=== PATIENT | female | born 1965 | race Caucasian/White ===

== ENCOUNTER 2023-04-28 09:40 | Emergency (ER) | payer MEDICARE, MEDICAID, SELFPAY ==
[2023-04-28] VITALS (20 sets, daily range): BP systolic 126; BP diastolic 90; PULSE 71–92; RESP 11–25; TEMP 36.7–37.1; O2SAT 92–97; BMI 32.1
--- NOTE | 2023-04-28 09:54 | XR_ITS ---
The [address] [address] Patient Name: AMALIA FONTAINE MRN: [id number] date: 1965 Sex: F Assigned Patient Location: ED.MAIN Current Patient Location: ER Accession/Order Number: [id number] Exam Date: 04/28/2023 10:30 Report Date: 04/28/2023 10:50 At the request of: VICTORIA DORSEY Procedure: XR chest 2V EXAM: CHEST 2 VIEWS HISTORY: shortness of breath TECHNIQUE: PA and lateral views chest. COMPARISON: 10/12/2022. FINDINGS: Small area of curvilinear atelectasis is seen at the lateral left lower lobe. There is no focal lung consolidation, pleural effusion or pneumothorax. Pulmonary vasculature is within normal limits there is aortic atherosclerosis. Heart size within normal limits. There are degenerative spurs of the thoracic spine. XR/XR chest 2V IMPRESSION: 1. Small area of curvilinear atelectasis at the left lower lobe. Otherwise, clear lungs without acute cardiopulmonary disease. 2. Atherosclerosis and normal heart size. Electronically authenticated by: ADÁN GASCA Date: 04/28/2023 10:50
--- NOTE | 2023-04-28 10:19 | ECG_ITS ---
The [facility] Test Date: 2023-04-28 Pat Name: AMALIA FONTAINE Department: Room: - Gender: Female [employer]: : 1965 Requested By: LUCI CASTRO Order Number: [id number] Reading MD: JORDANA HALL Measurements Intervals [place] Rate: 77 P: 53 PA: 134 QRS: 70 QRSD: 90 T: 48 QT: 378 QTc: 410 Interpretive Statements 1100 Sinus rhythm 9110 normal ECG No previous ECG available for comparison Electronically Signed On 04-29-2023 12:34:50 EDT by JORDANA HALL
[2023-04-28] MEDS: IPRATROPIUM/ALBUTEROL SULFATE 3 ML AMPUL.NEB IH (11:04)
[2023-04-28 12:44] LABS: SARS-CoV-2 Ag NEGATIVE (NEGATIVE)
--- NOTE | 2023-04-28 12:45 | ED.GENADUL1 ---
HPI - General Adult General Chief complaint: Shortness of Breath/Dyspnea Stated complaint: SHORTNESS OF BREATH Time Seen by Provider: 04/28/23 10:18 Source: patient Mode of arrival: walk-in History of Present Illness HPI narrative: Patient is a 57-year-old female who is presenting to the Emergency Room chief complaint flulike symptoms for the past 2 days. Patient's had a cold, sinus congestion, sinus headache, cough, congestion, and short of breath for the past 2 days. Patient does have a history of emphysema and chronic obstructive pulmonary disease. Patient is not a diabetic. Patient does have inhalers and aerosol machines at home. Patient has been taking DayQuil and intermittent aerosol with little relief. Patient has no recent traveling, no other sick contacts. Patient has no chest pain or heaviness. Patient does have shortness of breath with exertion, she can feel herself wheezing. No dental pain, nausea vomiting. No diarrhea. No rash. No acute complaints. Patient was not initially concerned about, but then she did finally agree to take a COVID test. . All systems are negative except as noted/marked. All systems reviewed and otherwise negative. . Nurses note and vital signs reviewed and patient is not hypoxic. General: The patient appears well and in no apparent distress. Patient is resting comfortably on cart. Patient is not toxic, lethargic, or listless Skin: Warm, dry, no pallor noted. There is no rash noted. No petechiae, purpura. Head: Normocephalic, atraumatic, Patient has mild tenderness to palpation to bilateral frontal maxillary sinus. Eye: Normal conjunctiva, no drainage, EOMI. PERRL Ears, Nose, Mouth, and Throat: oral mucosa is moist. Nares patent. Mouth without vesicles. Cardiovascular: Regular Rate and Rhythm, no murmur, gallop, rub Respiratory: Patient is in no distress, no accessory muscle use, lungs are Bilateral expiratory/inspiratory wheezing, NO rales or rhonchi Back: non-tender, no CVA tenderness bilaterally to percussion. No CT LS midline pain GI: soft, no tenderness to palpation, no masses appreciated. No rebound, guarding, or rigidity noted. No flank pain bilateral, No distention Musculoskeletal: Patient has full range of motion of all of the extremities, no motor, sensory, or focal neurological deficits Neurological: A&O x3, normal speech Psychiatric: Cooperative Related Data Previous Rx's Medication Instructions Recorded prednisone 50 mg tablet 50 mg PO DAILY 3 days #3 tabs 04/28/23 Allergies Allergy/AdvReac Type Severity Reaction Status Date / Time theophylline AdvReac Shakiness Verified 04/28/23 09:51 Exam Constitutional Vital Signs, click to edit/add: Last Vital Signs Temp 98.7 F 04/28/23 14:05 Pulse 79 04/28/23 14:05 Resp 18 04/28/23 14:05 BP 126/90 04/28/23 09:45 Pulse Ox 93 L 04/28/23 14:05 O2 Del Method Room Air 04/28/23 14:05 Course Vital Signs Vital signs: Vital Signs Temperature 98.0 F 04/28/23 09:45 Pulse Rate 83 04/28/23 09:45 Respiratory Rate 22 04/28/23 09:45 Blood Pressure 126/90 04/28/23 09:45 Pulse Oximetry 95 04/28/23 09:45 Oxygen Delivery Method Room Air 04/28/23 09:45 Temperature 98.7 F 04/28/23 14:05 Pulse Rate 79 04/28/23 14:05 Respiratory Rate 18 04/28/23 14:05 Blood Pressure 126/90 04/28/23 09:45 Pulse Oximetry 93 L 04/28/23 14:05 Oxygen Delivery Method Room Air 04/28/23 14:05 Medical Decision Making MDM Narrative Medical decision making narrative: Chest x-ray shows no acute cardiopulmonary disease, no infiltrate. Patient COVID test is negative. Patient was educated on using DayQuil, NyQuil, Flonase at home. Patient Was given 3 day prescription for prednisone. Patient will continue using Tylenol and anti-inflammatories. Patient has intermittently used DayQuil and Motrin. Patient will follow-up with PCP, no questions at discharge. Lab Data Labs: Lab Results 04/28/23 Range/Units 12:20 SARS-CoV-2 (PCR) Negative (NEGATIVE) SARS-CoV-2 RNA (JEET) Not detected (NOT DETECTE) ECG Data Attestation: I personally reviewed and interpreted this ECG as follows: (EKG interpretation. Normal sinus rhythm at 77 beats a minute. Normal axis deviation. No acute ST elevation, no acute ectopy. QTC of 410.) Discharge Plan Discharge Chief Complaint: Shortness of Breath/Dyspnea Clinical Impression: URI (upper respiratory infection), Cough, Sinusitis, COPD exacerbation Patient Disposition: Home, Self-Care Condition: Good Prescriptions / Home Meds: New prednisone 50 mg tablet 50 mg PO DAILY 3 Days Qty: 3 0RF Instructions: Sinusitis (ED), Upper Respiratory Infection (ED), COPD (Chronic Obstructive Pulmonary Disease) (ED) Additional Instructions: Use [id number] DayQuil, NyQuil, Flonase. Use and continue using Tylenol and Motrin. 3 days of prednisone have been prescribed to him, continue using inhalers and nebulizers at home. Today work note given. Increase fluids. Stand Alone Forms: Work/School Release, Portal Instructions Referrals: Viridiana Mark [Primary Care Provider] - 1 week Discharge Date/Time: 04/28/23 14:07
[2023-04-28 15:27] LABS: SARS-CoV-2 NAA NOT DETECTED (NOT DETECTE)
== END 2023-04-28 14:07 | disposition home or self-care (01) ==
PROVIDERS: Emergency Provider Emergency Medicine; PCP Nurse Practitioner
DX: J06.9 Acute upper respiratory infection, unspecified (principal); R05.9 Cough, unspecified; J32.9 Chronic sinusitis, unspecified; J43.9 Emphysema, unspecified; Z20.822 Contact with and (suspected) exposure to COVID-19
CPT/HCPCS: 71046; 87635; 87811; 93005; 94640; 99285; U0003

== ENCOUNTER 2023-10-10 12:10 | Emergency (ER) | payer MEDICARE, MEDICAID, SELFPAY ==
[2023-10-10] VITALS (8 sets, daily range): BP systolic 131–143; BP diastolic 75–87; PULSE 71–88; RESP 12–22; TEMP 36.8; O2SAT 95–96; BMI 29.3
--- NOTE | 2023-10-10 12:56 | ECG_ITS ---
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
--- NOTE | 2023-10-10 12:57 | XR_ITS ---
The [address] [address] Patient Name: AMALIA FONTAINE MRN: [id number] date: 1965 Sex: F Assigned Patient Location: ER Current Patient Location: ER Accession/Order Number: [id number] Exam Date: 10/10/2023 13:40 Report Date: 10/10/2023 14:34 At the request of: ABDOUL CORDOVA Procedure: XR chest 2V EXAM: CHEST 2 VIEWS HISTORY: shortness of breath cough and congestion. TECHNIQUE: PA and lateral views chest. COMPARISON: 04/28/2023 FINDINGS: Small area of curvilinear atelectasis in the lingula is unchanged. There is no focal lung consolidation, pleural effusion or pneumothorax. Pulmonary vasculature is within normal limits. The cardiomediastinal silhouette is normal. XR/XR chest 2V IMPRESSION: 1. No acute cardiopulmonary disease. Small area of curvilinear atelectasis in the lingula unchanged. Electronically authenticated by: ADÁN GASCA Date: 10/10/2023 14:34
[2023-10-10 13:33] LABS: Basophils Absolute Auto 0.1 10^3/uL (0.0-0.1); Basophils Percent Auto 1.2 % (0.2-2.0); Eosinophils Absolute Auto 0.1 10^3/uL (0.0-0.7); Eosinophils Percent Auto 1.2 % (0.9-7.0); Hematocrit 43.6 % (36.0-48.0); Hemoglobin 14.7 g/dL (12.0-16.0); Immature Granulocytes Abs Auto 0.01 10^3/uL (0.00-0.03); Immature Granulocytes Pct Auto 0.2 % (0.0-0.5); Lymphocytes Absolute Auto 1.5 10^3/uL (1.2-3.8); Mean Corpuscular HGB Conc 33.7 g/dL (29.9-35.2); Mean Corpuscular Hemoglobin 31.1 pg (26.7-34.0); Mean Corpuscular Volume 92.2 fL (81.0-99.0); Mean Platelet Volume 9.5 fL (9.5-13.5); Monocytes Absolute Auto 0.4 10^3/uL (0.3-0.8); Monocytes Percent Auto 8.4 % (1.7-12.0); Neutrophils Absolute Auto 2.8 10^3/uL (1.4-6.5); Platelet Count 261 10^3/uL (150-450); Red Blood Count 4.73 10^6/uL (4.20-5.40); Red Cell Distribution Width 13.7 % (11.0-15.0); White Blood Count 4.9 10^3/uL (4.0-11.0)
[2023-10-10 14:36] LABS: Anion Gap 15.1; BUN Creatinine Ratio 7.9; Calcium 9.2 mg/dL (8.5-10.1); Carbon Dioxide 24.4 mmol/L (21.0-32.0); Chloride 107 mmol/L (98-107); Estimated GFR (African America >60 (>=60); Estimated GFR (Non-African Ame >60 (>=60); Glucose 92 mg/dL (74-106); Potassium 3.5 mmol/L (3.5-5.1); Sodium 143 mmol/L (136-145)
--- NOTE | 2023-10-10 19:47 | ED.GENADUL1 ---
HPI - General Adult General Chief complaint: Upper Respiratory Infection Stated complaint: COUGH/CONGESTION Time Seen by Provider: 10/10/23 12:55 Source: patient Mode of arrival: walk-in Limitations: no limitations History of Present Illness HPI narrative: 57-year-old female to the emergency department with chief complaint of cough. Patient reports she has a history of chronic obstructive pulmonary disease. She is on prednisone a few weeks ago and had improved however she continues to have a productive cough she is using breathing treatments at home with minimal relief. She denies any chest pain. She denies any fever, sweats, chills. She denies any leg swelling. Related Data Home Medications Medication Instructions Recorded Confirmed albuterol sulfate 2.5 mg/3 mL 2.5 mg continuous nebulization Q4H 10/10/23 10/10/23 (0.083 %) solution for nebulization budesonide 160 mcg-glycopyr 9 2 inh inhalation BID 10/10/23 10/10/23 mcg-formot 4.8 mcg/actuation HFA inhaler ([employer]) Previous Rx's Medication Instructions Recorded azithromycin 250 mg tablet See Rx Instructions PO .COMPLEX #6 10/10/23 (Zithromax Z-Gilson) tabs prednisone 20 mg tablet 60 mg (3 x 20 mg) PO DAILY 5 days 10/10/23 #15 tabs Allergies Allergy/AdvReac Type Severity Reaction Status Date / Time theophylline AdvReac Shakiness Verified 10/10/23 12:20 Review of Systems ROS Status of ROS 10 or more systems reviewed and unremarkable except as noted in history and below [facility] Social History Smoking status: Current every day smoker Exam Narrative Exam Narrative: VITALS: I have reviewed the triage vital signs. GENERAL: Well developed, well appearing adult in no acute distress. NEURO: Alert and oriented. Moves all extremities. Face is symmetric and expressive. EYES: PERRL. No scleral icterus or conjunctival injection. No discharge. HENT: Normocephalic, atraumatic. Hearing is grossly intact. Nares grossly patent and without discharge. Mucous membranes moist. NECK: No JVD. Patient moves neck without restriction. CARDIO: Rhythm regular. Normal rate. No murmur, rub, or gallop. Pulses equal bilaterally in the upper and lower extremity. No lower extremity edema. PULM:Dry cough on exam. Trace wheezes. No conversational dyspnea. No increased work of breathing. GI/: Abdomen is soft and non-tender. Normoactive bowel sounds. EXTREMITIES: Symmetric muscle bulk. No joint swelling. No clubbing, cyanosis, or deformity. SKIN: Warm and dry. Normal turgor. No rash or lesions appreciated. PSYCH: Mood, affect, and interaction is appropriate to the setting. Constitutional Vital Signs, click to edit/add: Last Vital Signs Temp 98.3 F 10/10/23 12:21 Pulse 79 10/10/23 13:30 Resp 21 10/10/23 13:30 BP 131/75 10/10/23 13:09 Pulse Ox 96 10/10/23 13:50 O2 Del Method Room Air 10/10/23 12:21 Course Vital Signs Vital signs: Vital Signs Temperature 98.3 F 10/10/23 12:21 Pulse Rate 77 10/10/23 12:21 Blood Pressure 143/87 H 10/10/23 12:21 Pulse Oximetry 96 10/10/23 12:21 Oxygen Delivery Method Room Air 10/10/23 12:21 Temperature 98.3 F 10/10/23 12:21 Pulse Rate 79 10/10/23 13:30 Respiratory Rate 21 10/10/23 13:30 Blood Pressure 131/75 10/10/23 13:09 Pulse Oximetry 96 10/10/23 13:50 Oxygen Delivery Method Room Air 10/10/23 12:21 Medical Decision Making MDM Narrative Medical decision making narrative: 57-year-old female chronic obstructive pulmonary disease to the emergency Department chief complaint of cough and mild shortness of breath. Vital stable, patient is afebrile. Chest x-ray with lingular infiltrate by my read. She does have productive cough. This may correlate to a infiltrative pneumonia. Labwork otherwise unremarkable. EKG without acute findings. Z-Gilson and prednisone are prescribed. She'll continue breathing treatments at home. Return precautions were discussed. All questions were answered. The patient was discharged home. Medical Records Medical records reviewed: Yes I reviewed the patient's medical records Lab Data Lab results reviewed: Yes I reviewed the patient's lab results Labs: Lab Results 10/10/23 Range/Units 13:20 WBC 4.9 (4.0-11.0) 10^3/uL RBC 4.73 (4.20-5.40) 10^6/uL Hgb 14.7 (12.0-16.0) g/dL Hct 43.6 (36.0-48.0) % MCV 92.2 (81.0-99.0) fL MCH 31.1 (26.7-34.0) pg MCHC 33.7 (29.9-35.2) g/dL RDW 13.7 (11.0-15.0) % Plt Count 261 (150-450) 10^3/uL MPV 9.5 (9.5-13.5) fL Neut % (Auto) 58.0 (43.0-75.0) % Lymph % (Auto) 31.0 (20.5-60.0) % [place] % (Auto) 8.4 (1.7-12.0) % Eos % (Auto) 1.2 (0.9-7.0) % Baso % (Auto) 1.2 (0.2-2.0) % Neut # (Auto) 2.8 (1.4-6.5) 10^3/uL Lymph # (Auto) 1.5 (1.2-3.8) 10^3/uL [place] # (Auto) 0.4 (0.3-0.8) 10^3/uL Eos # (Auto) 0.1 (0.0-0.7) 10^3/uL Baso # (Auto) 0.1 (0.0-0.1) 10^3/uL Abs Immat Gran (auto) 0.01 (0.00-0.03) 10^3/uL Imm/Tot Granulo (auto) 0.2 (0.0-0.5) % Sodium 143 (136-145) mmol/L Potassium 3.5 (3.5-5.1) mmol/L Chloride 107 (98-107) mmol/L Carbon Dioxide 24.4 (21.0-32.0) mmol/L Anion Gap 15.1 BUN 5.0 L (7.0-18.0) mg/dL Creatinine 0.63 (0.55-1.02) mg/dL Est GFR ( Amer) >60 (>=60) Est GFR (Non-Af Amer) >60 (>=60) BUN/Creatinine Ratio 7.9 Glucose 92 (74-106) mg/dL Calcium 9.2 (8.5-10.1) mg/dL NT-Pro-B Natriuret Pep 99.0 (<=900.0) pg/mL ECG Data Attestation: ?I have reviewed the pertinent ECG results. (No STEMI. Normal QTC. Normal rate.) Discharge Plan Discharge Chief Complaint: Upper Respiratory Infection Clinical Impression: COPD exacerbation, Pneumonia Patient Disposition: Home, Self-Care Time of Disposition Decision: 15:20 Condition: Good Mode of Transportation: Private Vehicle Prescriptions / Home Meds: New azithromycin [Zithromax Z-Gilson] 250 mg tablet See Rx Instructions .ROUTE .COMPLEX Qty: 6 0RF Rx Instructions: For 250 mg dose pack: take 500 mg today (day 1), then 250 mg for 4 days (days 2-5) prednisone 20 mg tablet 60 mg PO DAILY 5 Days Qty: 15 0RF No Action albuterol sulfate 2.5 mg /3 mL (0.083 %) solution for nebulization 2.5 mg continuous nebulization Q4H [facility] [employer] 160-9-4.8 mcg/actuation HFA aerosol inhaler 2 inh INHALATION BID Print Language: [place] Instructions: COPD (Chronic Obstructive Pulmonary Disease) (ED), Community Acquired Pneumonia (ED) Referrals: Viridiana Mark NP [Primary Care Provider] - 1 week Discharge Date/Time: 10/10/23 15:32 Stand Alone Forms: Portal Instructions
== END 2023-10-10 15:32 | disposition home or self-care (01) ==
PROVIDERS: Emergency Provider Student in an Organized Health Care Education/Training Program; PCP Nurse Practitioner
DX: J18.9 Pneumonia, unspecified organism (principal); J44.1 Chronic obstructive pulmonary disease with (acute) exacerbation; J44.0 Chronic obstructive pulmonary disease with (acute) lower respiratory infection; Z79.51 Long term (current) use of inhaled steroids; F17.200 Nicotine dependence, unspecified, uncomplicated; R06.02 Shortness of breath
CPT/HCPCS: 36415; 71046; 80048; 83880; 85025; 93005; 99285

== ENCOUNTER 2024-05-17 08:40 | Outpatient (OUT) | payer MEDICARE, MEDICAID, SELFPAY ==
--- OUTSIDE RECORDS SUMMARY | 2024-05-17 08:43 | XMS_ITS | CCD ---
Author Organization [facility] [place] [facility] Care Team Providers Care Safety Director Name Role Phone Ale Victoria Unavailable AICHHOLZ, LEGAL SUPPORT SPECIALIST LUCI Primary Care Unavailable MARKER ., DR TUCKER Admitting Unavailable MARKER ., DR TUCKER Attending Unavailable MARKER ., DR TUCKER Consulting Unavailable TRISTIAN GASPAR Consulting Unavailable AICHHOLZ, LEGAL SUPPORT SPECIALIST LUCI Admitting Unavailable AICHHOLZ, LEGAL SUPPORT SPECIALIST LUCI Attending Unavailable AICHHOLZ, LEGAL SUPPORT SPECIALIST LUCI Primary Care Unavailable AICHHOLZ, LEGAL SUPPORT SPECIALIST LUCI Consulting Unavailable AICHHOLZ, LEGAL SUPPORT SPECIALIST LUCI Admitting Unavailable AICHHOLZ, LEGAL SUPPORT SPECIALIST LUCI Attending Unavailable AICHHOLZ, LEGAL SUPPORT SPECIALIST LUCI Primary Care Unavailable TRISH, DR CANDI Ramirez Consulting Unavailable AICHHOLZ, LEGAL SUPPORT SPECIALIST LUCI Consulting Unavailable AICHHOLZ, LEGAL SUPPORT SPECIALIST LUCI Primary Care Unavailable TENZIN LONGO Admitting Unavailable JAMES ., TENZIN Attending Unavailable TENZIN LONGO Consulting Unavailable CANDI LANGFORD Consulting Unavailable AICHHOLZ, LEGAL SUPPORT SPECIALIST LUCI Primary Care Unavailable JOSHUA ., DR NOE Admitting Unavailable HAY ., DR NOE Attending Unavailable HAY ., DR NOE Consulting Unavailable AICHHOLZ, LEGAL SUPPORT SPECIALIST LUCI Primary Care Unavailable HAY ., DR NOE Admitting Unavailable JOSHUA ., DR NOE Attending Unavailable KOLTON .NEGIN Consulting UnavailLOWELL De Santiago Consulting Unavailable Magdalena Carrington Unavailable Saad Boyce MD Primary Care Provider AICHHOLZ, LUCI J Primary Care Unavailable SONAL JIM Attending Unavailable SONAL JIM Attending Unavailable SONAL JIM Referring Unavailable AICHHOLZ, LUCI J Primary Care Unavailable AICHHOLZ, LUCI J Primary Care Unavailable ALEC BASS Attending Unavailable ALEC BASS Attending Unavailable ALEC BASS Referring Unavailable AICHHOLZ, LUCI J Primary Care Unavailable ZANDRA BAI Attending Unavailable ZANDRA BAI Referring Unavailable LUCI CASTRO Attending Unavailable LUCI CASTRO Attending Unavailable Allergies Allergy Classification Reported Allergen(s) Allergy Type Date of Onset Reaction(s) Facility (3 sources) Theophylline; Translations: [THEOPHYLLINE] Drug Allergy 11-29-2023 pavan [facility] Repository (1 source) Theophylline Drug Allergy [facility] Repository Medications Current Medications Medication Drug Class(es) Dates Sig (Normalized) Sig (Original) Albuterol (4 sources) beta2-Adrenergic Agonist Ventolin HFA Act anand Albuterol Active Breztri Aerosphere (2 sources) Breztri Aerosphe re Active Budesonide / formoterol (2 sources) Corticosteroid, beta2-Adrenergic Agonist Symbicort Active cetirizine hydrochloride 10 mg oral tablet (1 source) Histamine-1 Receptor Antagonist Start: 10-04-2022 take 1 tablet by mouth every twenty-four hours Cetirizine HCl 10 MG 1 tablet Orally Once a day for 30 day(s) Sep, Active methylPREDNISolone (2 sources) Corticosteroid methylPREDNISolo ne Not-Taking Phentermine (1 source) Sympathomimetic Amine Anorectic Adipex-P Active Completed/Discontinued Medications Medication Drug Class(es) Dates Sig (Normalized) Sig (Original) azelastine (1 source) Histamine-1 Receptor Antagonist Azelastine HCl Not-Taking cephalexin 500 mg oral capsule (1 source) Cephalosporin Antibacterial Start: 02-20-2019 take 1 capsule by mouth every twelve hours Cephalexin 500 MG 1 capsule Orally every 12 hrs for 10 day(s) Feb, Not-Taking fluticasone (1 source) Corticosteroid Fluticasone Propionate Not-Taking lidocaine hydrochloride 20 mg/ml mucous membrane topical solution (1 source) Antiarrhythmic, Amide Local Anesthetic Start: 02-20-2019 take 10 mL by mouth every three hours Lidocaine Viscous 2 % 10 ml swish in mouth, gargle, and spit. every 3 hrs for 2 days Feb, Not-Taking naproxen 500 mg oral tablet (1 source) Nonsteroidal Anti-inflammatory Drug Start: 2016 take 1 tablet by mouth every twelve hours Naproxen 500 MG 1 tablet as needed Orally every 12 hrs Nov, Not-Taking Theophylline (1 source) Methylxanthine Theophylline ER Not-Taking triamcinolone acetonide 40 mg/ml injectable suspension (1 source) Corticosteroid Start: 10-04-2022 Kenalog-40 28 Sep, 2022 40 mg Problems Active Problems Problem Classification Problem Date Documented Da te Episodic/Chronic Anxiety disorders (4 sources) Anxiety disorder, unspecified; Translations: [ANXIETY DISORDER UNSPECIFIED] Onset: 08-01-2022 Chronic Chronic obstructive pulmonary disease and bronchiectasis (4 sources) Chronic obstructive pulmonary disease with (acute) exacerbation; Translations: [Chronic obstructive pulmonary disease, unspecified] Onset: 08-02-2022 Chronic E Codes: Fall (1 source) Unspecified fall, initial encounter; Translations: [Unspecified fall, initial encounter] Onset: 04-07-2024 Episodic E Codes: Fall (1 source) Fall Onset: 04-07-2024 Headache; including migraine (3 sources) Headache; including migraine; Translations: [HEADACHE UNSPECIFIED] Onset: 01-13-2022 Other aftercare (1 source) Other buttermaker helper (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) drug therapy; Translations: [OTH MIXER AND SCALER CURRENT DRUG THERAPY] Onset: 08-02-2022 Episodic Other lower respiratory disease (4 sources) Shortness of breath; Translations: [SHORTNESS OF BREATH] Onset: 04-11-2022 Episodic Other lower respiratory disease (1 source) Rib pain Onset: 02-28-2024 Episodic Other non-traumatic joint disorders (1 source) Pain in left knee; Translations: [Pain in left knee] Onset: 04-07-2024 Episodic Respiratory failure; insufficiency; arrest (adult) (1 source) Dependence on supplemental oxygen; Translations: [DEPENDENCE ON SUPPLEMENTAL OXYGEN] Onset: 04-14-2022 Chronic Screening and history of mental health and substance abuse codes (1 source) Personal history of nicotine dependence; Translations: [PERSONAL HISTORY OF NICOTINE DEPEND] Onset: 10-14-2022 Episodic Sprains and strains (1 source) Strain of muscle and tendon of front wall of thorax, initial encounter; Translations: [Strain of muscle and tendon of front wall of thorax, initial encounter] Onset: 02-28-2024 Episodic Superficial injury; contusion (1 source) Contusion of eyeball and orbital tissues, left eye, initial encounter; Translations: [Contusion of eyeball and orbital tissues, left eye, initial encounter] Onset: 04-07-2024 Episodic Unclassified (2 sources) COUGH, UNSPECIFIED; Translations: [COUGH, UNSPECIFIED] Onset: 10-14-2022 Unclassified (1 source) PAIN RT RIBS Onset: 02-28-2024 Viral infection (1 source) COVID-19; Translations: [COVID-19] Onset: 01-16-2022 Past or Other Problems Problem Classification Problem Date Documented Da te Episodic/Chronic Nonspecific chest pain (4 sources) Chest pain, unspecified; Translations: [CHEST PAIN UNSPECIFIED] Onset: 05-16-2022 Episodic Open wounds of extremities (1 source) Laceration without foreign body of right middle finger without damage to nail, initial encounter Onset: 04-08-2022 Resolved: 04-08-2022 Episodic Unclassified (1 source) COUGH, UNSPECIFIED; Translations: [COUGH, UNSPECIFIED] Onset: 10-12-2022 Results Test Name Value Interpretation Reference Range Facility CT BRAIN WO CONTon CT BRAIN WO CONT CT BRAIN WO CONT Examination: Noncontrast brain CT Date of Exam:04/07/2024 Clinical History:Fall head pain Comparison:None Procedure: Multi-detector CT performed through the brain without IV contrast. Automatic exposure control (AEC) was utilized. Findings: There is no intracranial hemorrhage, extra-axial fluid collection, mass effect, or hydrocephalus. Ballesteros-white matter differentiation is appropriate. Infarcts may be occult on CT, but grossly no acute infarct identified There is no midline shift. There is a prominent CSF space at the posterior aspect of the posterior fossa in the midline which could represent a congenital variant. IMPRESSION: 1. No acute findings. All CT scans at this facility use dose modulation, iterative reconstruction, and/or weight based dosing when appropriate to reduce radiation dose to as low as reasonably achievable. Finalized by Fermín Porras MD on 04/07/2024 11:01 AM [facility] CT CERVICAL SPINE WO CONTon 04-07-2024 CT CERVICAL SPINE WO CONT CT CERVICAL SPINE WO CONT Examination: CT cervical spine without contrast. Date of Exam:04/07/2024 Clinical History:Trauma neck pain Comparison:None Procedure: Multi-detector CT performed through the cervical spine in the axial projection with coronal and sagittal reconstructions. Automatic exposure control (AEC) was utilized. Findings: There is no prevertebral soft tissue swelling. There is no fracture, malalignment or destructive lesion. IMPRESSION: 1. No acute findings. All CT scans at this facility use dose modulation, iterative reconstruction, and/or weight based dosing when appropriate to reduce radiation dose to as low as reasonably achievable. Finalized by Fermín Porras MD on 04/07/2024 11:05 AM Normal [facility] CT FACIAL BONES WO CONTon CT FACIAL BONES WO CONT CT FACIAL BONES WO CONT Examination: CT facial bones without contrast. History:Trauma facial pain Procedure: Multidetector CT is performed through the face in the axial projection with coronal reconstructions. Automatic exposure control (AEC) was utilized. Comparison:None Findings: There is no fracture or destructive lesion with attention to orbits, zygomatic arch, nasal bones, and paranasal sinuses. No soft tissue mass within the orbits. Extraocular muscles are symmetric. IMPRESSION: 1. No acute changes. All CT scans at this facility use dose modulation, iterative reconstruction, and/or weight based dosing when appropriate to reduce radiation dose to as low as reasonably achievable. Finalized by Fermín Porras MD on 04/07/2024 11:06 AM Normal [facility] XR RIBS RT 3 VWS W PA CHESTo n 02-28-2024 XR RIBS RT 3 VWS W PA CHEST XR RIBS RT 3 VWS W PA CHEST Right RIBS: HISTORY: Right rib pain. 3 views of the right ribs were obtained. No acute osseous abnormality is seen. No obvious displaced rib fracture. Superior grossly clear. Left hemidiaphragm is slightly eventrated. IMPRESSION: No acute findings. Finalized by Mayo Springer MD on 02/28/2024 10:57 PM Normal [facility] XR CHEST 2 VIEWSon 4 XR CHEST 2 VIEWS FINDINGS: Lung volumes are slightly increased consistent with early COPD changes. No focal infiltrates, nodules or suspicious mass lesions are seen. Mild right lower lobe and lingular subsegmental atelectasis. Bilateral hilar calcified granulomas. Cardiac silhouette and skeletal structure are unremarkable. IMPRESSION: COPD, no localizing of infiltrates. Lingular and basilar findings may represent an interstitial pneumonia if clinically suspect. This can serve as a baseline for follow-up examinations following appropriate medical management TRANSCRIBED BY: ELECTRONICALLY SIGNED BY: Leonardo Metcalf MD Normal Not Available BNPon 10-12-2022 Natriuretic peptide B (Bld) [Mass/Vol] 31.0 pg/mL Normal <=900.0 [facility] Comment on above: Performed By: #### H STROPN, CMP, BNP ####[facility] [address] [place] [address]Dr. Josafat Love CBC AUTO DIFFon 10-12-2022 BASO # 0.0 103/ul Normal 0.0-0.1 [facility] Comment on above: Performed By: #### C BC ####[facility] [address] [place], [place] [address]Dr. Josafat Love Basophils/100 WBC (Bld) 0.4 % Normal 0.2-2.0 [facility] Comment on above: Performed By: #### C BC ####[facility] [address] [place], [place] [address]Dr. Josafat Love EO # 0.1 103/ul Normal 0.0-0.7 [facility] Comment on above: Performed By: #### C BC ####[facility] [address] [place], [place] [address]Dr. Josafat Love Eosinophils/100 WBC (Bld) 1.3 % Normal 0.9-7.0 [facility] Comment on above: Performed By: #### C BC ####[facility] [address] [place], [place] [address]Dr. Josafat Love Erythrocyte distribution width (RBC) [Ratio] 13.1 % Normal 11.0-15.0 [facility] Comment on above: Performed By: #### C BC ####[facility] [address] [place], [place] [address]Dr. Josafat Love Hematocrit (Bld) [Volume fraction] 45.0 % Normal 36.0-48.0 [facility] Comment on above: Performed By: #### C BC ####[facility] [address] [place], [place] [address]Dr. Josafat Love Hemoglobin (Bld) [Mass/Vol] 15.0 g/dL Normal 12.0-16.0 [facility] Comment on above: Performed By: #### C BC ####[facility] [address] [place] [address]Dr. Aprilgeo Love IG # 0.03 10e3/ul Normal 0.00-0.03 [facility] Comment on above: Performed By: #### C BC ####[facility] [address] [place] [address]Dr. Josafat Love IG % 0.3 % Normal 0.0-0.5 [facility] Comment on above: Performed By: #### C BC ####[facility] [address] [place] [address]DrAllyssa Love LYMPH # 1.9 103/ul Normal 1.2-3.8 [facility] Comment on above: Performed By: #### C BC ####[facility] [address] [place] [address]Dr. Josafat Love Lymphocytes/100 WBC (Bld) 19.5 % Critically low 20.5-60.0 [facility] Comment on above: Performed By: #### C BC ####[facility] [address] [place] [address]Dr. Aprilgeo Love MANUAL DIFF REQ NO Normal [facility] Comment on above: Performed By: #### C BC ####[facility] [address] [place] [address]DrAllyssa Josafat Ivan MCH (RBC) [Entitic mass] 29.8 pg Normal 26.7-34.0 [facility] Comment on above: Performed By: #### C BC ####[facility] [address] [place] [address]DrAllyssa Love MCHC (RBC) [Mass/Vol] 33.3 g/dL Normal 29.9-35.2 [facility] Comment on above: Performed By: #### C BC ####[facility] [address] [place] [address]Dr. Josafat Ivan MCV (RBC) [Entitic vol] 89.3 fL Normal 81.0-99.0 [facility] Comment on above: Performed By: #### C BC ####[facility] [address] [place] [address]DrAllyssa Josafat Love MONO # 0.5 103/ul Normal 0.3-0.8 [facility] Comment on above: Performed By: #### C BC ####[facility] [address] [place], [place] [address]DrAlylssa Josafat Ivan Monocytes/100 WBC (Bld) 5.3 % Normal 1.7-12.0 [facility] Comment on above: Performed By: #### C BC ####[facility] [address] [place], [place] [address]Dr. Josafat Love NEUT # 7.2 103/ul Critically high 1.4-6.5 [facility] Comment on above: Performed By: #### C BC ####[facility] [address] [place], [place] [address]Dr. Aprilgeo Love Neutrophils/100 WBC (Bld) 73.2 % Normal 43.0-75.0 [facility] Comment on above: Performed By: #### C BC ####[facility] [address] [place], [place] [address]DrAllyssa Josafat Ivan Platelet mean volume (Bld) [Entitic vol] 8.9 fL Critically low 9.5-13.5 [facility] Comment on above: Performed By: #### C BC ####[facility] [address] [place], [place] [address]Dr. Aprilgeo Ivan PLT 282 103/ul Normal 150-450 [facility] Comment on above: Performed By: #### C BC ####[facility] [address] [place], [place] [address]DrAllyssa Love RBC 5.04 106/ul Normal 4.20-5.40 [facility] Comment on above: Performed By: #### C BC ####[facility] [address] [place], [place] [address]DrAllyssa Love WBC 9.9 103/ul Normal 4.0-11.0 [facility] Comment on above: Performed By: #### C BC ####[facility] [address] [place] [address]Dr. Josafat Love LACTATE/LACTIC ACIDon 2022 Lactate [Moles/Vol] 2.2 mmol/L Critically high 0.4-1.9 [facility] Comment on above: Performed By: #### L ACT #### [facility] [id number] Josafat Love PH VENOUS BLOODon 10-12-2022 PCO2 VENOUS 35.3 mmHg Critically low 40.0-52.0 [facility] Comment on above: Performed By: #### P HVEN ####[facility] [address] [place] [address]DrAllyssa Love pH VENOUS 7.426 Normal 7.330-7.430 [facility] Comment on above: Performed By: #### P HVEN ####[facility] [address] [place] [address]Dr. Josafat Love PROF 14(COMP METB)on 023 Albumin [Mass/Vol] 3.8 g/dL Normal 3.4-5.0 [facility] Comment on above: Performed By: #### H STROPN, CMP, BNP ####[facility] [address] [place] [id number]. Josafat Love Albumin/Globulin [Mass ratio] 1.2 {ratio} Normal [facility] Comment on above: Performed By: #### H STROPN, CMP, BNP ####[facility] [address] [place] [id number] Love ALP [Catalytic activity/Vol] 90 U/L Normal 46-116 [facility] Comment on above: Performed By: #### H STROPN, CMP, BNP ####[facility] [address] [place] [id number] Love ALT [Catalytic activity/Vol] 31 U/L Normal 14-59 [facility] Comment on above: Performed By: #### H STROPN, CMP, BNP ####[facility] [address] [place] [address]Dr. Josafat Love Anion gap [Moles/Vol] 16.3 mmol/L Normal [facility] Comment on above: Performed By: #### H STROPN, CMP, BNP ####[facility] [address] [place] [address]Dr. Josafat Love AST [Catalytic activity/Vol] 18 U/L Normal 15-37 [facility] Comment on above: Performed By: #### H STROPN, CMP, BNP ####[facility] [address] [place] [address]Dr. Josafat Love Bilirubin [Mass/Vol] 0.3 mg/dL Normal 0.2-1.0 [facility] Comment on above: Performed By: #### H STROPN, CMP, BNP ####[facility] [address] [place], [place] [address]Dr. Josafat Love Calcium [Mass/Vol] 9.1 mg/dL Normal 8.5-10.1 [facility] Comment on above: Performed By: #### H STROPN, CMP, BNP ####[facility] [address] [place], [place] [address]Dr. Josafat oLve Chloride [Moles/Vol] 106 mmol/L Normal 98-107 [facility] Comment on above: Performed By: #### H STROPN, CMP, BNP ####[facility] [address] [place] [address]Dr. Josafat Love CO2 [Moles/Vol] 23.8 mmol/L Normal 21.0-32.0 [facility] Comment on above: Performed By: #### H STROPN, CMP, BNP ####[facility] [address] [place] [address]Dr. Josafat Love Creatinine [Mass/Vol] 1.00 mg/dL Normal 0.55-1.02 [facility] Comment on above: Performed By: #### H STROPN, CMP, BNP ####[facility] [address] [place] [address]Dr. Josafat Love EGFR-AF ESTONIAN >60 Normal >=60 [facility] Comment on above: Performed By: #### H STROPN, CMP, BNP ####[facility] [address] [place] [address]Dr. Josafat Love EGFR-NON AF ESTONIAN 57 mL/min/1.73m2 Critically low >=60 [facility] Comment on above: Performed By: #### H STROPN, CMP, BNP ####[facility] [address] [place] [address]Dr. Josafat Love Globulin (S) [Mass/Vol] 3.3 g/dL Normal [facility] Comment on above: Performed By: #### H STROPN, CMP, BNP ####[facility] [address] [place], [place] [address]Dr. Josafat Love Glucose [Mass/Vol] 128 mg/dL Critically high 74-106 [facility] Comment on above: Performed By: #### H STROPN, CMP, BNP ####[facility] [address] [place], [place] [address]Dr. Josafat Love Potassium [Moles/Vol] 4.1 mmol/L Normal 3.5-5.1 [facility] Comment on above: Performed By: #### H STROPN, CMP, BNP ####[facility] [address] [place] [address]Dr. Josafat Love Protein [Mass/Vol] 7.1 g/dL Normal 6.4-8.2 [facility] Comment on above: Performed By: #### H STROPN, CMP, BNP ####[facility] [address] [place] [address]Dr. Josafat Love Sodium [Moles/Vol] 142 mmol/L Normal 136-145 [facility] Comment on above: Performed By: #### H STROPN, CMP, BNP ####[facility] [address] [place] [address]Dr. Josafat Love Urea nitrogen [Mass/Vol] 20.0 mg/dL Critically high 7.0-18.0 [facility] Comment on above: Performed By: #### H STROPN, CMP, BNP ####[facility] [address] [place] [address]Dr. Josafat Love Urea nitrogen/Creatinine [Mass ratio] 20.0 mg/mg Normal [facility] Comment on above: Performed By: #### H STROPN, CMP, BNP ####[facility] [address] [place] [id number]. Josafat Love PROTIMEon 10-12-2022 INR Coag (PPP) [Relative time] {INR} Normal [facility] Comment on above: Performed By: #### P TT, PT #### [facility] [address] [address] [address] Josafat Love INR GUIDELINES SEE BELOW Normal [facility] Comment on above: Result Comment: LIZETH RED INR: 2.0 - 3.0 CONDITIONS NOT LISTED BELOW 2.5 - 3.5 FOR PROSTHETIC HEART VALVE REPLACEMENT 2.5 - 3.5 RECURRENT THROMBOSIS Performed By: #### P TT, PT #### [facility] [address] [address] [address] Josafat Love PT Coag (PPP) [Time] 9.8 s Normal 9.0-11.6 [facility] Comment on above: Performed By: #### P TT, PT #### [facility] [address] [address] [address] Josafat Love PTTon 10-12-2022 aPTT Coag (Bld) [Time] 26.9 s Normal 22.3-36.2 [facility] Comment on above: Performed By: #### P TT, PT #### [facility] [address] [place] [address] Dr. Josafat Love TROPONIN, HIGH SENSITIVITYon 10-12-2022 HSTROP <4.0 Normal 4.0-51.3 [facility] Comment on above: Result Comment: CUT- OFF POINTS HAVE BEEN ESTABLISHED BASED ON THE FOURTH UNIVERSAL DEFINITIONS OF MYOCARDIAL INFARCTION. THE UPPER REFERENCE LIMIT (URL) OF TROPONIN, DEFINED THE 99TH PERCENTILE OF cTnI DISTRIBUTION IN A REFERENCE POPULATION, HAS BEEN CONFIRMED THE DECISION THRESHOLD FOR CO DIAGNOSIS. Performed By: #### H STROPN, CMP, BNP ####[facility] [address] [place], [place] [address]VtAllyssa Love XR CHEST 1 Von 10-12-2022 XR CHEST 1 V EXAM: XR CHEST 1 V REASON FOR EXAM: Female, 56 years, SHORTNESS OF BREATH. TECHNIQUE: A single AP view of the chest is performed. COMPARISON: 04/11/2022. FINDINGS: Cardiac monitoring leads project over the chest. There is minimal linear atelectasis or scar at the lung bases. Normal pleura. Normal size heart. Normal mediastinum and jluis. Normal visualized pulmonary arteries. Normal visualized aortic arch and descending thoracic aorta. Normal visualized thoracic spine. Normal visualized ribs, clavicles, and shoulders. There is no demonstrated abnormality of the visualized soft tissue structures of the upper abdomen. IMPRESSION: Minimal by basilar atelectasis or scar. No significant change from 04/11/2022. Electronically authenticated by: LOWELL VASQUES Date: 2022-10-12 17:11 Normal [facility] STRESS/REST MULTIon 05-16 NM STRESS/REST MULTI Patient: AMALIA FONTAINE Exam Date: 05/16/2022 : 1965 Gender:F Ordering : YA CASTRO [facility] Admission #: [id number] Family : Order #: [id number] CLICK HERE TO VIEW EXAM RADIOLOGY REPORT PROCEDURE: RADIONUCLIDE IMAGING STRESS/REST MULTI COMPARISON: NM STRESS/REST MULTI, 09/14/2017. NM STRESS/REST MULTI, 05/19/2015. INDICATIONS: Chest pain TECHNIQUE: Exam Description: Rest/Stress one day protocol gated SPECT Rest Imagin.7 mCi Tc-99m Cardiolite IV on 05/16/2022 Stress Imaging 30.8 mCi Tc-99m Cardiolite IV on 05/16/2022 Exercise Protocol: 0.4 mg Lexiscan given IV Heart Rate (bpm): Rest: 67 Max: 96 PMHR: 58 Blood Pressure: Rest: 120/82 Max: 124/80 Symptoms: Rest and peak stress ECG findings were normal and the exercise portion of the study was normal per attending physician Dr. Jimenes . For more details please see separate cardiac stress test report. FINDINGS: QUALITY OF STUDY: Good. PERFUSION DEFECT: None. LOCATION: N/A SIZE: N/A. SEVERITY: N/A. TYPE: N/A. WALL MOTION: Normal. LV SIZE: Normal. 55 mL. TID / TCD: None; 0.9 LVEF: Normal. Calculated EF 73%. SUMMARY: Myocardial perfusion imaging study is NORMAL. CONCLUSION: 1. Normal myocardial perfusion scan 2. Normal exercise test Dictated by: Candi Beyer MD on 05/17/2022 at 07:15 Approved by: Candi Beyer MD on 05/17/2022 at 07:17 Normal [facility] XR CHEST 1 Von 04-11-2022 XR CHEST 1 V EXAMINATION: XR CHES T 1 V HISTORY: Soreness of breath COMPARISON: Portable chest 01/13/2022 TECHNIQUE: Portable chest FINDINGS: The lung parenchyma is free of consolidation or infiltrate. No pneumothorax or pleural effusion. The cardiac, mediastinal and hilar contours are normal. The visualized osseous structures exhibit no gross abnormality. IMPRESSION: No acute cardiopulmonary abnormality. Electronically authenticated by: CANDI LANGFORD Date: 2022-04-11 16:00 Normal [facility] XR CHEST 1 Von 01-14-2022 XR CHEST 1 V EXAMINATION: XR CHES T 1 V, 01/13/2022 8:36 PM EDT HISTORY: COUGH COMPARISON: CT chest 09/21/2020. TECHNIQUE: Chest x-ray: One view. FINDINGS: SUPPORT APPARATUS/POST-SURGIC AL CHANGES: None. CARDIOMEDIASTINAL SILHOUETTE: Normal. AIRWAYS/LUNGS: Low lung volumes with mild to moderate bibasilar atelectasis but no focal consolidation. PLEURAL SPACES: No pleural effusion or pneumothorax. BONES AND SOFT TISSUES: No acute abnormality. IMPRESSION: 1. No acute process. 2. Bibasilar atelectasis/scarring. Electronically authenticated by: TRISTIAN GASPAR Date: 2022-01-13 23:23 Normal [facility] CBC AUTO DIFFon 01-13-2022 BASO # 0.0 103/ul Normal 0.0-0.1 [facility] Comment on above: Performed By: #### C BC #### [facility] [address] [address] [address] Josafat Love Basophils/100 WBC (Bld) 0.4 % Normal 0.2-2.0 [facility] Comment on above: Performed By: #### C BC #### [facility] [address] [address] [address] Josafat Love EO # 0.0 103/ul Normal 0.0-0.7 [facility] Comment on above: Performed By: #### C BC #### [facility] [address] [place] [address] Dr. Josafat Love Eosinophils/100 WBC (Bld) 0.6 % Critically low 0.9-7.0 [facility] Comment on above: Performed By: #### C BC #### [facility] [address] [place] [address] Dr. Josafat Love Erythrocyte distribution width (RBC) [Ratio] 13.0 % Normal 11.0-15.0 [facility] Comment on above: Performed By: #### C BC #### [facility] [address] [place] [address] Dr. Josafat Love Hematocrit (Bld) [Volume fraction] 42.6 % Normal 36.0-48.0 [facility] Comment on above: Performed By: #### C BC #### [facility] [address] [place] [address] Dr. Josafat Love Hemoglobin (Bld) [Mass/Vol] 14.4 g/dL Normal 12.0-16.0 [facility] Comment on above: Performed By: #### C BC #### [facility] [address] [place] [address] Dr. Josafat Love IG # 0.02 10e3/ul Normal 0.00-0.03 [facility] Comment on above: Performed By: #### C BC #### [facility] [address] [place] [address] Dr. Josafat Love IG % 0.3 % Normal 0.0-0.5 [facility] Comment on above: Performed By: #### C BC #### [facility] [address] [place] [address] Dr. Josafat Love LYMPH # 0.4 103/ul Critically low 1.2-3.8 [facility] Comment on above: Performed By: #### C BC #### [facility] [address] [place] [address] Dr. Josafat Love Lymphocytes/100 WBC (Bld) 6.4 % Critically low 20.5-60.0 [facility] Comment on above: Performed By: #### C BC #### [facility] [address] [place] [address] Dr. Josafat Love MANUAL DIFF REQ NO Normal [facility] Comment on above: Performed By: #### C BC #### [facility] [address] [place] [address] Dr. Josafat Love MCH (RBC) [Entitic mass] 30.8 pg Normal 26.7-34.0 [facility] Comment on above: Performed By: #### C BC #### [facility] [address] [place] [address] Dr. Josafat Love MCHC (RBC) [Mass/Vol] 33.8 g/dL Normal 29.9-35.2 [facility] Comment on above: Performed By: #### C BC #### [facility] [address] [place] [address] Dr. Josafat Love MCV (RBC) [Entitic vol] 91.2 fL Normal 81.0-99.0 [facility] Comment on above: Performed By: #### C BC #### [facility] [address] [place] [address] Dr. Josafat Love MONO # 0.5 103/ul Normal 0.3-0.8 [facility] Comment on above: Performed By: #### C BC #### [facility] [address] [place] [address] Dr. Josafat Love Monocytes/100 WBC (Bld) 7.9 % Normal 1.7-12.0 [facility] Comment on above: Performed By: #### C BC #### [facility] [address] [place] [address] Dr. Josafat Love NEUT # 5.7 103/ul Normal 1.4-6.5 [facility] Comment on above: Performed By: #### C BC #### [facility] [address] [address] [address] Josafat Love Neutrophils/100 WBC (Bld) 84.4 % Critically high 43.0-75.0 [facility] Comment on above: Performed By: #### C BC #### [facility] [address] [address] [address] Josafat Love Platelet mean volume (Bld) [Entitic vol] 8.5 fL Critically low 9.5-13.5 [facility] Comment on above: Performed By: #### C BC #### [facility] [address] [address] [address] Josafat Love PLT 242 103/ul Normal 150-450 [facility] Comment on above: Performed By: #### C BC #### [facility] [address] [address] [address] Josafat Love RBC 4.67 106/ul Normal 4.20-5.40 [facility] Comment on above: Performed By: #### C BC #### [facility] [address] [address] [address] Josafat Love WBC 6.7 103/ul Normal 4.0-11.0 [facility] Comment on above: Performed By: #### C BC #### [facility] [address] [id number] Josafat Love CULTURE BLOODon 01-13-2022 Microscopic examination of blood, culture Culture Observations: NO GROWTH AT 5 DAYS. Normal [facility] Comment on above: Performed By: #### B LDCX1 ####[facility] [address] [id number] Josafat Love Covid-19 PCR (CVDTBH)on SARS-CoV-2 (COVID-19) RNA JEET+probe Ql (Unsp spec) Detected Critically abnormal NOT DETECTED [facility] Comment on above: Result Comment: This test is not yet approved or cleared by the [place] FDA. When there are no FDA-approved or cleared tests available, and other criteria are met, FDA can make tests available under an emergency access mechanism called an Emergency Use Authorization (EUA). The EUA for this test is supported by the [place] of Health and Human Service's declaration that circumstances exist to justify the emergency use of in vitro diagnostics for the detection and/or diagnosis of the virus that causes COVID-19. This EUA will remain in effect for the duration of the COVID-19 declaration justifying emergency of IVDs, unless it is terminated or revoked by the FDA (after which the test may no longer be used). Performed By: #### C VDTB #### [facility] [address] [place] [address] Dr. Josafat Love INFLUENZA A AND B AGon 01-13 [facility] Normal [facility] Comment on above: Result Comment: Nega tive for Flu A protein angiten. Infection due to Flu A cannot be ruled out. Flu A angiten in the sample may be below the detection limit of the test. Performed By: #### I NFLUAB #### [facility] [address] [place] [address] Dr. Josafat Love INFLUBNEG SEE BELOW Normal [facility] Comment on above: Result Comment: Nega tive for Flu B protein antigen. Infection due to Flu B cannot be ruled out. Flu B antigen in the sample may be below the detection limit of the test. Performed By: #### I NFLUAB #### [facility] [address] [place] [address] Dr. Josafat Love INFLUENZA A AG Negative Normal NEGATIVE SEE COMMENT [facility] Comment on above: Performed By: #### I NFLUAB #### [facility] [address] [place] [address] Dr. Josafat Love INFLUENZA B AG Negative Normal NEGATIVE SEE COMMENT [facility] Comment on above: Performed By: #### I NFLUAB #### [facility] [address] [place] [address] Dr. Josafat Love INTERNAL CONTROLS Within Normal Limits Normal Wi thin Normal Limits [facility] Comment on above: Performed By: #### I NFLUAB #### [facility] [address] [place] [address] Dr. Josafat Love LACTATE/LACTIC ACIDon 2021 Lactate [Moles/Vol] 0.8 mmol/L Normal 0.4-1.9 [facility] Comment on above: Performed By: #### L ACT ####[facility] [address] [address] Josafat Love PROF 14(COMP METB)on 022 Albumin [Mass/Vol] 3.9 g/dL Normal 3.4-5.0 [facility] Comment on above: Performed By: #### C MP #### [facility] [address] [address] [address] Josafat Love Albumin/Globulin [Mass ratio] 1.2 {ratio} Normal [facility] Comment on above: Performed By: #### C MP #### [facility] [address] [place] [address] Dr. Josafat Love ALP [Catalytic activity/Vol] 80 U/L Normal 46-116 [facility] Comment on above: Performed By: #### C MP #### [facility] [address] [address] [address] Josafat Love ALT [Catalytic activity/Vol] 33 U/L Normal 14-59 [facility] Comment on above: Performed By: #### C MP #### [facility] [address] [place] [address] Dr. Josafat Love Anion gap [Moles/Vol] 14.0 mmol/L Normal [facility] Comment on above: Performed By: #### C MP #### [facility] [address] [address] [address] Josafat Love AST [Catalytic activity/Vol] 15 U/L Normal 15-37 [facility] Comment on above: Performed By: #### C MP #### [facility] [address] [place] [address] Dr. Josafat Love Bilirubin [Mass/Vol] 0.3 mg/dL Normal 0.2-1.0 [facility] Comment on above: Performed By: #### C MP #### [facility] [address] [place] [address] Dr. Josafat Love Calcium [Mass/Vol] 9.0 mg/dL Normal 8.5-10.1 [facility] Comment on above: Performed By: #### C MP #### [facility] [address] [address] [address] Josafat Love Chloride [Moles/Vol] 105 mmol/L Normal 98-107 [facility] Comment on above: Performed By: #### C MP #### [facility] [address] [address] [address] Josafat Love CO2 [Moles/Vol] 23.0 mmol/L Normal 21.0-32.0 [facility] Comment on above: Performed By: #### C MP #### [facility] [address] [place] [address] Dr. Josafat Love Creatinine [Mass/Vol] 0.98 mg/dL Normal 0.55-1.02 [facility] Comment on above: Performed By: #### C MP #### [facility] [address] [place] [address] Dr. Josafat Love EGFR-AF ESTONIAN >60 Normal >=60 [facility] Comment on above: Performed By: #### C MP #### [facility] [address] [place] [address] Dr. Josafat Love EGFR-NON AF ESTONIAN 59 mL/min/1.73m2 Critically low >=60 [facility] Comment on above: Performed By: #### C MP #### [facility] [address] [place] [address] Dr. Josafat Love Globulin (S) [Mass/Vol] 3.3 g/dL Normal [facility] Comment on above: Performed By: #### C MP #### [facility] [address] [address] [address] Josafat Love Glucose [Mass/Vol] 109 mg/dL Critically high 74-106 [facility] Comment on above: Performed By: #### C MP #### [facility] [address] [place] [address] Dr. Josafat Love Potassium [Moles/Vol] 4.0 mmol/L Normal 3.5-5.1 [facility] Comment on above: Performed By: #### C MP #### [facility] [address] [address] [address] Josafat Love Protein [Mass/Vol] 7.2 g/dL Normal 6.4-8.2 [facility] Comment on above: Performed By: #### C MP #### [facility] [address] [address] [address] Josafat Love Sodium [Moles/Vol] 138 mmol/L Normal 136-145 [facility] Comment on above: Performed By: #### C MP #### [facility] [address] [address] [address] Josafat Love Urea nitrogen [Mass/Vol] 16.0 mg/dL Normal 7.0-18.0 [facility] Comment on above: Performed By: #### C MP #### [facility] [address] [address] [address] Josafat Love Urea nitrogen/Creatinine [Mass ratio] 16.3 mg/mg Normal [facility] Comment on above: Performed By: #### C MP #### [facility] [address] [address] [address] Josafat Love Q - LXWGK-3-SVTSNYWMUBIhn WGNGZ-2-GNGCLGUSOTA QN 156 mg/dL Normal 83-199 [facility] [employer] General Manager Comment on above: Order Comment: [facility] performed at: [employer] [facility], [address] [place] [address], [address] [place] [address], [address], Manufacturing Engineering Professor: Sal Rosenberg MD [facility] Collection Date/Time: [id number] [facility] Results Received Date/Time: [id number] [facility] Reported Date/Time: [id number] Performed By: #### 6 [id number], 20330, [id number], 425X #### [facility] Default [address] [place] [address] Q - ASPERGILLUS ABon 021 ASPERGILLUS FLAVUS Negative Normal Negative [facility] Retail General Manager Comment on above: Order Comment: [facility] performed at: [facility], [address], [place], [place], , Manufacturing Engineering Professor: Silverio Hall M.D.,PhD [facility] Collection Date/Time: [facility] Results Received Date/Time: [facility] Reported Date/Time: Performed By: #### 6 7710E, , [id number], 425X #### [facility] [address] [place] [address] ASPERGILLUS FUMIGATUS Negative Normal Negative [facility] Comment on above: Order Comment: [facility] performed at: [facility], [address], [place], [place], , Manufacturing Engineering Professor: Silverio Hall M.D.,PhD [facility] Collection Date/Time: [facility] Results Received Date/Time: [facility] Reported Date/Time: Result Comment: Inte rpretive Criteria: Negative: Antibody not detected Positive: Antibody detected A positive result is represented by 1 or more precipitin bands, and may indicate fungus ball, allergic bronchopulmonary aspergillosis (FRAN) or invasive aspergillosis. Generally, the appearance of 3-4 bands indicates either fungus ball or FRAN. Performed By: #### 6 7710E, , 53355K, 425X #### [facility] [address] [place] [address] ASPERGILLUS NIGER Negative Normal Negative [facility] Comment on above: Order Comment: [facility] performed at: [facility], [address], [place], [place], , Manufacturing Engineering Professor: Silverio Hall M.D.,PhD [facility] Collection Date/Time: [facility] Results Received Date/Time: [facility] Reported Date/Time: Performed By: #### 6 7710E, 89988, 86275H, 425X #### [facility] [address] [place] [address] Q - EOSINOPHIL COUNTon 07-12 EOSABS 150 cells/uL Normal 15-500 [facility] Comment on above: Order Comment: [facility] performed at: [employer] [facility], [address] [facility], [address] [place] [address], [address] [place] [address], Manufacturing Engineering Professor: Sal Rosenberg MD [facility] Collection Date/Time: [facility] Results Received Date/Time: [id number] [facility] Reported Date/Time: Performed By: #### 6 7710E, 86099, 95325I, 425X #### [facility] Default [address] [place] [address] Eosinophils/100 WBC (Bld) 2.5 % Normal [facility] Comment on above: Order Comment: [facility] performed at: [employer] [facility], [address] [facility], [address] [place] [address], [address] [place] [address], Manufacturing Engineering Professor: Sal Rosenberg MD [facility] Date/Time: [facility] Results Received Date/Time: [id number] [facility] Reported Date/Time: Performed By: #### 6 7710E, , 68382K, 425X #### [facility] Default [address] [place] [address] WBC (Bld) [#/Vol] 6.0 10*3/uL Normal 3.8-10.8 [facility] Comment on above: Order Comment: [facility] performed at: [employer] [facility], [address] [facility], [address] [place] [address], [address] [place] [address], Manufacturing Engineering Professor: Sal Rosenberg MD [facility] Date/Time: [id number] [facility] Results Received Date/Time: [id number] [facility] Reported Date/Time: Performed By: #### 6 7710E, , [id number], 425X #### [facility] Default [address] [place] [address] Q - IGE,SERUMon 07-12-2021 IMMUNOGLOBULIN E 16 kU/L Normal [facility] Comment on above: Order Comment: [facility] performed at: [facility], [address], [address] [facility], [place], [address], Manufacturing Engineering Professor: Sal Rosenberg MD [facility] Date/Time: [id number] [facility] Results Received Date/Time: [id number] [facility] Reported Date/Time: [id number] Performed By: #### 6 7710E, 59599, 84690L, 425X #### [facility] Default [address] [place] [address] Vital Signs Date Time Vital Sign Value Performing Clinician Facility 10-04-2022 09:15-0500 Body height 153.67 cm Magdalena Khanault Other [facility] Other 10-04-2022 09:15-0500 Body mass index (BMI) [Ratio] 32.65 kg/m2 Magdalena Charissa Other [facility] Other 10-04-2022 09:15-0500 Body temperature 97.8 [degF] Magdalena Khanault Other [facility] [facility] Other 10-04-2022 09:15-0500 Body weight 77.11 kg Magdalena Khanault Other [facility] Other 10-04-2022 09:15-0500 Respiratory rate 18 /min Magdalena Charissa Other [facility] Other 10-04-2022 09:15-0500 SaO2% (BldA) [Mass fraction] 95 % Magdalena Charissa Other [facility] Other 04-08-2022 19:10-0400 Body height 153.67 cm Ale Victoria Other [facility] Other 04-08-2022 19:10-0400 Body mass index (BMI) [Ratio] 34.38 kg/m2 Ale Victoria Other [facility] Other 04-08-2022 19:10-0400 Body temperature 97.8 [degF] Ale Victoria Other [facility] Other 04-08-2022 19:10-0400 Body weight 81.19 kg Ale Victoria Other [facility] Other 04-08-2022 19:10-0400 Diastolic blood pressure 77 mm[Hg] Ale Victoria Other [facility] Other 04-08-2022 19:10-0400 Respiratory rate 18 /min Ale Victoria Other [facility] Other 04-08-2022 19:10-0400 SaO2% (BldA) [Mass fraction] 96 % Ale Victoria Other [facility] Other 04-08-2022 19:10-0400 Systolic blood pressure 120 mm[Hg] Ale Victoria Other [facility] Other Encounters Encounter Date Encounter Type Care Provider Facility Start: 05-14-2024 End: 05-14-2024 ambulatory LUCI AICHHOLZ Not Available Start: 04-07-2024 End: 04-08-2024 Emergency department patient visit ALEC BASS [facility] Start: 03-07-2024 End: 03-07-2024 ambulatory LUCI AICHHOLZ Not Available Start: 02-28-2024 End: 02-29-2024 Emergency department patient visit SONAL JIM [facility] Start: 12-06-2023 End: 12-06-2023 ambulatory ZANDRA BAI Not Available Start: 09-14-2023 Telephone encounter Zandra cyr DO Work Phone: [facility] Start: 10-12-2022 End: 10-12-2022 ambulatory LEGAL SUPPORT SPECIALIST LUCI GLORIA Facility:[facility] Start: 10-04-2022 End: 10-04-2022 ambulatory Magdalena Carrington Other [facility] Other Start: 10-04-2022 Office outpatient visit 15 minutes Magdalena Khanault [facility] Start: 08-01-2022 End: 08-01-2022 ambulatory LEGAL SUPPORT SPECIALIST LUCI AICPRATIMAZ Facility:[facility] Start: 05-16-2022 End: 05-17-2022 ambulatory LEGAL SUPPORT SPECIALIST LUCI AICPRATIMAZ Facility:[facility] Start: 04-19-2022 End: 04-20-2022 ambulatory LEGAL SUPPORT SPECIALIST LUCI ELENAZ Facility:[facility] Start: 04-11-2022 End: 04-11-2022 ambulatory LEGAL SUPPORT SPECIALIST LUCI GLORIA Facility:[facility]1 Start: 04-08-2022 End: 04-08-2022 ambulatory Ale Victoria Other [facility] ([facility] [employer]) Other Start: 04-08-2022 Office outpatient visit 15 minutes Ale Victoria [facility] Start: 01-13-2022 End: 01-14-2022 ambulatory LEGAL SUPPORT SPECIALIST LUCI AICHHELADIOZ Facility:[facility] Plan of Treatment Date Care Activity Detail Author Start: 04-07-2023 Influenza vaccination Influenza Vacc ine (#1) [facility] Start: 2005 Screening for malign ant neoplasm of breast Mammogram [facility] Start: 11-24-1995 Screening for malign ant neoplasm of cervix [facility] Start: 1986 Screening for malign ant neoplasm of cervix Pap Smear [facility] Start: 1965 Screening for malign ant neoplasm of colon [facility] Immunizations Immunization Date Immunization Notes Care Provider Philipp jacobsen 06-20-2022 influenza virus vacc ine, unspecified formulation Zandra Bai DO Work Phone: [facility] Payers Date Payer Category Payer Medicare [id number] 2022 Medicaid [employer] [place] [id number] 2022-Present [address] [place] [address] [id number] 1965 Unknown [id number] 2.16.840.1.726970.3.579.2.593 1965 Unknown [id number] 2.16.840.1.566058.3.579.2.593 1965 Unknown [id number] 2.16.840.1.287630.3.579.2.593 1965 Unknown [id number] 2.16.840.1.655512.3.579.2.593 1965 Unknown [id number] 2.16.840.1.521097.3.579.2.593 1965 Unknown [id number] 2.16.840.1.135795.3.579.2.593 1965 Unknown [id number] 2.16.840.1.252664.3.579.2.1286 1965 Unknown [id number] 2.16.840.1.079809.3.579.2.1286 1965 Unknown [id number] 2.16.840.1.503628.3.579.2.128 1965 Unknown [id number] 2.16.840.1.717839.3.579.2.128 1965 Unknown [id number] 2.16.840.1.702705.3.579.2.128 1965 Unknown [id number] 2.16.840.1.242135.3.579.2.128 1965 Unknown [id number] 2.16.840.1.357919.3.579.2.1286 1965 Unknown [id number] 2.16.840.1.359224.3.579.2.1259 1965 Unknown [id number] 2.16.840.1.896641.3.579.2.1258 1965 Unknown [id number] 2.16.840.1.208667.3.579.2.9 1965 Unknown [id number] 2.16.840.1.630387.3.579.2.9 1959 Medicaid [id number] 2.16.840.1.402838.19 1959 Medicare [id number] 2.16. 840.1.821363.19 1959 Medicare [id number] Social History Date Type Detail Facility Unknown if ever smoked [facility] [employer] Other Sex Assigned At NCR [employer] [facility] [employer] Other Tobacco smoking status NHIS Tobacco smoking consumption unknown [facility] Start: 1965 Sex Assigned At Not on file [facility] Clinical Note 04-07-2024 Note Date & Type Note Facility 04-07-2024 Note XR KNEE LT 3 VWS Procedure: Left knee radiographs performed Number of views:3 History:Trauma knee pain Comparison:None Findings: There is no fracture, dislocation, effusion, or destructive lesion. Impression: No acute findings. Finalized by Fermín Porras MD on 04/07/2024 11:04 AM [facility] Telephone encounter Note 09-14-2023 Telephone Encounter - Josie Vazquez - 09/14/2023 3:12 PM EST Note Date & Type Note Facility 09-14-2023 Telephone encount er Note Patient called [facility] at 2:38pm saying her breathing machine stopped working and needs a prescription order for a new machine sent to [facility] pharmacy. Thank you [facility] Healthcare Note 09-14-2023 Telephone Encounter - Josie Vazquez - 09/14/2023 3:12 PM EST Note Date & Type Note Facility 09-14-2023 Miscellaneous Notes Formattin g of this note might be different from the original. Patient called [facility] at 2:38pm saying her breathing machine stopped working and needs a prescription order for a new machine sent to [facility]. Thank you documented in this encounter [facility] Evaluation note 10-04-2022 Note Date & Type Note Facility 10-04-2022 Evaluation note Encounter Date Diagnosis Assessment Notes Sep, Chronic obstructive pulmonary disease with acute exacerbation (ICD-10 - J44.1) Kenalog IM given in office and recommend patient to start oral antihistamine [facility] ([facility] [employer]) Other Evaluation note 04-08-2022 Note Date & Type Note Facility 04-08-2022 Evaluation note Encounter Date Diagnosis Assessment Notes Apr, Laceration of right middle finger without foreign body without damage to nail, initial encounter (ICD-10 - S61.212A) Pt's tetanus status is up to date. Wound care & lac repair done in clinic, pt tolerated well. Wound care as discussed - keep clean, dry and covered for the first 48 hours. May leave [place] after 48 hours, cover if risk of getting dirty or irritated. Pt may shower and get steri-stips wet with clean water only, thoroughly pat dry. No ointments, lotions or creams. Do not submerge in water. Steri-strips should fall off by self in 5-7 days. Pt education sheet provided on s/s of infection and steri-stip home care. RTC if s/s of infection. Apr, Other Due to infection control protocols for COVID-19 virus, direct physical contact with patient was limited to only the absolute essential needed assessments. [facility] [employer]) Other History general Narrative - Reported Note Date & Type Note Facility History general Narrative - Reported Type Medical History COPD Medical History asthma Medical History chronic bronchitis Medical History Gastroesophageal ref lux disease, esophagitis presence not specified Medical History Seasonal allergic rh initis, unspecified chronicity, unspecified trigger Medical History Obesity, unspecified classification, unspecified obesity type, unspecified whether serious comorbidity present Surgical History C section Surgical History hand surgery Surgical History Foot Surgery Hospitalization History See Above [facility] [employer]) Other Summary Purpose Family History No Family History Records FoundNo Family History Records FoundNo Family History Records FoundNo Family History Records Found Advance Directives No Advanced Directives Records FoundNo Advanced Directives Records FoundNo Advanced Directives Records FoundNo Advanced Directives Records Found Additional Source Comments INFORMATION SOURCE (unrecogn ized section and content) DATE CREATED AUTHOR 07/17/2021 [facility] dical Specialist DATE CREATED AUTHOR AUTHOR'S ORGANIZ ATION 10/14/2022 [facility] DATE CREATED AUTHOR AUTHOR'S ORGANIZ ATION 04/08/2024 [facility] DATE CREATED AUTHOR AUTHOR'S ORGANIZ ATION 05/15/2024 [facility] dical Specialists EPIC REASON FOR VISIT (unrecogniz ed section and content) FINGER LACERATION, CUT ON PI EMILY OF [place] 4PM TODAYHISTORY OF COPD; SORE THROAT, SINUS CONGESTION, EARACHE Care Teams (unrecognized sec tion and content) Safety Director Relationship Specialty Start Date End Date Saad Boyce MD PCP - General Family Medicine 02/01/23 FOR RECORDS PERTAINING TO PATIENTS WHO ARE OR HAVE BEEN ENROLLED IN A CHEMICAL DEPENDENCY/SUBSTANCEABUSE PROGRAM, SOME INFORMATION MAY BE OMITTED. This clinical summary was aggregated from multiple sources. Caution should be exercised in using it in the provision of clinical care. This summary normalizes information from multiple sources, and as a consequence, information in this document may materially change the coding, format and clinical context of patient data. In addition, data may be omitted in some cases. CLINICAL DECISIONS SHOULD BE BASED ON THE PRIMARY CLINICAL RECORDS. [facility] [employer] [facility]. provides no warranty or guarantee of the accuracy or completeness of information in this document.
--- NOTE | 2024-05-17 08:47 | US_ITS ---
The [address] [address] Patient Name: AMALIA FONTAINE MRN: [id number] date: 1965 Sex: F Assigned Patient Location: [place] Current Patient Location: Accession/Order Number: [id number] Exam Date: 05/17/2024 08:50 Report Date: 05/19/2024 04:38 At the request of: LUCI CASTRO Procedure: US right upper quadrant EXAMINATION: US right upper quadrant HISTORY: Unexplained Weight Loss, Nausea And Vomiting COMPARISON: No relevant comparison available. TECHNIQUE: Transabdominal evaluation of the right upper quadrant. FINDINGS: LIVER: 2 small hypoechoic areas within liver favoring benign cysts, largest is 1.2 cm.. Color Doppler demonstrates patent hepatic veins. PORTAL VEIN: Duplex Doppler demonstrates normal hepatopetal flow pattern with flow velocity averaging 40 cm/s. GALLBLADDER: No visible gallstones, wall thickening, or pericholecystic free fluid. Negative sonographic Muñoz's sign. BILIARY: No abnormal dilation or stones. Common bile duct diameter is within normal limits. PANCREAS: No visible mass, abnormal atrophy, or duct dilation. KIDNEY: No hydronephrosis. No visible mass or stones. Size: 9.6 x 5.1 x 4.4 cm US/US right upper quadrant IMPRESSION: 1. No abnormal or suspicious findings to account for patient's symptoms. Electronically authenticated by: TRISTIAN RAMÍREZ Date: 05/19/2024 04:38
== END 2024-05-17 08:41 | disposition home or self-care (01) ==
LOC: US 08:40
PROVIDERS: PCP Nurse Practitioner; Visit Provider Nurse Practitioner
DX: R63.4 Abnormal weight loss (principal); R11.2 Nausea with vomiting, unspecified
CPT/HCPCS: 76705

== ENCOUNTER 2024-06-12 08:20 | Outpatient (OUT) | payer MEDICARE, MEDICAID, SELFPAY ==
--- NOTE | 2024-06-12 08:20 | NM_ITS ---
The [address] [address] Patient Name: AMALIA FONTAINE MRN: [id number] date: 1965 Sex: F Assigned Patient Location: [place] Current Patient Location: [place] Accession/Order Number: [id number] Exam Date: 06/12/2024 08:20 Report Date: 06/12/2024 14:18 At the request of: LUCI CASTRO Procedure: RI hepatobiliary w pharm EXAMINATION: RI hepatobiliary w pharm HISTORY: NAUSEA AND VOMITING COMPARISON: No relevant comparison available. TECHNIQUE: Radionuclide hepatobiliary imaging was performed after intravenous injection of 4.6 mCi Tc-99m mebrofenin with sequential acquisitions every 1 minute for one hour. Hepatobiliary imaging with gallbladder ejection fraction analysis was then performed with sequential imaging every 1 minute for 60 minutes after the patient drank 8 ounces of ensure. FINDINGS: LIVER: Normal, prompt and uniform radiotracer uptake and clearing. BILIARY DUCTS: Normal radioisotopic biliary excretion. GALLBLADDER: Normal with no evidence of cystic duct obstruction. INTESTINE: Normal with no evidence of common biliary ductal obstruction. EJECTION FRACTION: 33 % within 60 minutes. (Normal EF > 38%). OTHER: Negative. RI/RI hepatobiliary w pharm IMPRESSION: Patent biliary tree with no obstruction Biliary dyskinesia with low gallbladder ejection fraction of 33% Electronically authenticated by: CANDI CHAMBERS Date: 06/12/2024 14:18
--- OUTSIDE RECORDS SUMMARY | 2024-06-12 08:32 | XMS_ITS | CCD ---
Author Organization [facility] CliniSyhi Care Team Providers Care Carbon Brush Maker Name Role Phone Ale Victoria Unavailable AICHHOLZ, LASTER HAND VIRIDIANA Primary Care Unavailable MARKER ., DR TUCKER Admitting Unavailable MARKER ., DR TUCKER Attending Unavailable MARKER ., DR TUCKER Consulting Unavailable TRISTIAN GASPAR Consulting Unavailable AICHHOLZ, LASTER HAND VIRIDIANA Admitting Unavailable AICHHOLZ, LASTER HAND VIRIDIANA Attending Unavailable AICHHOLZ, LASTER HAND VIRIDIANA Primary Care Unavailable AICHHOLZ, LASTER HAND VIRIDIANA Consulting Unavailable AICHHOLZ, LASTER HAND VIRIDIANA Admitting Unavailable AICHHOLZ, LASTER HAND VIRIDIANA Attending Unavailable AICHHOLZ, LASTER HAND VIRIDIANA Primary Care Unavailable TRISH, DR CANDI Ramirez Consulting Unavailable AICHHOLZ, LASTER HAND VIRIDIANA Consulting Unavailable AICHHOLZ, LASTER HAND VIRIDIANA Primary Care Unavailable JAMES .TENZIN Admitting Unavailable JAMES ., TENZIN Attending Unavailable JAMES Spivey, TENZIN Consulting Unavailable CANDI LANGFORD Consulting Unavailable AICHHOLZ, LASTER HAND VIRIDIANA Primary Care Unavailable JOSHUA ., DR NOE Admitting Unavailable HAY ., DR NOE Attending Unavailable HAY ., DR NOE Consulting Unavailable AICHHOLZ, LASTER HAND VIRIDIANA Primary Care Unavailable HAY ., DR NOE Admitting Unavailable HAY ., DR NOE Attending Unavailable KOLTON .NEGIN Consulting UnavailLOWELL De Santiago Consulting Unavailable Magdalena Carrington Unavailable Saad Boyce MD Primary Care Provider [phone] ZANDRA BAI Attending Unavailable ZANDRA BAI Referring Unavailable AICHHOLZ, VIRIDIANA Attending Unavailable AICHHOLZ, VIRIDIANA Attending Unavailable Saad Boyce MD Primary Care Provider [phone] Aichholz STOCK TRACER, Viridiana Unavailable AICHHOLZ, VIRIDIANA J Primary Care Unavailable SONAL JIM Attending Unavailable SONAL JIM Attending Unavailable SONAL JIM Referring Unavailable VIRIDIANA MARK Primary Care Unavailable VIRIDIANA MARK Primary Care Unavailable ALEC BLAKE Attending Unavailable ALEC BLAKE Attending Unavailable ALEC BLAKE Referring Unavailable VIRIDIANA MARK Primary Care Unavailable VIRIDIANA MARK Primary Care Unavailable Allergies Allergy Classification Reported Allergen(s) Allergy Type Date of Onset Reaction(s) Facility (7 sources) Theophylline; Translations: [THEOPHYLLINE] Drug Allergy 4 Unknown [facility] Work Phone: (1 source) Theophylline Drug Allergy [facility] Repository (4 sources) Acetaminophen / oxyCODONE Drug Allergy 4 Other, GI intolerance, Dizziness [facility] Medications Current Medications Medication Drug Class(es) Dates Sig (Normalized) Sig (Original) acetaminophen 300 mg / codeine phosphate 30 mg oral tablet (3 sources) Opioid Agonist Start: 03-04-2024 End: 05-14-2024 acetaminophen-codei ne (Tylenol w/ Codeine #3) 300-30 MG tablet TAKE 1 TABLET BY MOUTH EVERY 6 HOURS NEEDED FOR PAIN MAX DAILY DOSE OF FOUR TABLETS 03/04/2024 05/14/2024 Discontinued albuterol 0.83 mg/ml inhalation solution (12 sources) beta2-Adrenergic Agonist Start: 12-06-2023 albuterol (2.5 MG/3ML) 0.083% nebulizer solution Indications: Chronic obstructive pulmonary disease, unspecified COPD type (CMS/HCC) Take 3 mL (2.5 mg) by nebulization 4 (four) times a day as needed for wheezing or shortness of breath 225 mL 5 12/06/2023 Active Start: 12-06-2023 End: 12-05-2024 take 2 puff(s) by inhalation every four hours for wheezing albuterol HFA (Ventolin HFA) 90 mcg/act inhaler Indications: Chronic obstructive pulmonary disease, unspecified COPD type (CMS/HCC) Inhale 2 puffs every 4 (four) hours if needed for wheezing or shortness of breath 18 g 5 12/06/2023 12/05/2024 Active Ventolin HFA Act anand Albuterol Active Breztri Aerosphere (2 sources) Breztri Aerosphe re Active Budesonide / formoterol (2 sources) Corticosteroid, beta2-Adrenergic Agonist Symbicort Active 120 actuat budesonide 0.16 mg/actuat / formoterol fumarate 0.0048 mg/actuat / glycopyrrolate 0.009 mg/actuat metered dose inhaler (4 sources) Corticosteroid, beta2-Adrenergic Agonist Start: 12-06-2023 take 2 puff(s) by inhalation in the morning Tzggmxm-Eptyzizlgkv-Jlvhktiyvk (Breztri Aerosphere) 160-9-4.8 MCG/ACT aerosol Indications: Chronic obstructive pulmonary disease, unspecified COPD type (CMS/HCC) Inhale 2 puffs in the morning and 2 puffs before bedtime. 10.7 g 5 12/06/2023 Active cetirizine hydrochloride 10 mg oral tablet (1 source) Histamine-1 Receptor Antagonist Start: 10-04-2022 take 1 tablet by mouth every twenty-four hours Cetirizine HCl 10 MG 1 tablet Orally Once a day for 30 day(s) Sep, Active ibuprofen 600 mg oral tablet (3 sources) Nonsteroidal Anti-inflammatory Drug Start: 02-28-2024 End: 05-14-2024 take 1 tablet by mouth every six hours as needed ibuprofen 600 MG tablet Take 600 mg by mouth every 6 (six) hours if needed 02/28/2024 05/14/2024 Discontinued lidocaine 0.05 mg/mg medicated patch (4 sources) Antiarrhythmic, Amide Local Anesthetic Start: 02-28-2024 End: 05-14-2024 apply 1 dose transdermal route once daily lidocaine (Lidoderm) 5 % patch Place 1 patch on the skin 1 (one) time each day at the same time 02/28/2024 05/14/2024 Discontinued Start: 02-20-2019 take 10 mL by mouth every three hours Lidocaine Viscous 2 % 10 ml swish in mouth, gargle, and spit. every 3 hrs for 2 days Feb, Not-Taking methylPREDNISolone (2 sources) Corticosteroid methylPREDNISolo ne Not-Taking nystatin 248896 unt/ml oral suspension (3 sources) Polyene Antifungal Start: 05-14-2024 End: 05-28-2024 nystatin (Mycostatin) [id number] UNIT/ML suspension Indications: Oral thrush Take 5 mL (500,000 Units) by mouth in the morning and 5 mL (500,000 Units) at noon and 5 mL (500,000 Units) in the evening and 5 mL (500,000 Units) before bedtime. Do all this for 14 days. Swish around and spit out. 280 mL 05/14/2024 05/28/2024 Active ondansetron 4 mg disintegrating oral tablet (3 sources) Serotonin-3 Receptor Antagonist Start: 05-14-2024 End: 05-24-2024 take 1 tablet by mouth every eight hours for nausea ondansetron ODT (Zofran-ODT) 4 MG disintegrating tablet Indications: Nausea and vomiting, unspecified vomiting type Take 1 tablet (4 mg) by mouth every 8 (eight) hours if needed for vomiting or nausea for up to 10 days 30 tablet 05/14/2024 05/24/2024 Active pantoprazole 40 mg delayed release oral tablet (3 sources) Proton Pump Inhibitor Start: 05-14-2024 End: 06-13-2024 take 1 tablet by mouth before mealtime pantoprazole (Protonix) 40 MG EC tablet Indications: Gastroesophageal reflux disease, unspecified whether esophagitis present Take 1 tablet (40 mg) by mouth in the morning. Take before meals. Do not crush, chew, or split.. 30 tablet 1 05/14/2024 06/13/2024 Active Phentermine (1 source) Sympathomimetic Amine Anorectic Adipex-P Active traZODone hydrochloride 50 mg oral tablet (4 sources) Serotonin Reuptake Inhibitor Start: 01-11-2023 traZODone (Desyrel) 50 MG tablet Take 50 mg by mouth as needed at bedtime for sleep 01/11/2023 Active Completed/Discontinued Medications Medication Drug Class(es) Dates Sig (Normalized) Sig (Original) azelastine (1 source) Histamine-1 Receptor Antagonist Azelastine HCl Not-Taking cephalexin 500 mg oral capsule (1 source) Cephalosporin Antibacterial Start: 02-20-2019 take 1 capsule by mouth every twelve hours Cephalexin 500 MG 1 capsule Orally every 12 hrs for 10 day(s) Feb, Not-Taking fluticasone (1 source) Corticosteroid Fluticasone Propionate Not-Taking naproxen 500 mg oral tablet (1 source) Nonsteroidal Anti-inflammatory Drug Start: 2016 take 1 tablet by mouth every twelve hours Naproxen 500 MG 1 tablet as needed Orally every 12 hrs Nov, Not-Taking Theophylline (1 source) Methylxanthine Theophylline ER Not-Taking triamcinolone acetonide 40 mg/ml injectable suspension (1 source) Corticosteroid Start: 10-04-2022 Kenalog-40 Sep, 40 mg Problems Active Problems Problem Classification Problem Date Documented Date Episodic/Chronic Allergic reactions (4 sources) Atopic dermatitis; Translations: [Other atopic dermatitis] Onset: 11-29-2023 11-29-2023 Chronic Asthma (8 sources) Asthma; Translations: [Unspecified asthma, uncomplicated] Onset: 05-10-2017 11-29-2023 Chronic Chronic obstructive pulmonary disease and bronchiectasis (18 sources) Chronic obstructive pulmonary disease with (acute) exacerbation; Translations: [Chronic obstructive pulmonary disease, unspecified] Onset: 05-10-2017 Resolved: 03-04-2024 Chronic E Codes: Fall (1 source) Unspecified fall, initial encounter; Translations: [Unspecified fall, initial encounter] Onset: 04-07-2024 Episodic E Codes: Fall (1 source) Fall Onset: 04-07-2024 Esophageal disorders (6 sources) Gastroesophageal reflux disease; Translations: [Gastro-esophageal reflux disease without esophagitis] Onset: 05-10-2017 11-29-2023 Chronic Headache; including migraine (3 sources) Headache; including migraine; Translations: [HEADACHE UNSPECIFIED] Onset: 01-13-2022 Miscellaneous mental health disorders (4 sources) Primary insomnia; Translations: [Primary insomnia] Onset: 11-29-2023 11-29-2023 Chronic Mycoses (5 sources) Candidiasis of mouth; Translations: [Candidal stomatitis] Onset: 05-14-2024 05-14-2024 Episodic Nausea and vomiting (7 sources) Nausea and vomiting; Translations: [Nausea with vomiting, unspecified] Onset: 05-14-2024 05-14-2024 Episodic Other aftercare (1 source) Other middle or intermediate school principal (current) drug therapy; Translations: [OTH CIGARETTE EXAMINER CURRENT DRUG THERAPY] Onset: 08-02-2022 Episodic Other lower respiratory disease (4 sources) Shortness of breath; Translations: [SHORTNESS OF BREATH] Onset: 04-11-2022 Episodic Other non-traumatic joint disorders (1 source) Pain in left knee; Translations: [Pain in left knee] Onset: 04-07-2024 Episodic Other nutritional; endocrine; and metabolic disorders (7 sources) Unexplained weight loss ; Translations: [Abnormal weight loss] Onset: 05-14-2024 05-14-2024 Episodic Other upper respiratory disease (4 sources) Allergic rhinitis; Translations: [Allergic rhinitis, unspecified] Onset: 11-29-2023 11-29-2023 Chronic Residual codes; unclassified (4 sources) Hypoxia; 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] Onset: 09-16-2021 11-29-2023 Chronic Residual codes; unclassified (4 sources) Obstructive sleep apnea syndrome; Translations: [Obstructive sleep apnea (adult) (pediatric)] Onset: 09-16-2021 11-29-2023 Chronic Respiratory failure; insufficiency; arrest (adult) (1 source) Dependence on supplemental oxygen; Translations: [DEPENDENCE ON SUPPLEMENTAL OXYGEN] Onset: 04-14-2022 Chronic Screening and history of mental health and substance abuse codes (1 source) Personal history of nicotine dependence; Translations: [PERSONAL HISTORY OF NICOTINE DEPEND] Onset: 10-14-2022 Episodic Sprains and strains (2 sources) Sprain of unspecified ligament of right ankle, initial encounter; Translations: [Strain of muscle and tendon of front wall of thorax, initial encounter] Onset: 02-28-2024 Episodic Substance-related disorders (6 sources) Tobacco dependence syndrome; Translations: [Nicotine dependence, unspecified, uncomplicated] Onset: 05-14-2024 05-14-2024 Chronic Superficial injury; contusion (1 source) Contusion of eyeball and orbital tissues, left eye, initial encounter; Translations: [Contusion of eyeball and orbital tissues, left eye, initial encounter] Onset: 04-07-2024 Episodic Unclassified (2 sources) COUGH, UNSPECIFIED; Translations: [COUGH, UNSPECIFIED] Onset: 10-14-2022 Unclassified (1 source) Ankle Injury Onset: 06-10-2024 Unclassified (1 source) PAIN RT RIBS Onset: 02-28-2024 Viral infection (1 source) COVID-19; Translations: [COVID-19] Onset: 01-16-2022 Past or Other Problems Problem Classification Problem Date Documented Da te Episodic/Chronic Anxiety disorders (8 sources) Anxiety disorder, unspecified; Translations: [Generalized anxiety disorder] Onset: 08-01-2022 Resolved: 03-07-2024 Chronic Genitourinary symptoms and ill-defined conditions (4 sources) Asymptomatic microscopic hematuria; Translations: [Asymptomatic microscopic hematuria] Onset: 11-29-2023 11-29-2023 Episodic Mood disorders (4 sources) Major depressive disorder; Translations: [Major depressive disorder, single episode, unspecified] Onset: 11-29-2023 Resolved: 03-07-2024 03-07-2024 Chronic Mood disorders (3 sources) Mood disorders Onset: 05-14-2024 05-14-2024 Nonspecific chest pain (4 sources) Chest pain, unspecified; Translations: [CHEST PAIN UNSPECIFIED] Onset: 05-16-2022 Episodic Open wounds of extremities (1 source) Laceration without foreign body of right middle finger without damage to nail, initial encounter Onset: 04-08-2022 Resolved: 04-08-2022 Episodic Other lower respiratory disease (5 sources) Rib pain; Translations: [Pleurodynia] Onset: 02-28-2024 03-07-2024 Episodic Other nutritional; endocrine; and metabolic disorders (4 sources) Body mass index 30+ - obesity; Translations: [Obesity, unspecified] Onset: 11-29-2023 Resolved: 03-07-2024 03-07-2024 Chronic Spondylosis; intervertebral disc disorders; other back problems (4 sources) Thoracic back pain; Translations: [Pain in thoracic spine] Onset: 11-29-2023 11-29-2023 Episodic Unclassified (1 source) COUGH, UNSPECIFIED; Translations: [COUGH, UNSPECIFIED] Onset: 10-12-2022 Results Test Name Value Interpretation Reference Range Facility XR ANKLE RT MIN 3 VWSon 11-0 XR ANKLE RT MIN 3 VWS XR ANKLE RT MIN 3 VWS XR ANKLE RT MIN 3 VWS HISTORY: swelling. pain. COMPARISON: none IMPRESSION: 1. No acute fracture or dislocation. Symmetric ankle mortise. Soft tissue swelling about the ankle. Finalized by Wesly Grant MD on 06/10/2024 10:50 AM [facility] XR FOOT RT MIN 3 VWSon 06-10 XR FOOT RT MIN 3 VWS XR FOOT RT MIN 3 VWS XR FOOT RT MIN 3 VWS HISTORY: pain, swelling. COMPARISON: none IMPRESSION: 1. No acute fracture or dislocation. Nonspecific linear sclerotic observation extending through the fifth metatarsal diaphysis, possibly sequelae remote injury or bone island. Finalized by Wesly Grant MD on 06/10/2024 10:51 AM Normal [facility] CT BRAIN WO CONTon CT BRAIN WO [...] Fermín Porras MD on 04/07/2024 11:01 AM Normal [facility] CT CERVICAL SPINE WO CONTon 04-07-2024 CT [...] Porras MD on 04/07/2024 11:05 AM Normal [facility] CT FACIAL BONES WO CONTon CT FACIAL [...] Porras MD on 04/07/2024 11:06 AM Normal [facility] XR RIBS RT 3 VWS W PA [...] Springer MD on 02/28/2024 10:57 PM Normal [facility] XR CHEST 2 VIEWSon XR CHEST 2 VIEWS FINDINGS: Lung volumes [...] B (Bld) [Mass/Vol] 31.0 pg/mL Normal <=900.0 [facility] Comment on above: Performed By: #### H STROPN, CMP, BNP ####[facility] [address] [place] [phone]. Josafat Ivan CBC AUTO DIFFon 10-12-2022 BASO # 0.0 103/ul Normal 0.0-0.1 [facility] Comment on above: Performed By: #### C BC ####[facility] [address] [place] [phone]. Josafat Love Basophils/100 WBC (Bld) 0.4 % Normal 0.2-2.0 [facility] Comment on above: Performed By: #### C BC ####[facility] [address] [place], [place] [address]Dr. Josafat Love EO # 0.1 103/ul Normal 0.0-0.7 [facility] Comment on above: Performed By: #### C BC ####[facility] [address] [place], [place] [address]Dr. Josafat Love Eosinophils/100 WBC (Bld) 1.3 % Normal 0.9-7.0 [facility] Comment on above: Performed By: #### C BC ####[facility] [address] [place], [place] [address]Dr. Aprilgeo Love Erythrocyte distribution width (RBC) [Ratio] 13.1 % Normal 11.0-15.0 [facility] Comment on above: Performed By: #### C BC ####[facility] [address] [place], [place] [address]Dr. Josafat Love Hematocrit (Bld) [Volume fraction] 45.0 % Normal 36.0-48.0 [facility] Comment on above: Performed By: #### C BC ####[facility] [address] [place], [place] [address]Dr. Aprilgeo Love Hemoglobin (Bld) [Mass/Vol] 15.0 g/dL Normal 12.0-16.0 [facility] Comment on above: Performed By: #### C BC ####[facility] [address] [place], [place] [address]Dr. Josafat Love IG # 0.03 10e3/ul Normal 0.00-0.03 [facility] Comment on above: Performed By: #### C BC ####[facility] [address] [place] [phone]. Aprilgeo Love IG % 0.3 % Normal 0.0-0.5 [facility] Comment on above: Performed By: #### C BC ####[facility] [address] [place] [phone]. Aprilgeo Love LYMPH # 1.9 103/ul Normal 1.2-3.8 [facility] Comment on above: Performed By: #### C BC ####[facility] [address] [place] [phone]. Aprilgeo Love Lymphocytes/100 WBC (Bld) 19.5 % Critically low 20.5-60.0 [facility] Comment on above: Performed By: #### C BC ####[facility] [address] [place] [address]Dr. Josafat Love MANUAL DIFF REQ NO Normal [facility] Comment on above: Performed By: #### C BC ####[facility] [address] [place] [phone]. Josafat Ivan MCH (RBC) [Entitic mass] 29.8 pg Normal 26.7-34.0 [facility] Comment on above: Performed By: #### C BC ####[facility] [address] [place] [phone]. Josafat Ivan MCHC (RBC) [Mass/Vol] 33.3 g/dL Normal 29.9-35.2 [facility] Comment on above: Performed By: #### C BC ####[facility] [address] [place] [phone] Aprilgeo Love MCV (RBC) [Entitic vol] 89.3 fL Normal 81.0-99.0 [facility] Comment on above: Performed By: #### C BC ####[facility] [address] [place] [phone] Love MONO # 0.5 103/ul Normal 0.3-0.8 [facility] Comment on above: Performed By: #### C BC ####[facility] [address] [place] [phone]. Josafat Love Monocytes/100 WBC (Bld) 5.3 % Normal 1.7-12.0 [facility] Comment on above: Performed By: #### C BC ####[facility] [address] [place] [phone]. Josafat Love NEUT # 7.2 103/ul Critically high 1.4-6.5 [facility] Comment on above: Performed By: #### C BC ####[facility] [address] [place] [phone]. Josafat Love Neutrophils/100 WBC (Bld) 73.2 % Normal 43.0-75.0 [facility] Comment on above: Performed By: #### C BC ####[facility] [address] [place] [address]Dr. Josafat Love Platelet mean volume (Bld) [Entitic vol] 8.9 fL Critically low 9.5-13.5 [facility] Comment on above: Performed By: #### C BC ####[facility] [address] [place] [address]Dr. Josafat Love PLT 282 103/ul Normal 150-450 [facility] Comment on above: Performed By: #### C BC ####[facility] [address] [place] [phone]. Josafat Love RBC 5.04 106/ul Normal 4.20-5.40 [facility] Comment on above: Performed By: #### C BC ####[facility] [address] [place] [phone]. Josafat Love WBC 9.9 103/ul Normal 4.0-11.0 [facility] Comment on above: Performed By: #### C BC ####[facility] [address] [place] [phone]. Josafat Love LACTATE/LACTIC ACIDon 2022 Lactate [Moles/Vol] 2.2 mmol/L Critically high 0.4-1.9 [facility] Comment on above: Performed By: #### L ACT #### [facility] [address] [address] [address] Josafat Love PH VENOUS BLOODon 10-12-2022 PCO2 VENOUS 35.3 mmHg Critically low 40.0-52.0 [facility] Comment on above: Performed By: #### P HVEN ####[facility] [address] [place] [address]DrAllyssa Love pH VENOUS 7.426 Normal 7.330-7.430 [facility] Comment on above: Performed By: #### P HVEN ####[facility] [address] [place] [address]Dr. Josafat Love PROF 14(COMP METB)on 023 Albumin [Mass/Vol] 3.8 g/dL Normal 3.4-5.0 [facility] Comment on above: Performed By: #### H STROPN, CMP, BNP ####[facility] [address] [place] [address]DrAllyssa Love Albumin/Globulin [Mass ratio] 1.2 {ratio} Normal [facility] Comment on above: Performed By: #### H STROPN, CMP, BNP ####[facility] [address] [place] [address]DrAllyssa Love ALP [Catalytic activity/Vol] 90 U/L Normal 46-116 [facility] Comment on above: Performed By: #### H STROPN, CMP, BNP ####[facility] [address] [place] [address]DrAllyssa Love ALT [Catalytic activity/Vol] 31 U/L Normal 14-59 [facility] Comment on above: Performed By: #### H STROPN, CMP, BNP ####[facility] [address] [place] [address]DrAllyssa Love Anion gap [Moles/Vol] 16.3 mmol/L Normal [facility] Comment on above: Performed By: #### H STROPN, CMP, BNP ####[facility] [address] [place] [address]Dr. Josafat Love AST [Catalytic activity/Vol] 18 U/L Normal 15-37 [facility] Comment on above: Performed By: #### H STROPN, CMP, BNP ####[facility] [address] [place] [address]Dr. Josafat Love Bilirubin [Mass/Vol] 0.3 mg/dL Normal 0.2-1.0 [facility] Comment on above: Performed By: #### H STROPN, CMP, BNP ####[facility] [address] [place] [address]Dr. Josafat Love Calcium [Mass/Vol] 9.1 mg/dL Normal 8.5-10.1 [facility] Comment on above: Performed By: #### H STROPN, CMP, BNP ####[facility] [address] [place], [place] [address]Dr. Josafat Love Chloride [Moles/Vol] 106 mmol/L Normal 98-107 [facility] Comment on above: Performed By: #### H STROPN, CMP, BNP ####[facility] [address] [place] [address]Dr. Josafat Love CO2 [Moles/Vol] 23.8 mmol/L Normal 21.0-32.0 [facility] Comment on above: Performed By: #### H STROPN, CMP, BNP ####[facility] [address] [place] [address]Dr. Josafat Love Creatinine [Mass/Vol] 1.00 mg/dL Normal 0.55-1.02 [facility] Comment on above: Performed By: #### H STROPN, CMP, BNP ####[facility] [address] [place] [address]Dr. Josafat Love EGFR-AF MOZAMBICAN >60 Normal >=60 [facility] Comment on above: Performed By: #### H STROPN, CMP, BNP ####[facility] [address] [place] [address]Dr. Josafat Ivan EGFR-NON AF MOZAMBICAN 57 mL/min/1.73m2 Critically low >=60 [facility] Comment on above: Performed By: #### H STROPN, CMP, BNP ####[facility] [address] [place] [address]Dr. Josafat Love Globulin (S) [Mass/Vol] 3.3 g/dL Normal [facility] Comment on above: Performed By: #### H STROPN, CMP, BNP ####[facility] [address] [place] [address]Dr. Josafat Love Glucose [Mass/Vol] 128 mg/dL Critically high 74-106 [facility] Comment on above: Performed By: #### H STROPN, CMP, BNP ####[facility] [address] [place], [place] [address]Dr. Josafat Love Potassium [Moles/Vol] 4.1 mmol/L Normal 3.5-5.1 [facility] Comment on above: Performed By: #### H STROPN, CMP, BNP ####[facility] [address] [place], [place] [address]Dr. Josafat Love Protein [Mass/Vol] 7.1 g/dL Normal 6.4-8.2 [facility] Comment on above: Performed By: #### H STROPN, CMP, BNP ####[facility] [address] [place], [place] [address]Dr. Josafat Love Sodium [Moles/Vol] 142 mmol/L Normal 136-145 [facility] Comment on above: Performed By: #### H STROPN, CMP, BNP ####[facility] [address] [place], [place] [address]Dr. Josafat Love Urea nitrogen [Mass/Vol] 20.0 mg/dL Critically high 7.0-18.0 [facility] Comment on above: Performed By: #### H STROPN, CMP, BNP ####[facility] [address] [place], [place] [address]Dr. Josafat Love Urea nitrogen/Creatinine [Mass ratio] 20.0 mg/mg Normal [facility] Comment on above: Performed By: #### H STROPN, CMP, BNP ####[facility] [id number] [id number]. Joasfat Love PROTIMEon 10-12-2022 INR Coag (PPP) [Relative time] {INR} Normal [facility] Comment on above: Performed By: #### P TT, PT #### [facility] [address] [address] [address] Josafat Love INR GUIDELINES SEE BELOW Normal [facility] Comment on above: Result Comment: LIZETH RED INR: 2.0 - 3.0 CONDITIONS NOT LISTED BELOW 2.5 - 3.5 FOR PROSTHETIC HEART VALVE REPLACEMENT 2.5 - 3.5 RECURRENT THROMBOSIS Performed By: #### P TT, PT #### [facility] [address] [place] [address] Dr. Josafat Love PT Coag (PPP) [Time] 9.8 s Normal 9.0-11.6 [facility] Comment on above: Performed By: #### P TT, PT #### [facility] [address] [place] [address] Dr. Josafat Love PTTon 10-12-2022 aPTT Coag (Bld) [Time] 26.9 s Normal 22.3-36.2 [facility] Comment on above: Performed By: #### P TT, PT #### [facility] [address] [place] [address] Dr. Josafat Love TROPONIN, HIGH SENSITIVITYon 10-12-2022 HSTROP <4.0 Normal 4.0-51.3 [facility] Comment on above: Result Comment: CUT- OFF POINTS HAVE BEEN ESTABLISHED BASED ON THE FOURTH UNIVERSAL DEFINITIONS OF MYOCARDIAL INFARCTION. THE UPPER REFERENCE LIMIT (URL) OF TROPONIN, DEFINED THE 99TH PERCENTILE OF cTnI DISTRIBUTION IN A REFERENCE POPULATION, HAS BEEN CONFIRMED THE DECISION THRESHOLD FOR CO DIAGNOSIS. Performed By: #### H STROPN, CMP, BNP ####[facility] [address] [id number]. Josafat Love XR CHEST 1 Von 10-12-2022 XR [...] by: LOWELL VASQUES Date: 2022-10-12 17:11 Normal [facility] STRESS/REST MULTIon 05-16 [place] STRESS/REST MULTI Patient: AMALIA JEFFERY Exam Date: 05/16/2022 : 1965 Gender:F Ordering : YA [facility] Admission #: [id number] Family : Order #: [id number] CLICK HERE TO VIEW EXAM RADIOLOGY REPORT PROCEDURE: RADIONUCLIDE IMAGING STRESS/REST MULTI COMPARISON: [place] STRESS/REST MULTI, 09/14/2017. [place] STRESS/REST MULTI, 05/19/2015. [...] Beyer MD on 05/17/2022 at 07:17 Normal [facility] XR CHEST 1 Von 04-11-2022 [...] by: CANDI LANGFORD Date: 2022-04-11 16:00 Normal [facility] XR CHEST 1 Von 01-14-2022 [...] by: TRISTIAN GASPAR Date: 2022-01-13 23:23 Normal [facility] CBC AUTO DIFFon 01-13-2022 BASO # 0.0 103/ul Normal 0.0-0.1 [facility] Comment on above: Performed By: #### C BC #### [facility] [address] [place] [address] Dr. Josafat Love Basophils/100 WBC (Bld) 0.4 % Normal 0.2-2.0 [facility] Comment on above: Performed By: #### C BC #### [facility] [address] [place] [address] Dr. Josafat Love EO # 0.0 103/ul Normal 0.0-0.7 [facility] Comment on above: Performed By: #### C BC #### [facility] [address] [place] [address] Dr. Josafat Love Eosinophils/100 WBC (Bld) 0.6 % Critically low 0.9-7.0 [facility] Comment on above: Performed By: #### C BC #### [facility] [address] [place] [address] Dr. Josafat Love Erythrocyte distribution width (RBC) [Ratio] 13.0 % Normal 11.0-15.0 [facility] Comment on above: Performed By: #### C BC #### [facility] [address] [place] [address] Dr. Josafat Love Hematocrit (Bld) [Volume fraction] 42.6 % Normal 36.0-48.0 [facility] Comment on above: Performed By: #### C BC #### [facility] [address] [place] [address] Dr. Josafat Love Hemoglobin (Bld) [Mass/Vol] 14.4 g/dL Normal 12.0-16.0 [facility] Comment on above: Performed By: #### C BC #### [facility] [address] [place] [address] Dr. Josafat Love IG # 0.02 10e3/ul Normal 0.00-0.03 [facility] Comment on above: Performed By: #### C BC #### [facility] [address] [place] [address] Dr. Josafat Love IG % 0.3 % Normal 0.0-0.5 [facility] Comment on above: Performed By: #### C BC #### [facility] [address] [place] [address] Dr. Josafat Love LYMPH # 0.4 103/ul Critically low 1.2-3.8 [facility] Comment on above: Performed By: #### C BC #### [facility] [address] [place] [address] Dr. Josafat Love Lymphocytes/100 WBC (Bld) 6.4 % Critically low 20.5-60.0 [facility] Comment on above: Performed By: #### C BC #### [facility] [address] [place] [address] Dr. Josafat Love MANUAL DIFF REQ NO Normal [facility] Comment on above: Performed By: #### C BC #### [facility] [address] [place] [address] Dr. Josafat Love MCH (RBC) [Entitic mass] 30.8 pg Normal 26.7-34.0 [facility] Comment on above: Performed By: #### C BC #### [facility] [address] [place] [address] Dr. Josafat Love MCHC (RBC) [Mass/Vol] 33.8 g/dL Normal 29.9-35.2 [facility] Comment on above: Performed By: #### C BC #### [facility] [address] [place] [address] Dr. Josafat Love MCV (RBC) [Entitic vol] 91.2 fL Normal 81.0-99.0 [facility] Comment on above: Performed By: #### C BC #### [facility] [address] [place] [address] Dr. Josafat Love MONO # 0.5 103/ul Normal 0.3-0.8 [facility] Comment on above: Performed By: #### C BC #### [facility] [address] [place] [address] Dr. Josafat Love Monocytes/100 WBC (Bld) 7.9 % Normal 1.7-12.0 [facility] Comment on above: Performed By: #### C BC #### [facility] [address] [place] [address] Dr. Josafat Love NEUT # 5.7 103/ul Normal 1.4-6.5 [facility] Comment on above: Performed By: #### C BC #### [facility] [address] [place] [address] Dr. Josafat Love Neutrophils/100 WBC (Bld) 84.4 % Critically high 43.0-75.0 [facility] Comment on above: Performed By: #### C BC #### [facility] [address] [place] [address] Dr. Josafat Love Platelet mean volume (Bld) [Entitic vol] 8.5 fL Critically low 9.5-13.5 [facility] Comment on above: Performed By: #### C BC #### [facility] [address] [address] [address] Josafat Love PLT 242 103/ul Normal 150-450 [facility] Comment on above: Performed By: #### C BC #### [facility] [address] [address] [address] Josafat Love RBC 4.67 106/ul Normal 4.20-5.40 [facility] Comment on above: Performed By: #### C BC #### [facility] [address] [address] [address] Josafat Love WBC 6.7 103/ul Normal 4.0-11.0 [facility] Comment on above: Performed By: #### C BC #### [facility] [address] [address] [address] Josafat Love CULTURE BLOODon 01-13-2022 Microscopic examination of blood, culture Culture Observations: NO GROWTH AT 5 DAYS. Normal [facility] Comment on above: Performed By: #### B [id number] ####[facility] [address] [id number]. Josafat Love Covid-19 PCR (CVDTB)on SARS-CoV-2 (COVID-19) RNA JEET+probe Ql (Unsp spec) Detected Critically abnormal NOT DETECTED [facility] Comment on above: Result Comment: This test is not yet approved or cleared by the [place] FDA. When there are no FDA-approved or cleared tests available, and other criteria are met, FDA can make tests available under an emergency access mechanism called an Emergency Use Authorization (EUA). The EUA for this test is supported by the [place] of Health and Human Service's declaration that [...] longer be used). Performed By: #### C VDTBH #### [facility] [address] [place] [address] Dr. Josafat Love INFLUENZA A AND B AGon 01-13 INFLUANE SEE BELOW Normal [facility] Comment on above: Result Comment: Nega tive for Flu A protein angiten. Infection due to Flu A cannot be ruled out. Flu A angiten in the sample may be below the detection limit of the test. Performed By: #### I NFLUAB #### [facility] [address] [place] [address] Dr. Josafat [facility] SEE BELOW Normal [facility] Comment on above: Result Comment: Nega tive for Flu B protein antigen. Infection due to Flu B cannot be ruled out. Flu B antigen in the sample may be below the detection limit of the test. Performed By: #### I NFLUAB #### [facility] [address] [place] [address] Dr. Josafat Love INFLUENZA A AG Negative Normal NEGATIVE SEE COMMENT [facility] Comment on above: Performed By: #### I NFLUAB #### [facility] [address] [place] [address] Dr. Josafat Love INFLUENZA B AG Negative Normal NEGATIVE SEE COMMENT [facility] Comment on above: Performed By: #### I NFLUAB #### [facility] [address] [place] [address] Dr. Josafat Love INTERNAL CONTROLS Within Normal Limits Normal Wi thin Normal Limits [facility] Comment on above: Performed By: #### I NFLUAB #### [facility] [address] [place] [address] Dr. Josafat Love LACTATE/LACTIC ACIDon 2021 Lactate [Moles/Vol] 0.8 mmol/L Normal 0.4-1.9 [facility] Comment on above: Performed By: #### L ACT ####[facility] [address] [address]. Josafat Love PROF 14(COMP METB)on 022 Albumin [Mass/Vol] 3.9 g/dL Normal 3.4-5.0 [facility] Comment on above: Performed By: #### C MP #### [facility] [address] [place] [address] Dr. Josafat Love Albumin/Globulin [Mass ratio] 1.2 {ratio} Normal [facility] Comment on above: Performed By: #### C MP #### [facility] [address] [place] [address] Dr. Josafat Love ALP [Catalytic activity/Vol] 80 U/L Normal 46-116 [facility] Comment on above: Performed By: #### C MP #### [facility] [address] [place] [address] Dr. Josafat Love ALT [Catalytic activity/Vol] 33 U/L Normal 14-59 [facility] Comment on above: Performed By: #### C MP #### [facility] [address] [place] [address] Dr. Josafat Love Anion gap [Moles/Vol] 14.0 mmol/L Normal [facility] Comment on above: Performed By: #### C MP #### [facility] [address] [place] [address] Dr. Josafat Love AST [Catalytic activity/Vol] 15 U/L Normal 15-37 [facility] Comment on above: Performed By: #### C MP #### [facility] [address] [place] [address] Dr. Josafat Love Bilirubin [Mass/Vol] 0.3 mg/dL Normal 0.2-1.0 [facility] Comment on above: Performed By: #### C MP #### [facility] [address] [place] [address] Dr. Josafat Love Calcium [Mass/Vol] 9.0 mg/dL Normal 8.5-10.1 [facility] Comment on above: Performed By: #### C MP #### [facility] [address] [place] [address] Dr. Josafat Love Chloride [Moles/Vol] 105 mmol/L Normal 98-107 [facility] Comment on above: Performed By: #### C MP #### [facility] [address] [address] [address] Josafat Love CO2 [Moles/Vol] 23.0 mmol/L Normal 21.0-32.0 [facility] Comment on above: Performed By: #### C MP #### [facility] [address] [address] [address] Josafat Love Creatinine [Mass/Vol] 0.98 mg/dL Normal 0.55-1.02 [facility] Comment on above: Performed By: #### C MP #### [facility] [address] [address] [address] Josafat Love EGFR-AF MOZAMBICAN >60 Normal >=60 [facility] Comment on above: Performed By: #### C MP #### [facility] [address] [place] [address] Dr. Josafat Love EGFR-NON AF MOZAMBICAN 59 mL/min/1.73m2 Critically low >=60 [facility] Comment on above: Performed By: #### C MP #### [facility] [address] [place] [address] Dr. Josafat Love Globulin (S) [Mass/Vol] 3.3 g/dL Normal [facility] Comment on above: Performed By: #### C MP #### [facility] [address] [place] [address] Dr. Josafat Love Glucose [Mass/Vol] 109 mg/dL Critically high 74-106 [facility] Comment on above: Performed By: #### C MP #### [facility] [address] [place] [address] Dr. Josafat Love Potassium [Moles/Vol] 4.0 mmol/L Normal 3.5-5.1 [facility] Comment on above: Performed By: #### C MP #### [facility] [address] [place] [address] Dr. Josafat Love Protein [Mass/Vol] 7.2 g/dL Normal 6.4-8.2 [facility] Comment on above: Performed By: #### C MP #### [facility] [address] [place], [place] [address] Dr. Josafat Love Sodium [Moles/Vol] 138 mmol/L Normal 136-145 [facility] Comment on above: Performed By: #### C MP #### [facility] [address] [place], [place] [address] Dr. Josafat Love Urea nitrogen [Mass/Vol] 16.0 mg/dL Normal 7.0-18.0 [facility] Comment on above: Performed By: #### C MP #### [facility] [address] [address] [address] Josafat Love Urea nitrogen/Creatinine [Mass ratio] 16.3 mg/mg Normal [facility] Comment on above: Performed By: #### C MP #### [facility] [address] [address] [address] Josafat Love Q - [id number] QN 156 mg/dL Normal 83-199 [facility] Chief Nurse Executive Comment on above: Order Comment: [facility] performed at: [facility], [employer] [facility], [address] [facility], [address] [place] [address], [place], [address], Anesthesiologists' Assistant: Sal Rosenberg MD [facility] Collection Date/Time: [facility] Results Received Date/Time: [facility] Reported Date/Time: Performed By: #### 6 [id number], [id number], [id number], 425X #### [facility] Default [address] [place] [address] Q - ASPERGILLUS ABon 021 ASPERGILLUS FLAVUS Negative Normal Negative [facility] Chief Nurse Executive Comment on above: Order Comment: [facility] performed at: [facility], [employer], [address], [place], [place], , Anesthesiologists' Assistant: Silverio Hall M.D.,PhD [facility] Date/Time: [facility] Results Received Date/Time: [facility] Reported Date/Time: Performed By: #### 6 [id number], 74911, 66901S, 425X #### [facility] [address] [place] [address] ASPERGILLUS FUMIGATUS Negative Normal Negative [facility] Comment on above: Order Comment: [facility] performed at: [employer], [address], [place], [place], , Anesthesiologists' Assistant: Silverio Hall M.D.,PhD [facility] Date/Time: [facility] [...] FRAN. Performed By: #### 6 [id number], , [id number], 425X #### [facility] [address] [place] [address] ASPERGILLUS NIGER Negative Normal Negative [facility] [place] Comment on above: Order Comment: [facility] performed at: [facility], [address] [place], [place], , Anesthesiologists' Assistant: Silverio Hall M.D.,PhD [facility] Date/Time: [facility] Results Received Date/Time: [facility] Reported Date/Time: Performed By: #### 6 [id number], , [id number], 425X #### [facility] [address] [place] [address] Q - EOSINOPHIL COUNTon 07-12 EOSABS 150 cells/uL Normal 15-500 [facility] Comment on above: Order Comment: [facility] performed at: [facility], [employer] [facility], [address] [facility], [address] [facility], [place], [address], Anesthesiologists' Assistant: Sal Rosenberg MD [facility] Date/Time: [facility] Results Received Date/Time: [facility] Reported Date/Time: Performed By: #### 6 [id number], , [id number], 425X #### [facility] [address] [place] [address] Eosinophils/100 WBC (Bld) 2.5 % Normal [facility] Comment on above: Order Comment: [facility] performed at: [employer], [employer] [facility], [address] [facility], [address] [place] [address], [address] [place] [address], Anesthesiologists' Assistant: Sal Rosenberg MD [facility] Date/Time: [facility] Results Received Date/Time: [facility] Reported Date/Time: Performed By: #### 6 [id number], , 17755E, 425X #### [facility] [address] [place] [address] WBC (Bld) [#/Vol] 6.0 10*3/uL Normal 3.8-10.8 [facility] Comment on above: Order Comment: [facility] performed at: [employer] [facility], [address] [place] [address], [address] [place] [address], [address] [place] [address], Anesthesiologists' Assistant: Sal Rosenberg MD [facility] Date/Time: [facility] Results Received Date/Time: [facility] Reported Date/Time: Performed By: #### 6 [id number], , [id number], 425X #### [facility] [address] [place] [address] Q - IGE,SERUMon 07-12-2021 IMMUNOGLOBULIN E 16 kU/L Normal [facility] Comment on above: Order Comment: [facility] performed at: [employer] [facility], [address] [place] [address], [address] [place] [address], [address] [place] [address], Anesthesiologists' Assistant: Sal Rosenberg MD [facility] Date/Time: [facility] Results Received Date/Time: [facility] Reported Date/Time: Performed By: #### 6 [id number], 62912, 55391O, 425X #### [facility] Default [address] [place] [address] Vital Signs Date Time Vital Sign Value Performing Clinician Facility 05-14-2024 10:34-0400 Body height 154.9 cm Viridiana Mark STOCK TRACER Work Phone: [facility] 05-14-2024 10:34-0400 Body mass index (BMI) [Ratio] 22.94 kg/m2 Viridianaallan Estevezz STOCK TRACER Work Phone: [facility] 05-14-2024 10:34-0400 Body temperature 98.01 [degF] Viridianaallan Estevezz STOCK TRACER Work Phone: [facility] 05-14-2024 10:34-0400 Body weight 55.07 kg Viridianaallan Estevezz STOCK TRACER Work Phone: [facility] 05-14-2024 10:34-0400 Diastolic blood pressure 80 mm[Hg] Viridiana Estevezz STOCK TRACER Work Phone: [facility] 05-14-2024 10:34-0400 Heart rate 77 /min Viridianaallan Estevezz STOCK TRACER Work Phone: [facility] 05-14-2024 10:34-0400 Respiratory rate 19 /min Viridianaallan Estevezz STOCK TRACER Work Phone: [facility] 05-14-2024 10:34-0400 SaO2% (BldA) [Mass fraction] 99 % Viridianaallan Estevezz STOCK TRACER Work Phone: [facility] 05-14-2024 10:34-0400 Systolic blood pressure 120 mm[Hg] Viridiana Tammiholz STOCK TRACER Work Phone: [facility] 10-04-2022 09:15-0500 Body height 153.67 cm Magdalena Carrington Other [facility] Other 10-04-2022 09:15-0500 Body mass index (BMI) [Ratio] 32.65 kg/m2 Magdalena Charissa Other [facility] Other 10-04-2022 09:15-0500 Body temperature 97.8 [degF] Magdalena Carrington Other [facility] Other 10-04-2022 09:15-0500 Body weight 77.11 kg Magdalena Carrington Other [facility] Other 10-04-2022 09:15-0500 Respiratory rate 18 /min Magdalena Carrington Other [facility] Other 10-04-2022 09:15-0500 SaO2% (BldA) [Mass fraction] 95 % Magdalena Carrington Other [facility] Other 04-08-2022 19:10-0400 Body height 153.67 cm Ale Victoria Other [facility] Other 04-08-2022 19:10-0400 Body mass index (BMI) [Ratio] 34.38 kg/m2 Ale Victoria Other [facility] Other 04-08-2022 19:10-0400 Body temperature 97.8 [degF] Ale Victoria Other [facility] Other 04-08-2022 19:10-0400 Body weight 81.19 kg Ale Victoria Other [facility] Other 04-08-2022 19:10-0400 Diastolic blood pressure 77 mm[Hg] Ale Victoria Other [facility] Other 04-08-2022 19:10-0400 Respiratory rate 18 /min Ale Victoria Other [facility] Other 04-08-2022 19:10-0400 SaO2% (BldA) [Mass fraction] 96 % Ale Victoria Other [facility] Other 04-08-2022 19:10-0400 Systolic blood pressure 120 mm[Hg] Ale Victoria Other [facility] Other Encounters Encounter Date Encounter Type Care Provider Facility Start: 06-10-2024 End: 06-10-2024 Emergency department patient visit VIRIDIANA MARK [facility] Start: 05-20-2024 End: 05-20-2024 Orders Only Viridiana Mark STOCK TRACER Work Phone: [facility] Comment on above: Nausea and vomiting, unspecified vomiting type (Primary Dx); Unexplained weight loss Start: 05-14-2024 End: 05-14-2024 Bamboo flowsheet Viridiana Mark STOCK TRACER Work Phone: [facility] Start: 05-14-2024 End: 05-14-2024 Bamboo flowsheet Viridiana Mark STOCK TRACER Work Phone: [facility] Start: 05-14-2024 End: 05-14-2024 Patient encounter procedure Viridiana Mark STOCK TRACER Work Phone: [facility] Comment on above: Encounter for subseq uent annual wellness visit (AWV) in Medicare patient (Primary Dx); Tobacco dependence; Centrilobular emphysema (CMS/HCC); Unexplained weight loss; Gastroesophageal reflux disease, unspecified whether esophagitis present; Nausea and vomiting, unspecified vomiting type; Oral thrush Start: 05-14-2024 End: 05-14-2024 ambulatory VIRIDIANA MARK Not Available Start: 04-07-2024 End: 04-08-2024 Emergency department patient visit ALEC BLAKE [facility] Start: 03-07-2024 End: 03-07-2024 ambulatory VIRIDIANA FORRESTERHELADIOZ Not Available Start: 02-28-2024 End: 02-29-2024 [facility] Start: 12-06-2023 End: 12-06-2023 ambulatory ZANDRA BAI Not Available Start: 09-14-2023 Telephone encounter Zandra cyr DO Work Phone: [facility] Start: 10-12-2022 End: 10-12-2022 ambulatory [facility] VIRIDIANA AICAilynHOLZ Facility:[facility] Start: 10-04-2022 End: 10-04-2022 ambulatory Magdalenaalexei Carrington Other [facility] Other Start: 10-04-2022 Office outpatient vi sit 15 minutes Magdalenaalexei Carrington [facility] Start: 08-01-2022 End: 08-01-2022 ambulatory [facility] VIRIDIANA AICHHOLZ Facility:[facility] Start: 05-16-2022 End: 05-17-2022 ambulatory [facility] VIRIDIANA AICHHOLZ Facility:[facility] Start: 04-19-2022 End: 04-20-2022 ambulatory [facility] VIRIDIANA AICHHOLZ Facility:[facility] Start: 04-11-2022 End: 04-11-2022 ambulatory [facility] VIRIDIANA AICHHOLZ Facility:[facility] Start: 04-08-2022 End: 04-08-2022 ambulatory Ale Victoria Other [facility] Other Start: 04-08-2022 Office outpatient vi sit 15 minutes Ale Victoria [facility] Start: 01-13-2022 End: 01-14-2022 ambulatory [facility] VIRIDIANA AICHHOLZ Facility:[facility] Procedures Date Procedure Procedure Detail Performing Clinician Start: 03-07-2024 Mammography Viridiana hernández STOCK TRACER Work Phone: Start: 03-07-2024 Microscopic observat ion [Identifier] in Cervix by Cyto stain Viridiana Mark STOCK TRACER Work Phone: Plan of Treatment Date Care Activity Detail Author Start: 03-07-2027 Screening for malign ant neoplasm of cervix [facility] Start: 05-14-2025 Medicare Annual Well ness (AWV) Medicare Annual Wellness (AWV) [facility] Start: 03-07-2025 Screening for malign ant neoplasm of breast Mammogram [facility] Start: 03-07-2025 Screening for malign ant neoplasm of colon Colorectal Cancer Screening [facility] Comment on above: Postponed from 11/23 (Patient Refused) Start: 06-18-2024 End: 06-18-2024 Patient encounter procedure 06/18/2024 2:00 PM EST Office Visit [facility] [address] [place] [phone] Viridiana Mark NP [address] [place] [phone] [facility] Start: 06-06-2024 Influenza vaccination Influenza Vacc ine (#1) [facility] Comment on above: Postponed from 04/07 (Patient Does Not Have Time) Start: 05-20-2024 End: 05-20-2025 NM Gallbladder Views W cholecystokinin and W radionuclide IV NM hepatobiliary w cholecystokinin Imaging Routine Nausea and vomiting, unspecified vomiting type Unexplained weight loss Expected: 05/20/2024 (Approximate), Expires: 05/20/2025 [facility] Work Phone: Comment on above: Expected: 05/20/2024 (Approximate), Expires: 05/20/2025 Start: 05-14-2024 End: 05-14-2025 Amylase [Enzymatic activity/volume] in Serum or Plasma Amylase Lab Routine Nausea and vomiting, unspecified vomiting type Expected: 05/14/2024 (Approximate), Expires: 05/14/2025 [facility] Comment on above: Expected: 05/14/2024 (Approximate), Expires: 05/14/2025 Start: 05-14-2024 End: 05-14-2025 C reactive protein [Mass/volume] in Serum or Plasma C-reactive protein Lab Routine Unexplained weight loss Expected: 05/14/2024 (Approximate), Expires: 05/14/2025 [facility] Work Phone: Comment on above: Expected: 05/14/2024 (Approximate), Expires: 05/14/2025 Start: 05-14-2024 End: 05-14-2025 Erythrocyte sedimentation rate Sedimentation rate, automated Lab Routine Unexplained weight loss Expected: 05/14/2024 (Approximate), Expires: 05/14/2025 [facility] Comment on above: Expected: 05/14/2024 (Approximate), Expires: 05/14/2025 Start: 05-14-2024 End: 05-14-2025 Lipase [Enzymatic activity/volume] in Serum or Plasma Lipase Lab Routine Nausea and vomiting, unspecified vomiting type Expected: 05/14/2024 (Approximate), Expires: 05/14/2025 [facility] Comment on above: Expected: 05/14/2024 (Approximate), Expires: 05/14/2025 Start: 05-14-2024 End: 05-14-2025 Thyroxine (T4) free [Mass/volume] in Serum or Plasma T4, free Lab Routine Unexplained weight loss Expected: 05/14/2024 (Approximate), Expires: 05/14/2025 [facility] Comment on above: Expected: 05/14/2024 (Approximate), Expires: 05/14/2025 Start: 05-14-2024 End: 05-14-2025 Triiodothyronine (T3) Free [Mass/volume] in Serum or Plasma T3, free Lab Routine Unexplained weight loss Expected: 05/14/2024 (Approximate), Expires: 05/14/2025 [facility] Comment on above: Expected: 05/14/2024 (Approximate), Expires: 05/14/2025 Start: 05-14-2024 End: 05-14-2025 US Gallbladder US gallbladder Imaging Routine Unexplained weight loss Nausea and vomiting, unspecified vomiting type Expected: 05/14/2024 (Approximate), Expires: 05/14/2025 [facility] Comment on above: Expected: 05/14/2024 (Approximate), Expires: 05/14/2025 Start: 05-14-2024 End: 05-14-2024 Patient encounter procedure 05/14/2024 10:30 AM EDT Office Visit [facility] [address] [place] [id number] Viridiana Mark, FRANCES [address] [place] [id number] Tobacco dependence (Primary Dx) [facility] Comment on above: Tobacco dependence ( Primary Dx) Start: 04-07-2023 Influenza vaccination Influenza Vacc ine (#1) [facility] Start: 2005 Screening for malign ant neoplasm of breast Mammogram [facility] Start: 11-24-1995 Screening for malign ant neoplasm of cervix [facility] Start: 1986 Screening for malign ant neoplasm of cervix Pap Smear [facility] Start: 1965 Medicare Annual Well ness (AWV) Medicare Annual Wellness (AWV) [facility] Start: 1965 Screening for malign ant neoplasm of colon [facility] Immunizations Immunization Date Immunization Notes Care Provider Fa [facility] 06-20-2022 Influenza, injectabl e, [employer] Canine Kidney, preservative free, quadrivalent Viridiana Mark STOCK TRACER Work Phone: [facility] 06-20-2022 influenza virus vacc ine, unspecified formulation Zandra Bai DO Work Phone: [facility] 04-22-2011 influenza, seasonal, injectable Viridiana Mark STOCK TRACER Work Phone: [facility] 04-22-2011 pneumococcal polysaccharide vaccine, 23 valent Viridiana Mark STOCK TRACER Work Phone: [facility] Payers Date Payer Category Payer Medicare [facility] MEDICARE UHC DUAL COMPLETE [id number] 2023-Present [address] [place] [address] [id number] 2023 Medicare (Managed Care) [facility] MEDICARE [id number] 2023 Medicare [id number] 2020 Medicaid [id number] 1965 Unknown [id number] 2.16.840.1.908931.3.579.2. 593 1965 Unknown [id number] 2.16.840.1.709305.3.579.2. 593 1965 Unknown [id number] 2.16.840.1.331378.3.579.2. 593 1965 Unknown [id number] 2.16.840.1.302277.3.579.2. 593 1965 Unknown [id number] 2.16.840.1.613845.3.579.2. 593 1965 Unknown [id number] 2.16.840.1.799229.3.579.2. 593 1965 Unknown [id number] 2.16.840.1.896312.3.579.2. 1259 1965 Unknown [id number] 2.16.840.1.498577.3.579.2. 1259 1965 Unknown [id number] 2.16.840.1.987444.3.579.2. 1259 1965 Unknown [id number] 2.16.840.1.469001.3.579.2. 1259 1965 Unknown [id number] 2.16.840.1.129670.3.579.2. 1286 1965 Unknown [id number] 2.16.840.1.795297.3.579.2. 1285 1965 Unknown [id number] 2.16.840.1.196994.3.579.2. 1285 1965 Unknown [id number] 2.16.840.1.553391.3.579.2. 1285 1965 Unknown [id number] 2.16.840.1.501783.3.579.2. 1285 1965 Unknown [id number] 2.16.840.1.010624.3.579.2. 1285 1965 Unknown [id number] 2.16.840.1.635768.3.579.2. 1285 1965 Unknown [id number] 2.16.840.1.020295.3.579.2. 6 1959 Medicaid [id number] 2.16.840.1.537310.19 1959 Medicare [id number] [id number] 1959 Medicare [id number] Social History Date Type Detail Facility Unknown if ever smoked [facility] Other Start: 03-07-2024 End: 05-14-2024 Sex Assigned At Always Prepped Other Tobacco smoking status [facility] Tobacco smoking consumption unknown [facility] Start: 1965 Sex Assigned At Not on file [facility] Start: 12-06-2023 Tobacco smoking status [facility] Smokes tobacco daily [facility] History of tobacco use Cigarette Smoker [facility] Start: 03-07-2024 End: 05-14-2024 Alcoholic beverage intake Lifetime non-drinker (finding) [facility] Start: 03-07-2024 End: 05-14-2024 History of Social function [facility] History of Present illness Narrative 05-14-2024 Viridiana Mark NP - 05/14/2024 1:05 PM Bryan Mark NP - 05/14/2024 1:03 PM Bryan Mark NP - 05/14/2024 1:03 PM Bryan Mark NP - 05/14/2024 1:02 PM EDT Note Date & Type Note Facility 05-14-2024 History of Presen t illness Narrative Associated Problem(s): Oral thrush Nystatin Urged to rinse mouth after use of inhaler Associated Problem(s): Nausea and vomiting Prn zofran and check GBUS, possible HIDA Fu in 4 weeks Associated Problem(s): GERD (gastroesophageal reflux disease) Limit caffeine Start PPI Associated Problem(s): Centrilobular emphysema (CMS/HCC) May continue ICS/LABA/LAMA And prn albuterol Urged to quit smoking Associated Problem(s): Unexplained weight loss Will check labs, order GBUS and HIDA if needed Associated Problem(s): Tobacco dependence The patient has been advised of the risks of continued smoking: stroke, CO, all forms of cancer, lung disease, and . Options for quitting smoking include: cold turkey, hypnosis, acupuncture, nicotine replacement meds (gum, lozenges, and patches), Buproprion, and Varenicline. At this time pt is encouraged to evaluate their goals for wanting to quit smoking, and reach out to provider when ready to start this process Associated Problem(s): Encounter for subsequent annual wellness visit (AWV) in Medicare patient Reviewed Ht/Wt/BMI Recommend eye exam yearly Recommend dental exams twice a year Balance work/leisure activities Exercises is recommended most days of the week (appropriate as chronic conditions allow) Follow up yearly and prn Pt has been having episodes daily of vomiting and nausea, pt was taking omeprazole 20mg caps prescribed from [facility] for GERD. Images from the original note were not included. Amalia Jeffery is a 58 y.o. female presents with chief complaint of No chief complaint on file. HPI: Here for AWV: Diet: variety, feels full sooner and has NV Activity: no issues Mental: no acute depression/anxiety Living will or HCPOA:none Concerns:weight loss SUBJECTIVE: MEDICATIONS: Current Outpatient Medications Medication Instructions albuterol HFA (Ventolin HFA) 90 mcg/act inhaler 2 puffs, Inhalation, Every 4 hours PRN albuterol 2.5 mg, Nebulization, 4 times daily PRN Mgsosbq-Tdtplgadmhl-Gdzypacamr (Breztri Aerosphere) 160-9-4.8 MCG/ACT aerosol 2 puffs, Inhalation, 2 times daily nystatin (MYCOSTATIN) 500,000 Units, Oral, 4 times daily, Swish around and spit out ondansetron ODT (ZOFRAN-ODT) 4 mg, Oral, Every 8 hours PRN pantoprazole (PROTONIX) 40 mg, Oral, Daily before breakfast, Do not crush, chew, or split. traZODone (DESYREL) 50 mg, Oral, Nightly PRN ALLERGIES: Allergies Allergen Reactions Percocet [Oxycodone-Acetaminophen] Other, GI intolerance and Dizziness Pt experienced: SOB, spinning, dizziness, out of body feeling, pressure/weight on top of her, and nausea. Theophylline Unknown REVIEW OF SYMPTOMS: Review of Systems Constitutional: Positive for unexpected weight change. Negative for appetite change, chills and fever. HENT: Negative for congestion, ear pain and sore throat. Eyes: Negative for pain, discharge, redness and visual disturbance. Respiratory: Positive for cough. Negative for shortness of breath and wheezing. Cardiovascular: Negative for chest pain, palpitations and leg swelling. Gastrointestinal: Positive for nausea and vomiting. Negative for abdominal pain, blood in stool, constipation and diarrhea. Genitourinary: Negative for difficulty urinating, dysuria and frequency. Musculoskeletal: Negative for arthralgias, back pain, joint swelling and myalgias. Skin: Negative for rash and wound. Neurological: Negative for dizziness, tremors, seizures, syncope and headaches. Psychiatric/Behavioral: Negative for behavioral problems, self-injury and suicidal ideas. The patient is not nervous/anxious. Hematological: Does not bruise/bleed easily. Endocrine: Negative for polydipsia, polyphagia and polyuria. Allergic/Immunologic: Negative for environmental allergies and food allergies. PAST MEDICAL HISTORY Past Medical History: Diagnosis Date Anxiety COPD (chronic obstructive pulmonary disease) ([facility]) History reviewed. No pertinent surgical history. family history is not on file. OBJECTIVE: Visit Vitals BP 120/80 (BP Location: Left arm, Patient Position: Sitting, BP Cuff Size: Adult long) Pulse 77 Temp 98 F (Temporal) Resp 19 Ht 5' 1 Wt 121 lb 6.4 oz SpO2 99% BMI 22.94 kg/m Smoking Status Every Day BSA 1.54 m Physical Exam Vitals and nursing note reviewed. Constitutional: General: She is not in acute distress. Appearance: Normal appearance. HENT: Head: Normocephalic and atraumatic. Right Ear: Tympanic membrane, ear canal and external ear normal. Left Ear: Tympanic membrane, ear canal and external ear normal. Nose: Nose normal. No congestion or rhinorrhea. Mouth/Throat: Mouth: Mucous membranes are moist. Pharynx: No oropharyngeal exudate or posterior oropharyngeal erythema. Eyes: Extraocular Movements: Extraocular movements intact. Conjunctiva/sclera: Conjunctivae normal. Neck: Vascular: No carotid bruit. Cardiovascular: Rate and Rhythm: Normal rate and regular rhythm. Pulses: Normal pulses. Heart sounds: Normal heart sounds. Pulmonary: Effort: Pulmonary effort is normal. No respiratory distress. Breath sounds: Normal breath sounds. No wheezing or rales. Abdominal: General: Bowel sounds are normal. There is no distension. Palpations: Abdomen is soft. There is no mass. Tenderness: There is no abdominal tenderness. Musculoskeletal: General: Normal range of motion. Cervical back: Normal range of motion and neck supple. Right lower leg: No edema. Left lower leg: No edema. Lymphadenopathy: Cervical: No cervical adenopathy. Skin: General: Skin is warm and dry. Capillary Refill: Capillary refill takes 2 to 3 seconds. Findings: No rash. Neurological: General: No focal deficit present. Mental Status: She is alert and oriented to person, place, and time. Psychiatric: Mood and Affect: Mood normal. Behavior: Behavior normal. Thought Content: Thought content normal. Judgment: Judgment normal. ASSESSMENT AND PLAN: No follow-ups on file. Problem List Items Addressed This Visit GERD (gastroesophageal reflux disease) Limit caffeine Start PPI Relevant Medications pantoprazole (Protonix) 40 MG EC tablet Centrilobular emphysema (CMS/HCC) May continue ICS/LABA/LAMA And prn albuterol Urged to quit smoking Tobacco dependence The patient has been advised of the risks of continued smoking: stroke, CO, all forms of cancer, lung disease, and . Options for quitting smoking include: cold turkey, hypnosis, acupuncture, nicotine replacement meds (gum, lozenges, and patches), Buproprion, and Varenicline. At this time pt is encouraged to evaluate their goals for wanting to quit smoking, and reach out to provider when ready to start this process Encounter for subsequent annual wellness visit (AWV) in Medicare patient - Primary Reviewed Ht/Wt/BMI Recommend eye exam yearly Recommend dental exams twice a year Balance work/leisure activities Exercises is recommended most days of the week (appropriate as chronic conditions allow) Follow up yearly and prn Unexplained weight loss Will check labs, order GBUS and HIDA if needed Relevant Orders C-reactive protein Sedimentation rate, automated T4, free T3, free US gallbladder Nausea and vomiting Prn zofran and check GBUS, possible HIDA Fu in 4 weeks Relevant Medications ondansetron ODT (Zofran-ODT) 4 MG disintegrating tablet Other Relevant Orders Amylase Lipase US gallbladder Oral thrush Nystatin Urged to rinse mouth after use of inhaler Relevant Medications nystatin (Mycostatin) 382163 UNIT/ML suspension documented in this encounter [facility] Clinical Note 04-07-2024 Note Date & Type Note Facility 04-07-2024 Note XR KNEE LT 3 VWS Procedure: Left knee radiographs performed Number of views:3 History:Trauma knee pain Comparison:None Findings: There is no fracture, dislocation, effusion, or destructive lesion. Impression: No acute findings. Finalized by Fermín Porras MD on 04/07/2024 11:04 AM [facility] Telephone encounter Note 09-14-2023 Telephone Encounter - Josie Vazquez - 09/14/2023 3:12 PM EST Note Date & Type Note Facility 09-14-2023 Telephone encount er Note Patient called lvm at 2:38pm saying her breathing machine stopped working and needs a prescription order for a new machine sent to [facility]. Thank you [facility] Note 09-14-2023 Telephone Encounter - Josie Vazquez - 09/14/2023 3:12 PM EST Note Date & Type Note Facility 09-14-2023 Miscellaneous Notes Formattin g of this note might be different from the original. Patient called lvm at 2:38pm saying her breathing machine stopped working and needs a prescription order for a new machine sent to [facility]. Thank you documented in this encounter [facility] Evaluation note 10-04-2022 Note Date & Type Note Facility 10-04-2022 Evaluation note Encounter Date Diagnosis Assessment Notes Sep, Chronic obstructive pulmonary disease with acute exacerbation (ICD-10 - J44.1) Kenalog IM given in office and recommend patient to start oral antihistamine [facility] Other Evaluation note 04-08-2022 Note Date & [...] to only the absolute essential needed assessments. [facility] Other Evaluation note Note Date & Type Note Facility Evaluation note Diagnosis Encounter for subsequent annual wellness visit (AWV) in Medicare patient- Primary Tobacco dependence Tobacco use disorder Centrilobular emphysema ([facility]) Unexplained weight loss Loss of weight Gastroesophageal reflux disease, unspecified whether esophagitis present Nausea and vomiting, unspecified vomiting type Oral thrush Candidiasis of mouth documented in this encounter [facility] Evaluation note Note Date & Type Note Facility Evaluation note Diagnosis Rib pain on right side- Primary Centrilobular emphysema ([facility]) Moderate persistent asthma without complication ([facility]) Encounter for subsequent annual wellness visit (AWV) in Medicare patient- Primary Tobacco dependence Tobacco use disorder Centrilobular emphysema ([facility]) Unexplained weight loss Loss of weight Gastroesophageal reflux disease, unspecified whether esophagitis present Nausea and vomiting, unspecified vomiting type Oral thrush Candidiasis of mouth Nausea and vomiting, unspecified vomiting type- Primary Unexplained weight loss Loss of weight documented in this encounter [facility] History general Narrative - Reported Note Date [...] History Foot Surgery Hospitalization History See Above [facility] Other Summary Purpose Family History No Family History Records FoundNo Family History Records FoundNo Family History Records FoundNo Family History Records Found Advance Directives No Advanced Directives Records FoundNo Advanced Directives Records FoundNo Advanced Directives Records FoundNo Advanced Directives Records Found Additional Source Comments INFORMATION SOURCE (unrecogn ized section and content) DATE CREATED AUTHOR 07/17/2021 [facility] dical Specialist DATE CREATED AUTHOR AUTHOR'S ORGANIZ ATION 10/14/2022 [facility] DATE CREATED AUTHOR AUTHOR'S ORGANIZ ATION 05/15/2024 [facility] dical Specialists EPIC DATE CREATED AUTHOR AUTHOR'S ORGANIZ ATION 06/11/2024 [facility] REASON FOR VISIT (unrecogniz ed section and content) FINGER LACERATION, CUT ON PI EMILY OF [place] 4PM TODAYHISTORY OF COPD; SORE THROAT, SINUS CONGESTION, EARACHE Care Teams (unrecognized sec tion and content) [employer] Relationship Specialty Start Date End Date Saad Boyce MD PCP - General Family Medicine 02/01/23 [employer] Relationship Specialty Start Date End Date Saad Boyce MD [address] [place] [phone] PCP - General Family Medicine 12/06/23 Viridiana Mark NP [address] [place] [phone] [facility] 03/07/24 08/06/24 [employer] Br[employer] Maker Relationship Specialty Start Date End Date Saad Boyce MD [address] [place] [phone] PCP General Family Medicine 12/06/23 Viridiana Mark NP [address] [place] [phone] PCP [facility] 03/07/24 08/06/24 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 [facility]. provides no warranty or guarantee of the accuracy or completeness of information in this document.
== END 2024-06-12 08:21 | disposition home or self-care (01) ==
LOC: NM 08:20
PROVIDERS: PCP Nurse Practitioner; Visit Provider Nurse Practitioner
DX: R11.2 Nausea with vomiting, unspecified (principal); R63.4 Abnormal weight loss; K82.8 Other specified diseases of gallbladder
CPT/HCPCS: 78227; A9537

== ENCOUNTER 2024-06-17 09:38 | Outpatient (OUT) | payer MEDICARE, MEDICAID, SELFPAY | END 2024-06-17 09:39 | disposition home or self-care (01) | LOC: LAB 09:38 | PROVIDERS: PCP Nurse Practitioner; Visit Provider Nurse Practitioner | DX: R11.2 Nausea with vomiting, unspecified (principal) | CPT/HCPCS: 36415; 83690 ==

== ENCOUNTER 2024-06-24 11:20 | Outpatient (OUT) | payer MEDICARE, MEDICAID, SELFPAY ==
--- OUTSIDE RECORDS SUMMARY | 2024-06-24 11:29 | XMS_ITS | CCD ---
Author Organization [facility] CliniSyva Care Team Providers Care Metal Die Finisher Name Role Phone Ale Victoria Unavailable AICHHOLZ, MEDICAL DOCTOR MD VIRIDIANA Primary Care Unavailable MARKER ., DR TUCKER Admitting Unavailable MARKER ., DR TUCKER Attending Unavailable MARKER ., DR TUCKER Consulting Unavailable TRISTIAN GASPAR Consulting Unavailable AICHHOLZ, MEDICAL DOCTOR MD VIRIDIANA Admitting Unavailable AICHHOLZ, MEDICAL DOCTOR MD VIRIDIANA Attending Unavailable AICHHOLZ, MEDICAL DOCTOR MD VIRIDIANA Primary Care Unavailable AICHHOLZ, MEDICAL DOCTOR MD VIRIDIANA Consulting Unavailable AICHHOLZ, MEDICAL DOCTOR MD VIRIDIANA Admitting Unavailable AICHHOLZ, MEDICAL DOCTOR MD VIRIDIANA Attending Unavailable AICHHOLZ, MEDICAL DOCTOR MD VIRIDIANA Primary Care Unavailable TRISH, DR CANDI Ramirez Consulting Unavailable AICHHOLZ, MEDICAL DOCTOR MD VIRIDIANA Consulting Unavailable AICHHOLZ, MEDICAL DOCTOR MD VIRIDIANA Primary Care Unavailable TENZIN LONGO Admitting Unavailable JAMES ., TENZIN Attending Unavailable TENZIN LONGO Consulting Unavailable CANDI LANGFORD Consulting Unavailable AICHHOLZ, MEDICAL DOCTOR MD VIRIDIANA Primary Care Unavailable JOSHUA ., DR NOE Admitting Unavailable HAY ., DR NOE Attending Unavailable HAY ., DR NOE Consulting Unavailable AICHHOLZ, MEDICAL DOCTOR MD VIRIDIANA Primary Care Unavailable HAY ., DR NOE Admitting Unavailable JOSHUA ., DR NOE Attending Unavailable KOLTON .NEGIN Consulting UnavailLOWELL De Santiago Consulting Unavailable Magdalena Carrington Unavailable Austen HATCH, Saad Primary Care Provider Austen HATCH, Saad Primary Care Provider [phone] Aichtaryn FIRE RANGE TECHNICIAN, Viridiana Unavailable AICHTARYN, VIRIDIANA J Primary Care Unavailable SONAL JIM Attending Unavailable SONAL JIM Attending Unavailable SONAL JIM Referring Unavailable AICHHOLZ, VIRIDIANA J Primary Care Unavailable AICHHOLZ, VIRIDIANA J Primary Care Unavailable ALEC BLAKE Attending Unavailable ALEC BLAKE Attending Unavailable ALEC BLAKE Referring Unavailable VIRIDIANA MARK Primary Care Unavailable VIRIDIANA MARK Primary Care Unavailable ZANDRA BAI Attending Unavailable ZANDRA BAI Referring Unavailable VIRIDIANA MARK Attending Unavailable VIRIDIANA MARK Attending Unavailable VIRIDIANA MARK Attending Unavailable Allergies Allergy Classification Reported Allergen(s) Allergy Type Date of Onset Reaction(s) Facility (8 sources) Theophylline; Translations: [THEOPHYLLINE] Drug Allergy 4 Unknown [facility] Work Phone: (1 source) Theophylline Drug Allergy [facility] Repository (5 sources) Acetaminophen / oxyCODONE Drug Allergy 4 [...] 05/14/2024 Discontinued albuterol 0.83 mg/ml inhalation solution (14 sources) beta2-Adrenergic Agonist Start: 12-06-2023 albuterol (2.5 [...] / glycopyrrolate 0.009 mg/actuat metered dose inhaler (5 sources) Corticosteroid, beta2-Adrenergic Agonist Start: 12-06-2023 take 2 puff(s) by inhalation in the morning Dydbyud-Faddddwkthm-Bhjtzkkzsi (Breztri Aerosphere) 160-9-4.8 MCG/ACT aerosol Indications: Chronic [...] (2 sources) Corticosteroid methylPREDNISolo ne Not-Taking nystatin 932748 unt/ml oral suspension (3 sources) Polyene Antifungal Start: 05-14-2024 End: 05-28-2024 nystatin (Mycostatin) [id number] UNIT/ML suspension Indications: Oral thrush Take 5 [...] pantoprazole 40 mg delayed release oral tablet (4 sources) Proton Pump Inhibitor Start: 05-14-2024 End: 06-13-2024 take 1 tablet by mouth before mealtime pantoprazole (Protonix) 40 MG EC tablet Indications: Gastroesophageal reflux disease, unspecified whether esophagitis present Take 1 tablet (40 mg) by mouth in the morning. Take before meals. Do not crush, chew, or split.. 30 tablet 1 05/14/2024 Active Phentermine (1 source) Sympathomimetic Amine Anorectic Adipex-P Active traZODone hydrochloride 50 mg oral tablet (5 sources) Serotonin Reuptake Inhibitor Start: 01-11-2023 traZODone [...] Problem Date Documented Date Episodic/Chronic Allergic reactions (5 sources) Atopic dermatitis; Translations: [Other atopic dermatitis] Onset: 11-29-2023 11-29-2023 Chronic Asthma (10 sources) Asthma; Translations: [Unspecified asthma, uncomplicated] Onset: 05-10-2017 11-29-2023 Chronic Biliary tract disease (3 sources) Biliary dyskinesia; Translations: [Other specified diseases of gallbladder] Onset: 06-13-2024 06-13-2024 Episodic Chronic obstructive pulmonary disease and bronchiectasis (20 sources) Chronic obstructive pulmonary disease with (acute) exacerbation; Translations: [Chronic obstructive pulmonary disease, unspecified] Onset: 05-10-2017 Resolved: 03-04-2024 Chronic E Codes: Fall (1 source) Unspecified fall, initial encounter; Translations: [Unspecified fall, initial encounter] Onset: 04-07-2024 Episodic E Codes: Fall (1 source) Fall Onset: 04-07-2024 Esophageal disorders (7 sources) Gastroesophageal reflux disease; Translations: [Gastro-esophageal reflux disease without esophagitis] Onset: 05-10-2017 11-29-2023 Chronic Headache; including migraine (3 sources) Headache; including migraine; Translations: [HEADACHE UNSPECIFIED] Onset: 01-13-2022 Miscellaneous mental health disorders (5 sources) Primary insomnia; Translations: [Primary insomnia] Onset: 11-29-2023 11-29-2023 Chronic Mycoses (6 sources) Candidiasis of mouth; Translations: [Candidal stomatitis] Onset: 05-14-2024 05-14-2024 Episodic Nausea and vomiting (8 sources) Nausea and vomiting; Translations: [Nausea with vomiting, unspecified] Onset: 05-14-2024 05-14-2024 Episodic Other aftercare (1 source) Other intermediate frame tender (current) drug therapy; Translations: [OTH GLASS ENGRAVER CURRENT DRUG THERAPY] Onset: 08-02-2022 Episodic Other lower respiratory disease (4 sources) Shortness of breath; Translations: [SHORTNESS OF BREATH] Onset: 04-11-2022 Episodic Other non-traumatic joint disorders (1 source) Pain in left knee; Translations: [Pain in left knee] Onset: 04-07-2024 Episodic Other nutritional; endocrine; and metabolic disorders (8 sources) Unexplained weight loss ; Translations: [Abnormal weight loss] Onset: 05-14-2024 05-14-2024 Episodic Other upper respiratory disease (5 sources) Allergic rhinitis; Translations: [Allergic rhinitis, unspecified] Onset: 11-29-2023 11-29-2023 Chronic Residual codes; unclassified (5 sources) Hypoxia; 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] Onset: 09-16-2021 11-29-2023 Chronic Residual codes; unclassified (5 sources) Obstructive sleep apnea syndrome; Translations: [Obstructive [...] initial encounter] Onset: 02-28-2024 Episodic Substance-related disorders (7 sources) Tobacco dependence syndrome; Translations: [Nicotine dependence, [...] Date Documented Da te Episodic/Chronic Anxiety disorders (9 sources) Anxiety disorder, unspecified; Translations: [Generalized anxiety disorder] Onset: 08-01-2022 Resolved: 03-07-2024 Chronic Genitourinary symptoms and ill-defined conditions (5 sources) Asymptomatic microscopic hematuria; Translations: [Asymptomatic microscopic hematuria] Onset: 11-29-2023 11-29-2023 Episodic Mood disorders (5 sources) Major depressive disorder; Translations: [Major depressive disorder, single episode, unspecified] Onset: 11-29-2023 Resolved: 03-07-2024 03-07-2024 Chronic Mood disorders (4 sources) Mood disorders Onset: 05-14-2024 05-14-2024 Nonspecific chest pain (4 sources) Chest pain, unspecified; Translations: [CHEST PAIN UNSPECIFIED] Onset: 05-16-2022 Episodic Open wounds of extremities (1 source) Laceration without foreign body of right middle finger without damage to nail, initial encounter Onset: 04-08-2022 Resolved: 04-08-2022 Episodic Other lower respiratory disease (6 sources) Rib pain; Translations: [Pleurodynia] Onset: 02-28-2024 03-07-2024 Episodic Other nutritional; endocrine; and metabolic disorders (5 sources) Body mass index 30+ - obesity; Translations: [Obesity, unspecified] Onset: 11-29-2023 Resolved: 03-07-2024 03-07-2024 Chronic Spondylosis; intervertebral disc disorders; other back problems (5 sources) Thoracic back pain; Translations: [Pain in [...] Wesly Grant MD on 06/10/2024 10:50 AM Normal [facility] XR FOOT RT MIN 3 VWSon [...] Grant MD on 06/10/2024 10:51 AM Normal [facility] CT BRAIN WO CONTon CT BRAIN WO [...] Porras MD on 04/07/2024 11:01 AM Normal [facility] CT CERVICAL SPINE WO CONTon 04-07-2024 [...] Porras MD on 04/07/2024 11:05 AM Normal [facility] CT FACIAL BONES WO CONTon CT FACIAL [...] Porras MD on 04/07/2024 11:06 AM Normal [facility] XR RIBS RT 3 VWS W PA [...] Springer MD on 02/28/2024 10:57 PM Normal [facility] XR CHEST 2 VIEWSon XR CHEST 2 [...] (Bld) [Mass/Vol] 31.0 pg/mL Normal <=900.[address] [facility] Comment on above: Performed By: #### H STROPN, CMP, BNP ####[facility] [address] [place] [address]Dr. Josafat Love CBC AUTO DIFFon 10-12-2022 BASO # 0.0 103/ul Normal 0.0-0.[address] [facility] Comment on above: Performed By: #### C BC ####[facility] [address] [place], [place] [address]Dr. Aprilgeo Love Basophils/100 WBC (Bld) 0.4 % Normal 0.2-2.[address] [facility] Comment on above: Performed By: #### C BC ####[facility] [address] [place], [place] [address]Dr. Josafat Love EO # 0.1 103/ul Normal 0.0-0.[address] [facility] Comment on above: Performed By: #### C BC ####[facility] X[address] [place], [place] [address]Dr. Josafat Love Eosinophils/100 WBC (Bld) 1.3 % Normal 0.9-7.[address] [facility] Comment on above: Performed By: #### C BC ####[facility] [address] [place], [place] [address]Dr. Josafat Love Erythrocyte distribution width (RBC) [Ratio] 13.1 % Normal 11.0-15.[address] [facility] Comment on above: Performed By: #### C BC ####[facility] [address] [place], [place] [address]Dr. Josafat Love Hematocrit (Bld) [Volume fraction] 45.0 % Normal 36.0-48.[address] [facility] Comment on above: Performed By: #### C BC ####[facility] [address] [place], [place] [address]Dr. Josafat Love Hemoglobin (Bld) [Mass/Vol] 15.0 g/dL Normal 12.0-16.[address] [facility] Comment on above: Performed By: #### C BC ####[facility] [address] [place] [id number]. Josafat Love IG # 0.03 10e3/ul Normal 0.00-0.[address] [facility] Comment on above: Performed By: #### C BC ####[facility] [address] [place] [address]Dr. Josafat Love IG % 0.3 % Normal 0.0-0.[address] [facility] Comment on above: Performed By: #### C BC ####[facility] [address] [place] [address]Dr. Josafat Love LYMPH # 1.9 103/ul Normal 1.2-3.[address] [facility] Comment on above: Performed By: #### C BC ####[facility] [address] [place] [address]Dr. Josafat Ivan Lymphocytes/100 WBC (Bld) 19.5 % Critically low 20.5-60.[address] [facility] Comment on above: Performed By: #### C BC ####[facility] [address] [place] [address]Dr. Josafat Love MANUAL DIFF REQ NO Normal [facility] Comment on above: Performed By: #### C BC ####[facility] [address] [place] [address]Dr. Josafat Love MCH (RBC) [Entitic mass] 29.8 pg Normal 26.7-34.[address] [facility] Comment on above: Performed By: #### C BC ####[facility] [address] [place] [address]Dr. Josafat Love MCHC (RBC) [Mass/Vol] 33.3 g/dL Normal 29.9-35.[address] [facility] Comment on above: Performed By: #### C BC ####[facility] [address] [place] [address]Dr. Josafat Love MCV (RBC) [Entitic vol] 89.3 fL Normal 81.0-99.[address] [facility] Comment on above: Performed By: #### C BC ####[facility] [address] [place] [id number]. Josafat Love MONO # 0.5 103/ul Normal 0.3-0.[address] [facility] Comment on above: Performed By: #### C BC ####[facility] [address] [place] [id number]. Josafat Love Monocytes/100 WBC (Bld) 5.3 % Normal 1.7-12.[address] [facility] Comment on above: Performed By: #### C BC ####[facility] [address] [place] [phone]. Josafat Love NEUT # 7.2 103/ul Critically high 1.4-6.5 [facility] Comment on above: Performed By: #### C BC ####[facility] [address] [place] [address]Dr. Josafat Love Neutrophils/100 WBC (Bld) 73.2 % Normal 43.0-75.[address] [facility] Comment on above: Performed By: #### C BC ####[facility] [address] [place] [phone]. Josafat Love Platelet mean volume (Bld) [Entitic vol] 8.9 fL Critically low 9.5-13.[address] [facility] Comment on above: Performed By: #### C BC ####[facility] [address] [place] [phone]. Josafat Love PLT 282 103/ul Normal 150-[address] [facility] Comment on above: Performed By: #### C BC ####[facility] [address] [place] [phone]. Josafat Love RBC 5.04 106/ul Normal 4.20-5.[address] [facility] Comment on above: Performed By: #### C BC ####[facility] [address] [place] [phone]. Josafat Love WBC 9.9 103/ul Normal 4.0-11.[address] [facility] Comment on above: Performed By: #### C BC ####[facility] [address] [place], [place] [address]DrAllyssa Love LACTATE/LACTIC ACIDon 2022 Lactate [Moles/Vol] 2.2 mmol/L Critically high 0.4-1.9 [facility] Comment on above: Performed By: #### L ACT #### [facility] [address] [place], [place] [address] Dr. Josafat Love PH VENOUS BLOODon 10-12-2022 PCO2 VENOUS 35.3 mmHg Critically low 40.0-52.0 [facility] Comment on above: Performed By: #### P HVEN ####[facility] [address] [place] [address]Dr. Josafat Love pH VENOUS 7.426 Normal 7.330-7.430 [facility] Comment on above: Performed By: #### P HVEN ####[facility] [address] [place] [address]DrAllyssa Love PROF 14(COMP METB)on 023 Albumin [Mass/Vol] 3.8 g/dL Normal 3.4-5.0 [facility] Comment on above: Performed By: #### H STROPN, CMP, BNP ####[facility] [address] [place] [address]DrAllyssa Love Albumin/Globulin [Mass ratio] 1.2 {ratio} Normal [facility] Comment on above: Performed By: #### H STROPN, CMP, BNP ####[facility] [address] [place] [address]Dr. Josafat Love ALP [Catalytic activity/Vol] 90 U/L Normal 46-[address] [facility] Comment on above: Performed By: #### H STROPN, CMP, BNP ####[facility] [address] [place] [address]Dr. Josafat Love ALT [Catalytic activity/Vol] 31 U/L Normal 14-59 [facility] Comment on above: Performed By: #### H STROPN, CMP, BNP ####[facility] [address] [place] [address]DrAllyssa Love Anion gap [Moles/Vol] 16.3 mmol/L Normal [facility] Comment on above: Performed By: #### H STROPN, CMP, BNP ####[facility] [address]negs[address] [place] [address]Dr. Josafat Love AST [Catalytic activity/Vol] 18 U/L Normal 15-[address] [facility] Comment on above: Performed By: #### H STROPN, CMP, BNP ####[facility] [address] [place] [address]Dr. Josafat Love Bilirubin [Mass/Vol] 0.3 mg/dL Normal 0.2-1.0 [facility] Comment on above: Performed By: #### H STROPN, CMP, BNP ####[facility] [address] [place], [place] [address]Dr. Josafat Love Calcium [Mass/Vol] 9.1 mg/dL Normal 8.5-10.1 [facility] Comment on above: Performed By: #### H STROPN, CMP, BNP ####[facility] [address] [place], [place] [address]Dr. Josafat Love Chloride [Moles/Vol] 106 mmol/L Normal 98-[address] [facility] Comment on above: Performed By: #### H STROPN, CMP, BNP ####[facility] [address] [place], [place] [address]Dr. Josafat Love CO2 [Moles/Vol] 23.8 mmol/L Normal 21.0-32.0 [facility] Comment on above: Performed By: #### H STROPN, CMP, BNP ####[facility] [address] [place], [place] [address]Dr. Josafat Love Creatinine [Mass/Vol] 1.00 mg/dL Normal 0.55-1.02 [facility] Comment on above: Performed By: #### H STROPN, CMP, BNP ####[facility] [address] [place], [place] [address]Dr. Josafat Love EGFR-AF KENYAN >60 Normal >=60 [facility] Comment on above: Performed By: #### H STROPN, CMP, BNP ####[facility] [address] [place] [address]Dr. Josafat Love EGFR-NON AF KENYAN 57 mL/min/1.73m2 Critically low >=[address] [facility] Comment on above: Performed By: #### H STROPN, CMP, BNP ####[facility] [address] [place] [address]Dr. Josafat Love Globulin (S) [Mass/Vol] 3.3 g/dL Normal [facility] Comment on above: Performed By: #### H STROPN, CMP, BNP ####[facility] [address] [place] [address]Dr. Josafat Love Glucose [Mass/Vol] 128 mg/dL Critically high 74-106 [facility] Comment on above: Performed By: #### H STROPN, CMP, BNP ####[facility] [address] [place] [address]Dr. Josafat Love Potassium [Moles/Vol] 4.1 mmol/L Normal 3.5-5.1 [facility] Comment on above: Performed By: #### H STROPN, CMP, BNP ####[facility] [address] [place] [address]Dr. Josafat Love Protein [Mass/Vol] 7.1 g/dL Normal 6.4-8.2 [facility] Comment on above: Performed By: #### H STROPN, CMP, BNP ####[facility] [address] [place] [address]Dr. Josafat Love Sodium [Moles/Vol] 142 mmol/L Normal 136-145 [facility] Comment on above: Performed By: #### H STROPN, CMP, BNP ####[facility] [address]ev[address] [place] [address]Dr. Josafat Love Urea nitrogen [Mass/Vol] 20.0 mg/dL Critically high 7.0-18.0 [facility] Comment on above: Performed By: #### H STROPN, CMP, BNP ####[facility] [address] [place] [address]Dr. Josafat Love Urea nitrogen/Creatinine [Mass ratio] 20.0 mg/mg Normal [facility] Comment on above: Performed By: #### H STROPN, CMP, BNP ####[facility] [address] [place] [phone]. Josafat Love PROTIMEon 10-12-2022 INR Coag (PPP) [Relative time] {INR} Normal [facility] Comment on above: Performed By: #### P TT, PT #### [facility] [address] [place] [address] [address] Josafat Love INR GUIDELINES SEE BELOW Normal [facility] Comment on above: Result Comment: LIZETH RED INR: 2.0 - 3.0 CONDITIONS NOT LISTED BELOW 2.5 - 3.5 FOR PROSTHETIC HEART VALVE REPLACEMENT 2.5 - 3.5 RECURRENT THROMBOSIS Performed By: #### P TT, PT #### [facility] [address] [place] [address] [address] Josafat Love PT Coag (PPP) [Time] 9.8 s Normal 9.0-11.6 [facility] Comment on above: Performed By: #### P TT, PT #### [facility] [address] [place] [address] [address] Josafat Love PTTon 10-12-2022 aPTT Coag (Bld) [Time] 26.9 s Normal 22.3-36.[address] [facility] Comment on above: Performed By: #### P TT, PT #### [facility] [address] [place] [address] Dr. Josafat Love TROPONIN, HIGH SENSITIVITYon 10-12-2022 HSTROP <4.0 Normal 4.0-51.[address] [facility] Comment on above: Result Comment: CUT- OFF POINTS HAVE BEEN ESTABLISHED BASED ON THE FOURTH UNIVERSAL DEFINITIONS OF MYOCARDIAL INFARCTION. THE UPPER REFERENCE LIMIT (URL) OF TROPONIN, DEFINED THE 99TH PERCENTILE OF cTnI DISTRIBUTION IN A REFERENCE POPULATION, HAS BEEN CONFIRMED THE DECISION THRESHOLD FOR VA DIAGNOSIS. Performed By: #### H STROPN, CMP, BNP ####[facility] [address] [place] [phone]. Josafat Love XR CHEST 1 Von 03-08-2023 XR CHEST 1 V EXAM: XR CHEST [...] by: LOWELL VASQUES Date: 2022-10-12 17:11 Normal [facility] NM STRESS/REST MULTIon 05-16 NM STRESS/REST MULTI Patient: AMALIA JEFFERY Exam Date: 05/16/2022 : 1965 Gender:F Ordering : [facility] Admission #: [id number] Family : Order #: [id number] CLICK HERE TO VIEW EXAM RADIOLOGY REPORT PROCEDURE: RADIONUCLIDE IMAGING STRESS/REST MULTI COMPARISON: NM STRESS/REST MULTI, 09/14/2017. CA STRESS/REST MULTI, 05/19/2015. INDICATIONS: Chest pain TECHNIQUE: [...] Beyer MD on 05/17/2022 at 07:17 Normal [facility] XR CHEST 1 Von 04-11-2022 XR CHEST [...] by: CANDI LANGFORD Date: 2022-04-11 16:00 Normal [facility] XR CHEST 1 Von 01-14-2022 XR CHEST [...] by: TRISTIAN GASPAR Date: 2022-01-13 23:23 Normal [facility] CBC AUTO DIFFon 01-13-2022 BASO # 0.0 103/ul Normal 0.0-0.1 [facility] Comment on above: Performed By: #### C BC #### [facility] [address] [place], [place] [address] Dr. Josafat Love Basophils/100 WBC (Bld) 0.4 % Normal 0.2-2.0 [facility] Comment on above: Performed By: #### C BC #### [facility] [address] [place], [place] [address] Dr. Josafat Love EO # 0.0 103/ul Normal 0.0-0.7 [facility] Comment on above: Performed By: #### C BC #### [facility] [address] [place] [address] Dr. Josafat Love Eosinophils/100 WBC (Bld) 0.6 % Critically low 0.9-7.0 [facility] Comment on above: Performed By: #### C BC #### [facility] [address] [place] [address] Dr. Josafat Love Erythrocyte distribution width (RBC) [Ratio] 13.0 % Normal 11.0-15.0 [facility] Comment on above: Performed By: #### C BC #### [facility] [address] [place] [address] Dr. Josafat Love Hematocrit (Bld) [Volume fraction] 42.6 % Normal 36.0-48.0 [facility] Comment on above: Performed By: #### C BC #### [facility] [address] [place] [address] Dr. Josafat Love Hemoglobin (Bld) [Mass/Vol] 14.4 g/dL Normal 12.0-16.0 [facility] Comment on above: Performed By: #### C BC #### [facility] [address] [place] [address] Dr. Josafat Love IG # 0.02 10e3/ul Normal 0.00-0.03 [facility] Comment on above: Performed By: #### C BC #### [facility] [address] [place] [address] Dr. Josafat Love IG % 0.3 % Normal 0.0-0.5 [facility] Comment on above: Performed By: #### C BC #### [facility] [address] [place] [address] Dr. Josafat Love LYMPH # 0.4 103/ul Critically low 1.2-3.8 [facility] Comment on above: Performed By: #### C BC #### [facility] [address] [place] [address] Dr. Josafat Love Lymphocytes/100 WBC (Bld) 6.4 % Critically low 20.5-60.0 [facility] Comment on above: Performed By: #### C BC #### [facility] [address] [place] [address] Dr. Josafat Love MANUAL DIFF REQ NO Normal [facility] Comment on above: Performed By: #### C BC #### [facility] [address] [place] [address] Dr. Josafat Love MCH (RBC) [Entitic mass] 30.8 pg Normal 26.7-34.0 [facility] Comment on above: Performed By: #### C BC #### [facility] [address] [place] [address] Dr. Josafat Love MCHC (RBC) [Mass/Vol] 33.8 g/dL Normal 29.9-35.2 [facility] Comment on above: Performed By: #### C BC #### [facility] [address] [place] [address] Dr. Josafat Love MCV (RBC) [Entitic vol] 91.2 fL Normal 81.0-99.0 [facility] Comment on above: Performed By: #### C BC #### [facility] [address] [place] [address] Dr. Josafat Love MONO # 0.5 103/ul Normal 0.3-0.8 [facility] Comment on above: Performed By: #### C BC #### [facility] [address] [place] [address] Dr. Josafat Love Monocytes/100 WBC (Bld) 7.9 % Normal 1.7-12.0 [facility] Comment on above: Performed By: #### C BC #### [facility] [address] [place] [address] Dr. Josafat Love NEUT # 5.7 103/ul Normal 1.4-6.[address] [facility] Comment on above: Performed By: #### C BC #### [facility] [address] [place] [address] Dr. Josafat Love Neutrophils/100 WBC (Bld) 84.4 % Critically high 43.0-75.0 [facility] Comment on above: Performed By: #### C BC #### [facility] [address] [address] [address] Josafat Love Platelet mean volume (Bld) [Entitic vol] 8.5 fL Critically low 9.5-13.5 [facility] Comment on above: Performed By: #### C BC #### [facility] [id number] Josafat Love PLT 242 103/ul Normal 150-[address] [facility] Comment on above: Performed By: #### C BC #### [facility] [address] [address] [address] Josafat Love RBC 4.67 106/ul Normal 4.20-5.40 [facility] Comment on above: Performed By: #### C BC #### [facility] [address] [address] [address] Josafat Love WBC 6.7 103/ul Normal 4.0-11.[address] [facility] Comment on above: Performed By: #### C BC #### [facility] [address] [address] [address] Josafat Love CULTURE BLOODon 01-13-2022 Microscopic examination of blood, culture Culture Observations: NO GROWTH AT 5 DAYS. Normal [facility] Comment on above: Performed By: #### B [id number] ####[facility] [id number] [id number]. Josafat Love Covid-19 PCR (CVDTB)on SARS-CoV-2 (COVID-19) RNA JEET+probe Ql (Unsp spec) Detected Critically abnormal NOT DETECTED [facility] Comment on above: Result Comment: This test is not yet approved or cleared by the [place] FDA. When there are no FDA-approved or cleared tests available, and other criteria are met, FDA can make tests available under an emergency access mechanism called an Emergency Use Authorization (EUA). The EUA for this test is supported by the [place] of Health and Human Service's declaration that [...] used). Performed By: #### C VDTBH #### [facility] [address] [place] [address] Dr. Josafat Love INFLUENZA A AND B AGon 01-13 [facility] SEE BELOW Normal [facility] Comment on above: Result Comment: Nega tive for Flu A protein angiten. Infection due to Flu A cannot be ruled out. Flu A angiten in the sample may be below the detection limit of the test. Performed By: #### I NFLUAB #### [facility] [address] [place] [address] Dr. [facility] SEE BELOW Normal [facility] Comment on above: Result Comment: Nega tive for Flu B protein antigen. Infection due to Flu B cannot be ruled out. Flu B antigen in the sample may be below the detection limit of the test. Performed By: #### I NFLUAB #### [facility] [address] [place] [address] Dr. Josafat Love INFLUENZA A AG Negative Normal NEGATIVE SEE COMMENT [facility] Comment on above: Performed By: #### I NFLUAB #### [facility] [address] [place] [address] Dr. Josafat Love INFLUENZA B AG Negative Normal NEGATIVE SEE COMMENT [facility] Comment on above: Performed By: #### I NFLUAB #### [facility] [address] [place] [address] Dr. Josafat Love INTERNAL CONTROLS Within Normal Limits Normal Wi thin Normal Limits [facility] Comment on above: Performed By: #### I NFLUAB #### [facility] [address] [place] [address] Dr. Josafat Love LACTATE/LACTIC ACIDon 2021 Lactate [Moles/Vol] 0.8 mmol/L Normal 0.4-1.9 [facility] Comment on above: Performed By: #### L ACT ####[facility] [id number] [address]. Josafat Love PROF 14(COMP METB)on 022 Albumin [Mass/Vol] 3.9 g/dL Normal 3.4-5.0 [facility] Comment on above: Performed By: #### C MP #### [facility] [address] [address] [address] Josafat Love Albumin/Globulin [Mass ratio] 1.2 {ratio} Normal [facility] Comment on above: Performed By: #### C MP #### [facility] [address] [address] [address] Josafat Love ALP [Catalytic activity/Vol] 80 U/L Normal 46-116 [facility] Comment on above: Performed By: #### C MP #### [facility] [address] [place] [address] Dr. Josafat Love ALT [Catalytic activity/Vol] 33 U/L Normal 14-59 [facility] Comment on above: Performed By: #### C MP #### [facility] [address] [place] [address] Dr. Josafat Love Anion gap [Moles/Vol] 14.0 mmol/L Normal [facility] Comment on above: Performed By: #### C MP #### [facility] [address] [place] [address] Dr. Josafat Love AST [Catalytic activity/Vol] 15 U/L Normal 15-37 [facility] Comment on above: Performed By: #### C MP #### [facility] [address] [address] [address] Josafat Love Bilirubin [Mass/Vol] 0.3 mg/dL Normal 0.2-1.0 [facility] Comment on above: Performed By: #### C MP #### [facility] [address] [place] [address] Dr. Josafat Love Calcium [Mass/Vol] 9.0 mg/dL Normal 8.5-10.1 [facility] Comment on above: Performed By: #### C MP #### [facility] [address] [place] [address] Dr. Josafat Love Chloride [Moles/Vol] 105 mmol/L Normal 98-107 [facility] Comment on above: Performed By: #### C MP #### [facility] [address] [address] [address] Josafat Love CO2 [Moles/Vol] 23.0 mmol/L Normal 21.0-32.0 [facility] Comment on above: Performed By: #### C MP #### [facility] [address] [address] [address] Josafat Love Creatinine [Mass/Vol] 0.98 mg/dL Normal 0.55-1.02 [facility] Comment on above: Performed By: #### C MP #### [facility] [address] [place] [address] Dr. Josafat Love EGFR-AF KENYAN >60 Normal >=60 [facility] Comment on above: Performed By: #### C MP #### [facility] [address] [address] [address] Josafat Love EGFR-NON AF KENYAN 59 mL/min/1.73m2 Critically low >=60 [facility] Comment on above: Performed By: #### C MP #### [facility] [address] [place] [address] Dr. Josafat Love Globulin (S) [Mass/Vol] 3.3 g/dL Normal [facility] Comment on above: Performed By: #### C MP #### [facility] [address] [place] [address] Dr. Josafat Love Glucose [Mass/Vol] 109 mg/dL Critically high 74-106 [facility] Comment on above: Performed By: #### C MP #### [facility] [address] [address] [address] Josafat Love Potassium [Moles/Vol] 4.0 mmol/L Normal 3.5-5.1 [facility] Comment on above: Performed By: #### C MP #### [facility] [address] [place] [address] Dr. Josafat Love Protein [Mass/Vol] 7.2 g/dL Normal 6.4-8.2 [facility] Comment on above: Performed By: #### C MP #### [facility] [address] [address] [address] Josafat Love Sodium [Moles/Vol] 138 mmol/L Normal 136-145 [facility] Comment on above: Performed By: #### C MP #### [facility] [address] [address] [address] Josafat Love Urea nitrogen [Mass/Vol] 16.0 mg/dL Normal 7.0-18.0 [facility] Comment on above: Performed By: #### C MP #### [facility] [address] [address] [address] Josafat Love Urea nitrogen/Creatinine [Mass ratio] 16.3 mg/mg Normal [facility] Comment on above: Performed By: #### C MP #### [facility] [address] [place] [address] Dr. Josafat Love Q - PQZQU-2-SAITICIFSOUic GVAJP-0-IVIHKOPOXRS QN 156 mg/dL Normal 83-199 [facility] Information Technology Technician Comment on above: Order Comment: [facility] performed at: [place], [facility], [address] [place] [address], [address] [place] [address], [id number], Weather Stripper: Sal Rosenberg MD [facility] Collection Date/Time: [id number] [facility] Results Received Date/Time: [id number] [facility] Reported Date/Time: [id number] Performed By: #### 6 [id number], [id number], [id number], [id number] #### [facility] Default [address] [place] [address] Q - ASPERGILLUS ABon 021 ASPERGILLUS FLAVUS Negative Normal Negative [facility] Information Technology Technician Comment on above: Order Comment: [facility] performed at: [place], [facility], [address], [place], [place], , Weather Stripper: Silverio W Rafael M.D.,PhD [facility] Collection Date/Time: [facility] Results Received Date/Time: [facility] Reported Date/Time: Performed By: #### 6 [id number], , [id number], [id number] #### [facility] Default [address] [place] [address] ASPERGILLUS FUMIGATUS Negative Normal Negative [facility] Comment on above: Order Comment: [facility] performed at: [facility], [address], [place], [place], , Weather Stripper: Silverio Hall M.D.,PhD [facility] Collection Date/Time: [facility] [...] FRAN. Performed By: #### 6 [id number], , [id number], [id number] #### [facility] Default [address] [place] [address] ASPERGILLUS NIGER Negative Normal Negative [facility] Comment on above: Order Comment: [facility] performed at: [facility], [address], [place], [place], , Weather Stripper: Silverio Hall M.D.,PhD [facility] Date/Time: [facility] Results Received Date/Time: [facility] Reported Date/Time: Performed By: #### 6 [id number], , [id number], [id number] #### [facility] Default [address] [place] [address] Q - EOSINOPHIL COUNTon 07-12 EOSABS 150 cells/uL Normal 15-500 [facility] Specialist Comment on above: Order Comment: [facility] performed at: [facility], [facility], [address], [address] [place] [address], [address] [place] [address], Weather Stripper: Sal Rosenberg MD [facility] Collection Date/Time: [facility] Results Received Date/Time: [facility] Reported Date/Time: Performed By: #### 6 [id number], [id number], [id number], 425X #### [facility] Default [address] [place] [address] Eosinophils/100 WBC (Bld) 2.5 % Normal [facility] Comment on above: Order Comment: [facility] performed at: [place], [facility], [facility], [address] [place] [address], [address] [place] [address], Weather Stripper: Sal Rosenberg MD [facility] Date/Time: [facility] Results Received Date/Time: [facility] Reported Date/Time: Performed By: #### 6 [id number], [id number], [id number], 425X #### [facility] Default [address] [place] [address] WBC (Bld) [#/Vol] 6.0 10*3/uL Normal 3.8-10.8 [place] Comment on above: Order Comment: [facility] performed at: [place], [facility], [facility], [address] [place] [address], [address] [place] [address], Weather Stripper: Sal Rosenberg MD [facility] Date/Time: [facility] Results Received Date/Time: [facility] Reported Date/Time: Performed By: #### 6 [id number], , [id number], [id number] #### [facility] Default [address] [place] [address] Q - IGE,SERUMon 07-12-2021 IMMUNOGLOBULIN E 16 kU/L Normal [facility] Comment on above: Order Comment: [facility] performed at: [place], [facility], [address] [facility], [address] [place] [address], [address] [place] [address], Weather Stripper: Sal Rosenberg MD [facility] Date/Time: [id number] [facility] Results Received Date/Time: [id number] [facility] Reported Date/Time: [id number] Performed By: #### 6 [id number], [id number], [id number], 425X #### [facility] Default [address] [place] [address] Vital Signs Date Time Vital Sign Value Performing Clinician Facility 05-14-2024 10:34-0400 Body height 154.9 cm Viridianaallan Estevezz FIRE RANGE TECHNICIAN Work Phone: [facility] 05-14-2024 10:34-0400 Body mass index (BMI) [Ratio] 22.94 kg/m2 Viridiana Aichholz FIRE RANGE TECHNICIAN Work Phone: [facility] 05-14-2024 10:34-0400 Body temperature 98.01 [degF] Viridiana Aichholz FIRE RANGE TECHNICIAN Work Phone: [facility] 05-14-2024 10:34-0400 Body weight 55.07 kg Viridiana Aichholz FIRE RANGE TECHNICIAN Work Phone: [facility] 05-14-2024 10:34-0400 Diastolic blood pressure 80 mm[Hg] Viridiana Aichholz FIRE RANGE TECHNICIAN Work Phone: [facility] 05-14-2024 10:34-0400 Heart rate 77 /min Viridiana Aichholz FIRE RANGE TECHNICIAN Work Phone: [facility] 05-14-2024 10:34-0400 Respiratory rate 19 /min Viridiana Aichholz FIRE RANGE TECHNICIAN Work Phone: [facility] 05-14-2024 10:34-0400 SaO2% (BldA) [Mass fraction] 99 % Viridiana Aichholz FIRE RANGE TECHNICIAN Work Phone: [facility] 05-14-2024 10:34-0400 Systolic blood pressure 120 mm[Hg] Viridiana Aichholz FIRE RANGE TECHNICIAN Work Phone: [facility] 10-04-2022 09:15-0500 Body height 153.67 cm Magdalena Carrington Other [facility] Other 10-04-2022 09:15-0500 Body mass index (BMI) [Ratio] 32.65 kg/m2 Magdalena Carrington Other [facility] Other 10-04-2022 09:15-0500 Body temperature 97.8 [degF] Magdalena Carrington Other [facility] Other 10-04-2022 09:15-0500 Body weight 77.11 kg Magdalena Carrington Other [facility] Other 10-04-2022 09:15-0500 Respiratory rate 18 /min Magdalena Carrington Other [facility] Other 10-04-2022 09:15-0500 SaO2% (BldA) [Mass fraction] 95 % Magdalena Carrington Other [facility] Other 04-08-2022 19:10-0400 Body height 153.67 cm Ale Victoria Other [facility] Other 04-08-2022 19:10-0400 Body mass index (BMI) [Ratio] 34.38 kg/m2 Ale Victoria Other [facility] Other 04-08-2022 19:10-0400 Body temperature 97.8 [degF] Ale Victoria Other [facility] Other 04-08-2022 19:10-0400 Body weight 81.19 kg Ale Victoria Other [facility] Other 04-08-2022 19:10-0400 Diastolic blood pressure 77 mm[Hg] Ale Victoria Other [facility] Other 04-08-2022 19:10-0400 Respiratory rate 18 /min Ale Victoria Other [facility] Other 04-08-2022 19:10-0400 SaO2% (BldA) [Mass fraction] 96 % Ale Victoria Other [facility] Other 04-08-2022 19:10-0400 Systolic blood pressure 120 mm[Hg] Ale Victoria Other [facility] Other Encounters Encounter Date Encounter Type Care Provider Facility Start: 06-18-2024 End: 06-18-2024 ambulatory VIRIDIANA MARK Not Available Start: 06-13-2024 End: 06-13-2024 Orders Only Viridiana Mark FIRE RANGE TECHNICIAN Work Phone: [facility] Comment on above: Biliary dyskinesia ( Primary Dx) Start: 06-10-2024 End: 06-10-2024 Emergency department patient visit VIRIDIANA MARK [facility] Start: 05-20-2024 End: 05-20-2024 Orders Only Viridiana Mark FIRE RANGE TECHNICIAN Work Phone: [facility] Comment on above: Nausea and vomiting, unspecified vomiting type (Primary Dx); Unexplained weight loss Start: 05-14-2024 End: 05-14-2024 Bamboo flowsheet Viridiana Mark FIRE RANGE TECHNICIAN Work Phone: [facility] Start: 05-14-2024 End: 05-14-2024 Bamboo flowsheet Viridiana Mark FIRE RANGE TECHNICIAN Work Phone: [facility] Start: 05-14-2024 End: 05-14-2024 Patient encounter procedure Viridiana Mark FIRE RANGE TECHNICIAN Work Phone: [facility] Comment on above: Encounter for subseq uent annual wellness visit (AWV) in Medicare patient (Primary Dx); Tobacco dependence; Centrilobular emphysema (CMS/HCC); Unexplained weight loss; Gastroesophageal reflux disease, unspecified whether esophagitis present; Nausea and vomiting, unspecified vomiting type; Oral thrush Start: 05-14-2024 End: 05-14-2024 ambulatory VIRIDIANA AICHHOLZ Not Available Start: 04-07-2024 End: 04-08-2024 Emergency department patient visit ALEC BLAKE [facility] Start: 03-07-2024 End: 03-07-2024 ambulatory VIRIDIANA AICHHOLZ Not Available Start: 02-28-2024 End: 02-29-2024 Emergency department patient visit SONAL JIM [facility] Start: 12-06-2023 End: 12-06-2023 ambulatory ZANDRA BAI Not Available Start: 09-14-2023 Telephone encounter Zandra cyr DO Work Phone: [facility] Start: 10-12-2022 End: 10-12-2022 ambulatory MEDICAL DOCTOR MD VIRIDIANA AICHHOLZ Facility:[facility] Start: 10-04-2022 End: 10-04-2022 ambulatory Magdalena Charissa Other [facility] Other Start: 10-04-2022 Office outpatient vi sit 15 minutes Magdalena Charissa [facility] Start: 08-01-2022 End: 08-01-2022 ambulatory MEDICAL DOCTOR MD VIRIDIANA AICHHOLZ Facility:[facility] Start: 05-16-2022 End: 05-17-2022 ambulatory MEDICAL DOCTOR MD VIRIDIANA AICHHOLZ Facility:[facility] Start: 04-19-2022 End: 04-20-2022 ambulatory MEDICAL DOCTOR MD VIRIDIANA AICHHOLZ Facility:[facility] Start: 04-11-2022 End: 04-11-2022 ambulatory MEDICAL DOCTOR MD VIRIDIANA AICHHOLZ Facility:[facility] Start: 04-08-2022 End: 04-08-2022 ambulatory Ale Victoria Other [facility] Other Start: 04-08-2022 Office outpatient vi sit 15 minutes Ale Victoria [facility] Start: 01-13-2022 End: 01-14-2022 ambulatory MEDICAL DOCTOR MD VIRIDIANA MARK Facility:[facility] Procedures Date Procedure Procedure Detail Performing Clinician Start: 03-07-2024 Mammography Viridiana hernández FIRE RANGE TECHNICIAN Work Phone: Start: 03-07-2024 Microscopic observat ion [Identifier] in Cervix by Cyto stain Viridiana Mark FIRE RANGE TECHNICIAN Work Phone: Plan of Treatment Date Care Activity Detail Author Start: 03-07-2027 Screening for malign ant neoplasm of cervix [facility] Start: 05-14-2025 Medicare Annual Well ness (AWV) Medicare Annual Wellness (AWV) [facility] Start: 03-07-2025 Screening for malign ant neoplasm of breast Mammogram [facility] Start: 03-07-2025 Screening for malign ant neoplasm of colon Colorectal Cancer Screening [facility] Comment on above: Postponed from 11/23 (Patient Refused) Start: 06-18-2024 End: 06-18-2024 Patient encounter procedure 06/18/2024 2:00 PM EST Office Visit [facility] [address] [place] [id number] Viridiana Mark, FRANCES [address] [place] [id number] [facility] Start: 06-06-2024 Influenza vaccination Influenza Vacc ine (#1) [facility] Comment on above: Postponed from 04/07 (Patient Does Not Have Time) Start: 05-20-2024 End: 05-20-2025 NM Gallbladder Views W cholecystokinin and W radionuclide IV NM hepatobiliary w cholecystokinin Imaging Routine Nausea and vomiting, unspecified vomiting type Unexplained weight loss Expected: 05/20/2024 (Approximate), Expires: 05/20/2025 [facility] Work Phone: Comment on above: Expected: 05/20/2024 (Approximate), Expires: 05/20/2025 Start: 05-14-2024 End: 05-14-2025 Amylase [Enzymatic activity/volume] in Serum or Plasma Amylase Lab Routine Nausea and vomiting, unspecified vomiting type Expected: 05/14/2024 (Approximate), Expires: 05/14/2025 [facility] Comment on above: Expected: 05/14/2024 (Approximate), Expires: 05/14/2025 Start: 05-14-2024 End: 05-14-2025 C reactive protein [Mass/volume] in Serum or Plasma C-reactive protein Lab Routine Unexplained weight loss Expected: 05/14/2024 (Approximate), Expires: 05/14/2025 [facility] Work Phone: Comment on above: Expected: 05/14/2024 (Approximate), Expires: 05/14/2025 Start: 05-14-2024 End: 05-14-2025 Erythrocyte sedimentation rate Sedimentation rate, automated Lab Routine Unexplained weight loss Expected: 05/14/2024 (Approximate), Expires: 05/14/2025 [facility] Comment on above: Expected: 05/14/2024 (Approximate), Expires: 05/14/2025 Start: 05-14-2024 End: 05-14-2025 Lipase [Enzymatic activity/volume] in Serum or Plasma Lipase Lab Routine Nausea and vomiting, unspecified vomiting type Expected: 05/14/2024 (Approximate), Expires: 05/14/2025 [facility] Comment on above: Expected: 05/14/2024 (Approximate), Expires: 05/14/2025 Start: 05-14-2024 End: 05-14-2025 Thyroxine (T4) free [Mass/volume] in Serum or Plasma T4, free Lab Routine Unexplained weight loss Expected: 05/14/2024 (Approximate), Expires: 05/14/2025 [facility] Comment on above: Expected: 05/14/2024 (Approximate), Expires: 05/14/2025 Start: 05-14-2024 End: 05-14-2025 Triiodothyronine (T3) Free [Mass/volume] in Serum or Plasma T3, free Lab Routine Unexplained weight loss Expected: 05/14/2024 (Approximate), Expires: 05/14/2025 [facility] Comment on above: Expected: 05/14/2024 (Approximate), Expires: 05/14/2025 Start: 05-14-2024 End: 05-14-2025 US Gallbladder US gallbladder Imaging Routine Unexplained weight loss Nausea and vomiting, unspecified vomiting type Expected: 05/14/2024 (Approximate), Expires: 05/14/2025 [facility] Comment on above: Expected: 05/14/2024 (Approximate), Expires: 05/14/2025 Start: 05-14-2024 End: 05-14-2024 Patient encounter procedure 05/14/2024 10:30 AM EDT Office Visit [facility] [address] [place] [address] Viridiana Mark, FRANCES [address] [place] [id number] Tobacco dependence (Primary Dx) [facility] Comment on above: Tobacco dependence ( Primary Dx) Start: 04-07-2024 Influenza vaccination Influenza Vacc ine (#1) [facility] Start: 04-07-2023 Influenza vaccination Influenza Vacc ine (#1) [facility] Start: 2005 Screening for malign ant neoplasm of breast Mammogram [facility] Start: 11-24-1995 Screening for malign ant neoplasm of cervix [facility] Start: 1986 Screening for malign ant neoplasm of cervix Pap Smear [facility] Start: 1965 Medicare Annual Well ness (AWV) Medicare Annual Wellness (AWV) [facility] Start: 1965 Screening for malign ant neoplasm of colon [facility] Immunizations Immunization Date Immunization Notes Care Provider [facility] 06-20-2022 Influenza, injectabl e, Madin Keshia Canine Kidney, preservative free, quadrivalent Viridiana Aichholz [employer] TECHNICIAN Work Phone: [facility] 06-20-2022 influenza virus vacc ine, unspecified formulation Zandra Bai DO Work Phone: [facility] 04-22-2011 influenza, seasonal, injectable Viridiana Aicamayaholz [employer] TECHNICIAN Work Phone: [facility] 04-22-2011 pneumococcal polysaccharide vaccine, 23 valent Viridiana Deedee [employer] TECHNICIAN Work Phone: [facility] Payers Date Payer Category Payer Medicare [employer] UHC DUAL COMPLETE [id number] 2023-Present [address] [place] [address] [id number] 2023 Medicare (Managed Care) [facility] [id number] 2023 Medicare [id number] 2020 Medicaid [id number] 1965 Unknown [id number] 2.16.840.1.855651.3.579.2. 593 1965 Unknown [id number] 2.16.840.1.304878.3.579.2. 593 1965 Unknown [id number] 2.16.840.1.431394.3.579.2. 593 1965 Unknown [id number] 2.16.840.1.479429.3.579.2. 593 1965 Unknown [id number] 2.16.840.1.768765.3.579.2. 593 1965 Unknown [id number] 2.16.840.1.628755.3.579.2. 593 1965 Unknown [id number] 2.16.840.1.746474.3.579.2. 1286 1965 Unknown [id number] 2.16.840.1.660507.3.579.2. 1285 1965 Unknown [id number] 2.16.840.1.444922.3.579.2. 1285 1965 Unknown [id number] 2.16.840.1.446367.3.579.2. 1285 1965 Unknown [id number] 2.16.840.1.156341.3.579.2. 1285 1965 Unknown [id number] 2.16.840.1.610137.3.579.2. 1285 1965 Unknown [id number] 2.16.840.1.957140.3.579.2. 1285 1965 Unknown [id number] 2.16.840.1.563599.3.579.2. 1285 1965 Unknown [id number] 2.16.840.1.153348.3.579.2. 1258 1965 Unknown [id number] 2.16.840.1.865069.3.579.2. 1258 1965 Unknown [id number] 2.16.840.1.898340.3.579.2. 1258 1965 Unknown [id number] 2.16.840.1.748781.3.579.2. 1258 1965 Unknown [id number] 2.16.840.1.758987.3.579.2. 1259 1959 Medicaid [id number] 2.16.840.1.176513.19 1959 Medicare [id number] 2.16.840.1.966279.19 1959 Medicare [id number] Social History Date Type Detail Facility Unknown if ever smoked [facility] Other Start: 03-07-2024 End: 05-14-2024 Sex Assigned At Urge Other Tobacco smoking status MEIS Tobacco smoking consumption unknown [facility] Start: 1965 Sex Assigned At Not on file [facility] Start: 12-06-2023 Tobacco smoking status MEIS Smokes tobacco daily [facility] History of [...] of the risks of continued smoking: stroke, VA, all forms of cancer, lung disease, and [...] 2.5 mg, Nebulization, 4 times daily PRN Jhjzfsl-Lvzygewwoia-Hkrpvmqqlv (Breztri Aerosphere) 160-9-4.8 MCG/ACT aerosol 2 puffs, [...] Date Anxiety COPD (chronic obstructive pulmonary disease) ([facility]) History reviewed. No pertinent surgical history. family [...] of the risks of continued smoking: stroke, VA, all forms of cancer, lung disease, and [...] use of inhaler Relevant Medications nystatin (Mycostatin) 003269 UNIT/ML suspension documented in this encounter [facility] Clinical Note 04-07-2024 Note Date & Type Note Facility 04-07-2024 Note XR KNEE LT 3 VWS Procedure: Left knee radiographs performed Number of views:3 History:Trauma knee pain Comparison:None Findings: There is no fracture, dislocation, effusion, or destructive lesion. Impression: No acute findings. Finalized by Fermín Porras MD on 04/07/2024 11:04 AM [facility] Telephone encounter Note 09-14-2023 Telephone Encounter - Josie Christianal - 09/14/2023 3:12 PM EST Note Date & Type Note Facility 09-14-2023 Telephone encount er Note Patient called lvm at 2:38pm saying her breathing machine stopped working and needs a prescription order for a new machine sent to [facility] pharmacy. Thank you [facility] Note 09-14-2023 Telephone Encounter - Josie George - 09/14/2023 3:12 PM EST Note Date & Type Note Facility 09-14-2023 Miscellaneous Notes Formattin g of this note might be different from the original. Patient called lvm at 2:38pm saying her breathing machine stopped working and needs a prescription order for a new machine sent to [facility] pharmacy. Thank you documented in this encounter [facility] Evaluation note 10-04-2022 Note Date & Type Note Facility 10-04-2022 Evaluation note Encounter Date Diagnosis Assessment Notes Sep, Chronic obstructive pulmonary disease with acute exacerbation (ICD-10 - J44.1) Kenalog IM given in office and recommend patient to start oral antihistamine [facility] Other Evaluation note 04-08-2022 Note Date & [...] to only the absolute essential needed assessments. [facility] Other Evaluation note Note Date & Type Note Facility Evaluation note Diagnosis Encounter for subsequent annual wellness visit (AWV) in Medicare patient- Primary Tobacco dependence Tobacco use disorder Centrilobular emphysema (CMS/HCC) Unexplained weight loss Loss of weight Gastroesophageal reflux disease, unspecified whether esophagitis present Nausea and vomiting, unspecified vomiting type Oral thrush Candidiasis of mouth documented in this encounter [facility] Evaluation note Note Date & Type Note Facility Evaluation note Diagnosis Rib pain on right side- Primary Centrilobular emphysema (CMS/HCC) Moderate persistent asthma without complication (CMS/HCC) Encounter for subsequent annual wellness visit (AWV) in Medicare patient- Primary Tobacco dependence Tobacco use disorder Centrilobular emphysema (CMS/HCC) Unexplained weight loss Loss of weight Gastroesophageal reflux disease, unspecified whether esophagitis present Nausea and vomiting, unspecified vomiting type Oral thrush Candidiasis of mouth Nausea and vomiting, unspecified vomiting type- Primary Unexplained weight loss Loss of weight documented in this encounter [facility] Evaluation note Note Date & Type Note Facility Evaluation note Diagnosis Rib pain on right side- Primary Centrilobular emphysema ([facility]/HCC) Moderate persistent asthma without complication ([facility]) Encounter for subsequent annual wellness visit (AWV) in Medicare patient- Primary Tobacco dependence Tobacco use disorder Centrilobular emphysema (CMS/HCC) Unexplained weight loss Loss of weight Gastroesophageal reflux disease, unspecified whether esophagitis present Nausea and vomiting, unspecified vomiting type Oral thrush Candidiasis of mouth Biliary dyskinesia- Primary Other specified disorder of gallbladder documented in this encounter [facility] History general Narrative - Reported Note [...] History Foot Surgery Hospitalization History See Above [facility] Other Summary Purpose Family History No Family History Records FoundNo Family History Records FoundNo Family History Records FoundNo Family History Records Found Advance Directives No Advanced Directives Records FoundNo Advanced Directives Records FoundNo Advanced Directives Records FoundNo Advanced Directives Records Found Additional Source Comments INFORMATION SOURCE (unrecogn ized section and content) DATE CREATED AUTHOR 07/17/2021 [facility] dical Specialist DATE CREATED AUTHOR AUTHOR'S ORGANIZ ATION 10/14/2022 [facility] DATE CREATED AUTHOR AUTHOR'S ORGANIZ ATION 06/11/2024 [facility] DATE CREATED AUTHOR AUTHOR'S ORGANIZ ATION 06/20/2024 [facility] dical Specialists EPIC REASON FOR VISIT (unrecogniz ed section and content) FINGER LACERATION, CUT ON PI EMILY OF [place] 4PM TODAYHISTORY OF COPD; SORE THROAT, SINUS CONGESTION, EARACHE Care Teams (unrecognized sec tion and content) 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 Specialty Start Date End Date Saad Boyce MD PCP - General Family Medicine 02/01/23 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 Specialty Start Date End Date Saad Boyce MD [address] [place] [address] PCP - General Family Medicine 12/06/23 Viridiana Mark NP [address] [place] [address] PCP - [facility] 03/07/24 08/06/24 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 Specialty Start Date End Date Saad Boyce MD [address] [place] [phone] PCP - General Family Medicine 12/06/23 Viridiana Mark NP [address] [place] [address] PCP - [facility] 03/07/24 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/24 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 [facility] [facility]. provides no warranty or guarantee of the accuracy or completeness of information in this document.
[2024-06-24 11:37] LABS: Basophils Absolute Auto 0.1 10^3/uL (0.0-0.1); Basophils Percent Auto 0.7 % (0.2-2.0); Eosinophils Absolute Auto 0.1 10^3/uL (0.0-0.7); Eosinophils Percent Auto 1.1 % (0.9-7.0); Hematocrit 45.8 % (36.0-48.0); Hemoglobin 15.8 g/dL (12.0-16.0); Immature Granulocytes Abs Auto 0.02 10^3/uL (0.00-0.03); Immature Granulocytes Pct Auto 0.3 % (0.0-0.5); Lymphocytes Absolute Auto 2.3 10^3/uL (1.2-3.8); Lymphocytes Percent Auto 31.8 % (20.5-60.0); Mean Corpuscular HGB Conc 34.5 g/dL (29.9-35.2); Mean Corpuscular Hemoglobin 33.3 pg (26.7-34.0); Mean Corpuscular Volume 96.6 fL (81.0-99.0); Mean Platelet Volume 8.7 fL (9.5-13.5); Monocytes Absolute Auto 0.4 10^3/uL (0.3-0.8); Neutrophils Absolute Auto 4.3 10^3/uL (1.4-6.5); Neutrophils Percent Auto 60.1 % (43.0-75.0); Platelet Count 263 10^3/uL (150-450); Red Blood Count 4.74 10^6/uL (4.20-5.40); Red Cell Distribution Width 12.9 % (11.0-15.0); White Blood Count 7.2 10^3/uL (4.0-11.0)
[2024-06-24 12:14] LABS: Erythrocyte Sedimentation Rate 8 mm/hr (<=30)
[2024-06-24 12:33] LABS: Alanine Aminotransferase 16 U/L (14-59); Albumin Globulin Ratio 1.1; Albumin Level 3.5 g/dL (3.4-5.0); Alkaline Phosphatase 75 U/L (46-116); Amylase 92 U/L (25-115); Anion Gap 12.9; Aspartate Amino Transferase 10 U/L (15-37); BUN Creatinine Ratio 13.4; Bilirubin Total 0.5 mg/dL (0.2-1.0); C Reactive Protein <0.50 mg/dL (<=0.50); Carbon Dioxide 28.1 mmol/L (21.0-32.0); Chloride 103 mmol/L (98-107); Chol HDL Ratio 2.8; Cholesterol 189 mg/dL (<=200); Estimated GFR (African America >60 (>=60 mL/min/1.73m^2); Estimated GFR (Non-African Ame >60 (>=60 mL/min/1.73m^2); Free T3 2.45 pg/mL (2.18-3.98); Globulin 3.2 g/dL; Glucose 91 mg/dL (74-106); HDL Cholesterol 68 mg/dL (40-60); Sodium 140 mmol/L (136-145); Thyroid Stimulating Hormone 3.251 uIU/mL (0.358-3.740); Total Protein 6.7 g/dL (6.4-8.2); Triglycerides 110 mg/dL (<=150)
[2024-06-24 12:55] LABS: Bilirubin Urine NEGATIVE (NEGATIVE); Blood Urine TRACE-I (NEGATIVE); Clarity Urine CLEAR (CLEAR); Color Urine YELLOW (YELLOW); Glucose Urine UA NEGATIVE (NEGATIVE); Ketones Urine NEGATIVE (NEGATIVE); Leukocyte Esterase Urine NEGATIVE (NEGATIVE); Nitrite Urine NEGATIVE (NEGATIVE); Protein Urine NEGATIVE (NEG/TRACE); Urobilinogen Urine 0.2 EU/dL (0.2-1.0)
[2024-06-24 13:33] LABS: Urine Microscopic Indicated YES
[2024-06-24 13:35] LABS: Bacteria Urine TRACE #/HPF (NONE SEEN); Cast Seen? NONE SEEN #/LPF (NONE SEEN); Crystals Seen? None Seen #/HPF (None Seen); Mucus Urine NONE SEEN (NONE SEEN); Squamous Epithelial Cell Urine RARE #/LPF (NONE/RARE); WBC Urine 0-2 #/HPF (NONE SEEN)
== END 2024-06-24 11:21 | disposition home or self-care (01) ==
LOC: LAB 11:22
PROVIDERS: PCP Nurse Practitioner; Visit Provider Nurse Practitioner
DX: K21.9 Gastro-esophageal reflux disease without esophagitis (principal); F17.200 Nicotine dependence, unspecified, uncomplicated; R63.4 Abnormal weight loss
CPT/HCPCS: 36415; 80053; 80061; 81001; 82150; 84439; 84443; 84481; 85025; 85652; 86140